=== PATIENT | male | born 1930 | race Caucasian/White ===

== ENCOUNTER 2016-07-23 23:37 | Inpatient (IN) | payer MEDICARE ==
[~2016-07-23] VITALS: Ht 185.4 cm; Wt 73.1 kg
[~2016-07-23 23:37] MED LIST: AMLO10TA2 PO; AMOX1TAB11 PO; AMOX1TAB61 PO; ASPI325T4 PO; FLUT16SP NS; INSU100C4 SQ; INSU100I18 SQ; LISI-334 PO; OMEP20TA PO; SOTA80TA PO; TEMA7.5C PO; TRAZ50TA15 PO; [UNRECOGNIZED DRUG - CODE] MC
[2016-07-24 00:01] LABS: BASO # 0.1 x10^3/uL (0.0-0.2); BASO % 1 % (0-3); EOS % 1 % (0-3); HEMATOCRIT 37.7 % (39.0-53.0); HEMOGLOBIN 12.2 g/dL (13.0-17.5); LYMPH # 0.7 x10^3/uL (1.0-4.8); LYMPH % 13 % (24-48); MEAN CORPUSCULAR HEMOGLOBIN 32 pg (25-35); MEAN CORPUSCULAR HGB CONC 32 g/dL (31-37); MEAN CORPUSCULAR VOLUME 100 fL (79-100); MONO % 8 % (0-9); NEUT % 77 % (31-73); PLATELET COUNT 191 x10^3/uL (140-400); RED BLOOD COUNT 3.76 x10^6/uL (4.30-5.70); RED CELL DISTRIBUTION WIDTH 13.8 % (11.5-14.5); WHITE BLOOD COUNT 5.8 x10^3/uL (4.0-11.0)
[2016-07-24 00:14] LABS: BLOOD UREA NITROGEN 20 mg/dL (8-26); CALCIUM 9.2 mg/dL (8.5-10.1); CARBON DIOXIDE > 45 mmol/L (21-32); CHLORIDE 98 mmol/L (98-107); CREATININE 0.7 mg/dL (0.7-1.3); GFR 107.2; GLUCOSE 145 mg/dL (70-99); POTASSIUM 3.1 mmol/L (3.5-5.1); SODIUM 148 mmol/L (136-145)
[2016-07-24 00:20] LABS: ALBUMIN 2.9 g/dL (3.4-5.0); ALK PHOS 111 U/L (46-116); ALT (SGPT) 16 U/L (16-63); AST (SGOT) 16 U/L (15-37); TOTAL BILIRUBIN 0.6 mg/dL (0.2-1.0); TOTAL PROTEIN 6.9 g/dL (6.4-8.2)
[2016-07-24 00:21] LABS: DIRECT BILIRUBIN 0.1 mg/dL (0.0-0.2)
[2016-07-24 00:58] LABS: BILIRUBIN,URINE NEGATIVE (NEG); GLUCOSE,URINE NEGATIVE (NEG); NITRITE,URINE POSITIVE (NEG); PROTEIN,URINE NEGATIVE (NEG-TRACE)
--- NOTE | 2016-07-24 01:01 | ACF ---
Admission Forms Criteria CHEST PAIN Clinical Indications for Admission to Inpatient Care (Place 'X' for any and all applicable criteria): Admission is indicated for chest pain and ANY ONE of the following(1)(2)(3)(4)(5 ): [ ]I. Angina with acute coronary syndrome (Also use Myocardial Infarction or Angina guideline) [ ]II. Hemodynamic instability [ ]III. Angina needing acute intervention as indicated by ALL of the following( 11)(12): [ ]a) Unstable angina is present as indicated by angina that is ANY ONE of the following: [ ]i) New onset [ ]ii) Nocturnal [ ]iii) Prolonged at rest [ ]iv) Progressive [ ]b) Angina warrants acute intervention as indicated by ANY ONE of the following: [ ]i) Recurrent angina (e.g, not responding as previously to treatment) [ ]ii) Angina at rest or with low-level activities despite initial medical therapy [ ]iii) New or presumably new ST-segment depression on ECG [ ]iv) Signs or symptoms of heart failure (eg, dyspnea, pulmonary edema) [ ]v) New or worsening mitral regurgitation [ ]vi) Hemodynamic instability [ ]vii) Dangerous arrhythmia (eg, sustained ventricular tachycardia) [ ]viii) History of percutaneous coronary intervention within 6 months [ ]ix) History of coronary artery bypass graft surgery [ ]x) BLAINE risk score of 2 or greater[A] [ ]xi) History of Diabetes(14) [ ]xii) High-risk cardiac ischemia findings on noninvasive testing (e.g, echocardiogram, treadmill testing, nuclear scan) [ ]xiii) Chronic renal insufficiency (ie, estimated GFR less than 60 mL/min/1.732m) [ ]xiv) Left ventricular ejection fraction less than 40% [ ]IV. Evidence of KS (eg, cardiac biomarkers positive, ST-segment elevation on ECG) also use Myocardial Infarction Criteria Form. [ ]V. Pulmonary edema [X]. Respiratory distress [ ]VII. Chest pain indicative of serious diagnosis other than coronary artery disease (eg, aortic dissection) [ ]VIII. Contraindications and/or Inappropriate clinical situations for Observational Care in patients with Chest Pain, when ANY ONE of the following is required: [ ]a) Patient with risk factor for pulmonary embolism, acute coronary syndrome and myocardial infarction (18) [ ]b) Patient with Pulmonary embolism require an average LOS of 4.3 days, therefore emergency department observation management is inappropriate 18,23 [ ]c) Painful condition/s in the elderly, have the highest rate of recidivism after emergency department observation management (10.8%) 20,21,22 [ ]d) Elevated cardiac biomarker requires intensive and exhaustive care (19) [ ]IX. General contraindications and/or Inappropriate clinical situations for Observational Care in patients with Chest Pain, when ANY ONE of the following is required: [ ]a) Prediction of prolongation of LOS based on ANY ONE of the following may be considered as a contraindication for observational care 2, 3, 4, 5, 6, 7, 8, 9, 10, 11 [ ]i) Age > 65 yrs. [ ]ii) Patient arriving by ambulance [ ]iii) Patient with high acuity [ ]iv) Patient requiring vital sign monitoring [ ]v) Patient on IV medication [ ]b) Systolic blood pressures 180mmHg 3,12 [ ]c) Patient with altered mental status including delirium and other alteration of consciousness, (3) [ ]d) Patient whose discharge disposition will be to a correction home or rehabilitation home should not be managed in Emergency Department Observation Unit. CMS rule requires 3 days hospital stay before such placement. 3,13 [ ]e) Patient with failure to thrive due to broad array of etiologies 3,16,17 [ ]f) Inability to ambulate 3,14 Extended stay beyond goal length of stay may be needed for (1)(28): [ ]a) Specific condition diagnosed after evaluation (eg, pulmonary embolism, aortic dissection) [ ]b) Unstable angina [ ]c) Continued suspicion of acute coronary syndrome with inability to complete needed cardiac evaluation (eg, patient clinically unable to undergo stress testing) [ ]d) Myocardial infarction (Contents from ANGINA and CHEST PAIN clinical indications for admission to inpatient care have been integrated in this form) The original [employer] content created by [employer] has been revised. The portions of the content which have been revised are identified through the use of italic text or in bold, and [employer] has neither reviewed nor approved the modified material. All other unmodified content is copyright [employer]. Please see references footnoted in the original [employer] edition 2016 MIRIAM HORN Jul 24, 2016 01:01
[2016-07-24 01:03] LABS: BACTERIA,URINE MANY /HPF (0-FEW); RBC,URINE 0 /HPF (0-2); SQUAMOUS EPITHELIAL CELL,UR FEW /LPF
[2016-07-24 01:04] LABS: YEAST,URINE PRESENT /HPF
--- NOTE | 2016-07-24 01:16 | RAD ---
INDICATION: Fell, hit back of head. COMPARISON: None TECHNIQUE: Axial, noncontrast CT images obtained through the head and cervical spine. Coronal and sagittal reformats are provided of the cervical spine. One or more of the following individualized dose reduction techniques were utilized for this examination: 1. Automated exposure control; 2. Adjustment of the mA and/or kV according to patient size; 3. Use of iterative reconstruction technique. FINDINGS: No acute intracranial process is identified, specifically no acute blood products, midline shift, mass effect or extra-axial fluid collections. Ventricles and sulci appear appropriate for patient's age. Basilar cisterns are maintained. Periventricular and subcortical white matter low attenuation is nonspecific although suggestive of chronic microvascular ischemic changes. Intracranial calcifications are present. The visualized paranasal sinuses are clear. Mastoid air cells are clear. No calvarial fracture is present. Overlying scalp is intact. No acute fracture or dislocation is seen within the cervical spine. The C1-C2 articulation is maintained. Normal cervical lordosis and alignment is maintained. The posterior elements are intact. Scattered degenerative changes are present. Visualized soft tissues of the neck demonstrate no acute finding. There is significant atherosclerotic calcification involving the bilateral carotid arteries. Visualized lung apices are clear. IMPRESSION: 1. No acute intracranial process. 2. No acute osseous injury involving the cervical spine. Electronically signed by: Regina Schmid (Jul 24, 2016 01:15:19)
--- NOTE | 2016-07-24 02:13 | ACF ---
Admission Forms Criteria CARDIOLOGY GRG Clinical Indications for Admission to Inpatient Care ( Place 'X' for any and all applicable criteria): Hospital admission is needed for appropriate care of the patient because of ANY ONE of the following (1): [ ] I. Hemodynamic instability as indicated by ALL of the following (1)(2)(3) (4)(5) [ ]a) Vital signs or other findings not as expected for chronic patient condition or baseline [ ]b) Instability indicated by ANY ONE of the following: [ ]i) Hypotension [ ]ii) Symptomatic Tachycardia unresponsive to treatment ( e.g., analgesia, fluids, sedation as indicated) [ ]iii) Inadequate perfusion indicated by ANY ONE of the following: [ ] 1) Lactic acidosis (> 2 mmol/L) [ ] 2) New abnormal capillary refill (> 3 seconds) [ ] 3) Reduced urine output [ ] 4) New altered mental status [ ]iv) Orthostatic vital sign changes unresponsive to treatment (e.g., fluids) [ ]v) IV inotropic or vasopressor medication required to maintain adequate blood pressure or perfusion [ ] II. Severe heart failure as indicated by ANY ONE of the following(17)(18) [ ]a) Respiratory distress [ ]b) Hypotension [ ]c) Anasarca (refractory to outpatient therapy) [ ]d) Cardiac arrhythmias of immediate concern [ ]e) Myocardial ischemia [ ] III. Cardiac arrhythmias or findings of immediate concern indicated by ANY ONE of the following (19)(20): [ ] a) Heart rhythms that are inherently dangerous or unstable indicated by ANY ONE of the following (21)(22)(23): [ ] i) Resuscitated ventricular fibrillation or cardiac arrest [ ] ii) Ventricular escape rhythm [ ] iii) Sustained ventricular tachycardia (30 seconds or more of ventricular rhythm at greater than 100 beats per minute) [ ] iv) Nonsustained ventricular tachycardia and ANY ONE of the following: [ ] 1) Suspected cardiac ischemia as cause or consequence of ventricular tachycardia [ ] 2) In setting of acute myocarditis [ ] b) Unstable cardiac conduction defects indicated by ANY ONE of the following(23)(24)(25) [ ] i) Type II second-degree atrioventricular block [ ]ii) Third-degree atrioventricular block [ ]iii) New-onset left bundle branch block with suspected myocardial ischemia [ ]c) Any heart rhythm and ANY ONE of the following (21)(22)(26)(27) (28) [ ] i) Continuous long-term ECG monitoring needed (e.g., initiation of drug requiring monitoring for more than 24 hours) [ ] ii) Patient has automatic implanted cardioverter defibrillator that is repeatedly firing, malfunctioning, or in need of immediate adjustment of settings beyond the scope of ambulatory or observation care [ ]d) Heart rhythms of concern due to ANY ONE of the following: [ ] i) Hypotension [ ] ii) Respiratory distress [ ] iii) Association with other significant symptoms (e.g., bradycardia with syncope or ongoing dizziness, supraventricular tachycardia with chest pain (14)(15)(17) [ ] IV. Monitoring for cardiac contusion beyond the scope of observation care needed [A](30)(31)(32) [ ] V. Surgical or device complication (e.g., valve replacement complication , pacemaker dysfunction) (35)(41)(44)(45)(46) [ ] . Inpatient palliative care needed. [B](49) Also use Inpatient Palliative Care Criteria [ ] VII. Nonbacterial thrombotic (marantic) endocarditis (36)(43)(47)(48) [X] VIII. Cardiology condition, symptom, or finding for which emergency and observation care has failed or are not considered appropriate. [ ] IX. Acute valvular disease requiring inpatient as indicated by ANY ONE of the following (41) [ ]a) Acute valvular regurgitation (42) [ ]b) Noninfectious valvulitis (43) [ ]c) Obstructive valve thrombosis [ ]d) Paravalvular leak [ ]e) Other significant valvular disorder remaining after emergency or observation level of care (as appropriate) [ ]X. Pericardial disease requiring inpatient treatment as indicated by ANY ONE of the following (33)(34)(35)(36)(37) [ ]a) Suspected tamponade (38)(39)(40) [ ]b) Hemopericardium [ ]c) Other significant pericardial disorder remaining after emergency or observation level of care (as appropriate) [ ] XI. Cardiac ischemia beyond scope of emergency and observation care. [ ] XII. Hypertension requiring inpatient treatment as indicated by ANY ONE of the following (6)(7)(8) [ ]a) SBP greater than 220 mm Hg or DBP greater than 120 mmHg despite treatment [ ]b) SBP greater than 140 mm Hg or DBP greater than 100 mm Hg with evidence of acute end organ damage as indicated by ANY ONE of the following [ ] i) Encephalopathy [ ] ii) Acute renal failure as indicated by new onset of ANY ONE of the following (9)(10)(11)(12)(13) [ ]1) 3-fold rise in serum creatinine from baseline [ ]2) Serum creatinine greater than 4 mg/dL ( 354 micromoles/L) with acute rise greater than 0.5 mg/dL (44.2 micromoles/L) [ ]3) Reduction of more than 75% in estimated glomerular filtration rate from baseline [ ]4) Estimated glomerular filtration rate less than 35 mL/min/1.73m2 (0.59 mL/sec/1.73m2) in child up to 18 years of age [ ]5) Cessation of urine output indicated by ALL of the following [ ]A. Adequate volume status [ ]B. Inadequate urine output as indicated by ANY ONE of the following [ ]a. Urine output less than 0.3 mL/kg/hr for 24 hours [ ]b. Anuria (urine output less than 0.1 mL/kg/hr) for 12 hours [ ] iii) Aortic dissection [ ] iv) Myocardial Ischemia [ ] v) Left ventricular heart failure [ ]vi) Retinal Hemorrhage [ ]vii) Other significant finding [ ]c) Hypertension in child requiring inpatient treatment as indicated by ALL of the following(14)(15)(16) [ ] i) Outpatient treatment not effective, not available, or not appropriate [ ]ii) SBP or DBP greater than 95th percentile for age [ ]iii) Evidence of acute end organ damage as indicated by ANY ONE of the following [ ]1) Altered mental status [ ]2) Acute renal failure as indicated by new onset of ANY ONE of the following(9)(10)(11)(12)(13) [ ]A. 3-fold rise in serum creatinine from baseline [ ]B. Serum creatinine greater than 4 mg/dL (354 micromoles/L) with acute rise greater than 0.5 mg/dL (44.2 micromoles/L) [ ]C. Reduction of more than 75% in estimated glomerular filtration rate from baseline [ ]D. Estimated glomerular filtration rate less than 35 mL/min/1.73m2 (0.59 mL/sec/1.73m2) in child up to 18 years of age [ ]E. Cessation of urine output indicated by ALL of the following [ ]a. Adequate volume status [ ]b. Inadequate urine output as indicated by ANY ONE of the following [ ]i) Urine output less than 0.3 mL/kg/hr for 24 hours [ ]ii) Anuria ( urine output less than 0.1 mL/kg/hr) for 12 hours [ ]3) Severe headache [ ]4) Visual disturbance [ ]5) Retinal hemorrhage [ ]6) Other significant finding [ ]XIII. Complications of transplanted heart indicated by ANY ONE of the following(61): [ ]a) Acute graft rejection requiring inpatient management (eg, intravenous immunosuppression)(62)(63) [ ]b) Acute graft heart failure indicated by ANY ONE of the following(64): [ ]i) Hemodynamic instability [ ]ii) Cardiac arrhythmias of immediate concern [ ]iii) Pulmonary edema that is very severe (eg, mechanical ventilation needed, imminent or likely, need for 100% oxygen to keep oxygen saturation above 90%) [ ]iv) Pulmonary edema that is persistent as indicated by ALL of the following: [ ]1) New need for oxygen therapy to keep oxygen saturation above 90% (or increased FiO2 need from baseline) [ ]2) Has not improved sufficiently with emergency department or observation care IV diuretics or other heart failure treatments[E] [ ]v) Altered mental status that is severe or persistent [ ]vi) Increased creatinine (new on laboratory test) with reduction of more than 50% in estimated glomerular filtration rate from baseline [ ]vii) Progressively (ongoing) rising creatinine (known from past laboratory test) with reduction of more than 25% in estimated glomerular filtration rate from baseline [ ]viii) Acute renal failure [ ]ix) Acute peripheral ischemia (eg, examination shows pulseless, cool, mottled, or cyanotic extremity) [ ]x) Pulmonary artery catheter monitoring needed [ ]xi) Other sign or symptom of heart failure requiring inpatient treatment (ie, too severe or not responsive to outpatient and observation care treatment) [ ]c) Infection requiring inpatient management (eg, Hemodynamic instability, need for intravenous antimicrobial treatment)(66)(67)(68)(69)(70) [ ]d) Cardiac allograft vasculopathy requiring inpatient management ( eg evidence of cardiac ischemia)(71) [ ]e) Other complication of transplanted heart (eg, stroke, severe pulmonary hypertension, severe valvular dysfunction) requiring inpatient management(72) The original [facility] content created by [facility] has been revised. The portions of the content which have been revised are identified through the use of italic text or in bold, and [facility] has neither reviewed nor approved the modified material. All other unmodified content is copyright [facility]. Please see references footnoted in the original [facility] edition 2016 Admission Criteria Met?: Yes MIRIAM HORN Jul 24, 2016 02:13
[2016-07-24] MEDS ORDERED: MORPHINE SULFATE 2 MG/ML DISP.SYRIN. IV PRN (02:15)
[2016-07-24] MEDS ORDERED: ONDANSETRON PF 4 MG/2 ML VIAL. IV PRN ×2 (02:15→11:30)
--- NOTE | 2016-07-24 02:32 | PHYS DOC ---
Past Medical History Past Medical History: A-Fib, Cancer, Diabetes-Type II, High Cholesterol, Hip Fracture, Hypertension Additional Past Medical Histor: BLADDER, PROSTATE CA Past Surgical History: Cancer Surgery, Coronary Bypass Surgery, Pacemaker Additional Past Surgical Histo: BLADDER, PROSTATE Alcohol Use: None Drug Use: None Adult General Chief Complaint Chief Complaint: DYSPNEA/RESPIRATOY DISTRESS HPI HPI 85-year-old male presenting the emergency department today with head trauma. Patient was reportedly found between a table and a couch after having syncopal episode and saturating approximate 74% on room air. He received a DuoNeb on transport which improved his saturation. He has a mild nonradiating intermittent headache without alleviating factors. He denies chest pain. He denies abdominal pain nausea vomiting or diaphoresis. He denies loss of consciousness. His is here with him today. Review of Systems Review of Systems Negative for fevers chills abdominal pain chest pain. Positive for shortness of breath. Positive for head trauma. All other review of systems is negative unless otherwise noted in history of present illness. Allergies Allergies Allergies Coded Allergies Type Severity Reaction Last Updated Verified Sulfa (Sulfonamide Antibiotics) Allergy Intermediate 07/24/16 Yes Physical Exam Physical Exam Constitutional: Well developed, well nourished, no acute distress, non-toxic appearance. [] HENT: Normocephalic, small abrasion without laceration to the posterior of the patient's occiput. bilateral external ears normal, oropharynx moist, no oral exudates, nose normal. Eyes: PERRLA, EOMI, conjunctiva normal, no discharge. [] Neck: Normal range of motion, no tenderness, supple, no stridor. Nontender cervical thoracic or lumbar spine. No ecchymosis lacerations or abrasions present. Cardiovascular:Heart rate regular rhythm, no murmur [] Lungs & Thorax: Bilateral breath sounds clear to auscultation Abdomen: Bowel sounds normal, soft, no tenderness, no masses, no pulsatile masses. [] Skin: Warm, dry, no erythema, no rash. Back: No tenderness, no CVA tenderness. [] Extremities: No tenderness, no cyanosis, no clubbing, ROM intact, no edema. Neurologic: Alert and oriented X 3, normal motor function, normal sensory function, no focal deficits noted. [] Psychologic: Affect normal, judgement normal, mood normal. Current Patient Data Vital Signs Vital Signs Date Time Temp Pulse Resp B/P Pulse Ox O2 Delivery O2 Flow Rate FiO2 07/23/16 23:37 98.4 88 30 136/65 96 Nasal Cannula 4 98.4 Lab Values Laboratory Tests Test 07/23/16 23:40 White Blood Count 5.8x10^3/uL (4.0-11.0) Red Blood Count 3.76x10^6/uL (4.30-5.70) L Hemoglobin 12.2g/dL (13.0-17.5) L Hematocrit 37.7% (39.0-53.0) L Mean Corpuscular Volume 100fL (79-100) Mean Corpuscular Hemoglobin 32pg (25-35) Mean Corpuscular Hemoglobin Concent 32g/dL (31-37) Red Cell Distribution Width 13.8% (11.5-14.5) Platelet Count 191x10^3/uL (140-400) Neutrophils (%) (Auto) 77% (31-73) H Lymphocytes (%) (Auto) 13% (24-48) L Monocytes (%) (Auto) 8% (0-9) Eosinophils (%) (Auto) 1% (0-3) Basophils (%) (Auto) 1% (0-3) Neutrophils # (Auto) 4.5x10^3uL (1.8-7.7) Lymphocytes # (Auto) 0.7x10^3/uL (1.0-4.8) L Monocytes # (Auto) 0.5x10^3/uL (0.0-1.1) Eosinophils # (Auto) 0.1x10^3/uL (0.0-0.7) Basophils # (Auto) 0.1x10^3/uL (0.0-0.2) Sodium Level 148mmol/L (136-145) H Potassium Level 3.1mmol/L (3.5-5.1) L Chloride Level 98mmol/L (98-107) Carbon Dioxide Level > 45mmol/L (21-32) H Anion Gap (6-14) Blood Urea Nitrogen 20mg/dL (8-26) Creatinine 0.7mg/dL (0.7-1.3) Estimated GFR (Cockcroft-Gault) 107.2 Glucose Level 145mg/dL (70-99) H Calcium Level 9.2mg/dL (8.5-10.1) Total Bilirubin 0.6mg/dL (0.2-1.0) Direct Bilirubin 0.1mg/dL (0.0-0.2) Aspartate Amino Transferase (AST) 16U/L (15-37) Alanine Aminotransferase (ALT) 16U/L (16-63) Alkaline Phosphatase 111U/L (46-116) Troponin I Quantitative 0.030ng/mL (0.000-0.055) DK-Tat-Z-Type Natriuretic Peptide 1122pg/mL (0-449) H Total Protein 6.9g/dL (6.4-8.2) Albumin 2.9g/dL (3.4-5.0) L Lipase 154U/L (73-393) Laboratory Tests 07/23/16 23:40 Laboratory Tests 07/23/16 23:40 EKG EKG EKG shows A. fib versus flutter with a regular rate. [place] is leftward. Intervals are within normal limits. ST segments are congruent. Radiology/Procedures Radiology/Procedures [] Chest x-ray shows left-sided pleural effusion with radio opacification suggestive of infiltrate. No pneumothorax present. Course & Med Decision Making Course & Med Decision Making Pertinent Labs and Imaging studies reviewed. (See chart for details) 85-year-old male presenting to the emergency department today with hypoxia fall and head trauma. His oxygen saturations improved significantly upon initial DuoNeb therapy which return the patient to baseline at 4 L nasal cannula. Otherwise the patient's vital signs showed mild hypertension with a normal pulse and afebrile. Physical exam showed mild crackles on the left more than the right. Small swelling without laceration on the posterior occiput. Otherwise unremarkable. Labs were sent which showed normal white blood cell count with a mild anemia. Urinalysis suggestive of infection. Chemistry panel shows mild hypokalemia with CO2 retention. ProBNP elevation. The patient was given IV antibiotics for urinary tract infection it will also cover for probable pneumonia given the patient's left pleural effusion. The patient was then admitted to our hospital for further evaluation workup and care. Dragon Disclaimer Dragon Disclaimer This electronic medical record was generated, in whole or in part, using a voice recognition dictation system. Departure Departure Impression: Primary Impression: Hypoxia Additional Impressions: Fall Difficulty breathing Urinary tract infection Elevated brain natriuretic peptide (BNP) level Pneumonia Disposition: 09 ADMITTED INPATIENT Admitting Physician: Abiel Hines Condition: STABLE Referrals: JACK ANDREWS (PCP) Problem Qualifiers SHRADDHA MCLEOD MD Jul 24, 2016 02:32
[2016-07-24] MEDS ORDERED: CEFTRIAXONE 1GM IVPB FOR OMNI 50 ML IV ONE (03:00)
[2016-07-24 03:04] VITALS: BP 134/72
[2016-07-24] MEDS ORDERED: ATOR40TA59 PO (03:48)
[2016-07-24] MEDS ORDERED: IPRA3AMP NEB (03:48)
[2016-07-24] MEDS ORDERED: CLOP75TA PO (03:48)
[2016-07-24] MEDS ORDERED: METO25TA4 PO (03:48)
[2016-07-24] MEDS ORDERED: FURO40TA4 PO (03:48)
[2016-07-24] MEDS ORDERED: INSU100C SQ (03:48)
[2016-07-24] MEDS ORDERED: HYDR-2666 PO (03:48)
[2016-07-24] MEDS ORDERED: CHOL20002 PO (03:48)
[2016-07-24] MEDS ORDERED: PANT40TA5 PO (03:48)
[2016-07-24] MEDS ORDERED: MELA5TAB PO (03:48)
--- NOTE | 2016-07-24 06:13 | EKG ---
[facility] [address] [place] [address] Test Date: 2016-07-23 Test Time: 23:51:57 Pat Name: OLIVIER RAMIREZ Department: Room: 204 1 Gender: M [employer]: : 1930 Requested By: SHRADDHA MCLEOD Order Number: [id number] Reading MD: Curt Dang Measurements Intervals [place] Rate: 90 P: [place]: QRS: 8 QRSD: 84 T: 71 QT: 342 QTc: 422 Interpretive Statements ATRIAL FIBRILLATION NON-SPECIFIC ST/T CHANGES Electronically Signed On 07-30-2016 11:22:06 GUM PULLER by Curt Dang
[2016-07-24] MEDS ORDERED: MAGN2400 PO (07:05)
[2016-07-24] MEDS ORDERED: DOCU-27 PO (07:05)
[2016-07-24 07:55] VITALS: BP 143/71
--- NOTE | 2016-07-24 08:01 | RAD ---
EXAM: Chest, single view. HISTORY: Fatigue. COMPARISON: 07/21/2006. FINDINGS: A frontal view of the chest is obtained. There are small right and moderate left pleural effusions. There is diffuse left lower lobe predominant interstitial infiltrate. There are multiple calcified granulomas. The heart is normal in size. 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 There is a left cardiac pacemaker with leads in expected position. There is stable right apical pleural thickening likely due to scarring. IMPRESSION: 1. Small right and moderate left pleural effusions. 2. Diffuse left lower lobe predominant interstitial infiltrate. 3. Stable right apical pleural thickening.
[2016-07-24] MEDS ORDERED: DEXTROSE 50% 25 GM / 50ML DISP.SYRIN. IV PRN (08:45)
[2016-07-24] MEDS ORDERED: INSULIN ASPART 300 UNITS/3 ML INSULN.PEN SQ ONE ×2 (09:00→18:30)
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
[2016-07-24 10:54] LABS: OBC FLU VALID
[2016-07-24 10:59] VITALS: BP 134/68
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
[2016-07-24] MEDS ORDERED: ALBUTEROL SULFATE 2.5 MG/3 ML NEBU. NEB PRN ×2 (11:30→11:45)
[2016-07-24] MEDS ORDERED: HYDROCODONE/APAP 5/325MG TABLET. PO PRN (11:30)
[2016-07-24] MEDS ORDERED: hydrALAZINE 20 MG/ML VIAL. IVP PRN (11:30)
[2016-07-24] MEDS ORDERED: ACETAMINOPHEN 325 MG TABLET. PO PRN (11:30)
[2016-07-24] MEDS ORDERED: MAGNESIUM HYDROXIDE 2,400 MG/30 ML ORAL.SUSP. PO PRN (11:45)
[2016-07-24] MEDS: POTASSIUM CHLORIDE 20 MEQ TABLET.ER. PO SCH ×2 (12:04→20:16)
[2016-07-24] MEDS: ASPIRIN 325 MG TABLET PO SCH (12:05)
[2016-07-24] MEDS: DOCUSATE SODIUM 100 MG CAPSULE PO PRN ×2 (12:05→20:16)
[2016-07-24] MEDS: CLOPIDOGREL BISULFATE 75 MG TABLET PO SCH (12:06)
[2016-07-24] MEDS: CHOLECALCIFEROL (VITAMIN D3) 1,000 UNIT TABLET PO SCH (12:07)
[2016-07-24] MEDS: FUROSEMIDE 40 MG TABLET PO SCH ×2 (12:07→13:40)
[2016-07-24] MEDS: METOPROLOL TART IMMED RELEASE 25 MG TABLET PO SCH (12:08)
[2016-07-24] MEDS: PANTOPRAZOLE 40 MG TABLET. PO SCH (12:08)
--- NOTE | 2016-07-24 12:25 | PDOC ---
Provider Note Provider Note DICTATED KEMI CHISHOLM MD Jul 24, 2016 12:25
[2016-07-24] MEDS ORDERED: FUROSEMIDE 40 MG/4 ML VIAL IVP ONE (12:30)
[2016-07-24] MEDS ORDERED: POTASSIUM CHLORIDE 10 MEQ TABLET.ER. PO ONE (12:45)
[2016-07-24] MEDS: INSULIN ASPART 300 UNITS/3 ML INSULN.PEN SQ SCH ×3 (12:55→18:10)
--- NOTE | 2016-07-24 13:29 | RAD ---
EXAM: Carotid Doppler sonogram. HISTORY: Carotid bruit. TECHNIQUE: Doppler sonographic evaluation of the neck was performed and static images are submitted for review. FINDINGS: There is moderate atherosclerotic plaque within the carotid bulbs and internal and external carotid arteries. The peak systolic velocity within the right common carotid artery is 83 cm/sec. The peak systolic velocities within the right proximal, mid and distal internal carotid artery are 120 cm/sec, 95 cm/sec, and 79 cm/sec, respectively. The peak systolic velocity within the left common carotid artery is 93 cm/sec. The peak systolic velocities within the left proximal, mid and distal internal carotid artery are 106 cm/sec, 99 cm/sec, and 59 cm/sec, respectively. There is normal antegrade flow within both vertebral arteries. IMPRESSION: 1. Upper limits of normal peak systolic velocity within the proximal right ICA and minimally elevated right ICA to CCA ratio, suggesting near 50-69% stenosis. 2. Moderate atherosclerotic plaque within the carotid bifurcations. PQRS Statement: NASCET criteria were utilized for this exam.
[2016-07-24 15:03] VITALS: BP 112/46
[2016-07-24] MEDS ORDERED: INSULIN DETEMIR 300 UNITS/3 ML INSULN.PEN. SQ ONE (18:15)
[2016-07-24 19:20] VITALS: BP 141/58
[2016-07-24] MEDS: ATORVASTATIN CALCIUM 40 MG TABLET. PO SCH (20:16)
[2016-07-24] MEDS: traZODone 50 MG TABLET. PO SCH (20:16)
[2016-07-24] MEDS: INSULIN DETEMIR 300 UNITS/3 ML INSULN.PEN. SQ SCH (20:27)
[2016-07-24] MEDS ORDERED: NON FORMULARY ITEM (Melatonin 5 MG) PO SCH (21:00)
[2016-07-24] MEDS: HEPARIN PF for SUB-Q USE 5,000 UNIT/0.5 ML VIAL. SQ SCH (22:59)
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
[2016-07-24 23:30] VITALS: BP 125/68
[2016-07-25] VITALS (9 sets, daily range): BP systolic 79–148; BP diastolic 48–72
[2016-07-25 05:03] LABS: BASO % 1 % (0-3); EOS % 1 % (0-3); HEMATOCRIT 33.9 % (39.0-53.0); HEMOGLOBIN 10.9 g/dL (13.0-17.5); LYMPH # 0.8 x10^3/uL (1.0-4.8); LYMPH % 15 % (24-48); MEAN CORPUSCULAR HEMOGLOBIN 33 pg (25-35); MEAN CORPUSCULAR HGB CONC 32 g/dL (31-37); MEAN CORPUSCULAR VOLUME 101 fL (79-100); MONO % 8 % (0-9); NEUT % 76 % (31-73); PLATELET COUNT 175 x10^3/uL (140-400); RED BLOOD COUNT 3.36 x10^6/uL (4.30-5.70); RED CELL DISTRIBUTION WIDTH 13.6 % (11.5-14.5)
[2016-07-25 05:30] LABS: BLOOD UREA NITROGEN 27 mg/dL (8-26); CALCIUM 9.6 mg/dL (8.5-10.1); CARBON DIOXIDE > 45 mmol/L (21-32); CHLORIDE 100 mmol/L (98-107); CREATININE 0.8 mg/dL (0.7-1.3); GFR 91.9; GLUCOSE 282 mg/dL (70-99); POTASSIUM 4.3 mmol/L (3.5-5.1); SODIUM 146 mmol/L (136-145)
[2016-07-25 05:33] LABS: CHOLESTEROL/HDL RATIO 2.8
[2016-07-25] MEDS: HEPARIN PF for SUB-Q USE 5,000 UNIT/0.5 ML VIAL. SQ SCH ×3 (06:11→22:00)
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
[2016-07-25] MEDS: INSULIN ASPART 300 UNITS/3 ML INSULN.PEN SQ SCH ×6 (07:30→17:50)
--- NOTE | 2016-07-25 07:30 | RAD ---
EXAM: Chest, single view. HISTORY: Congestive heart failure. COMPARISON: 07/24/2016. FINDINGS: A frontal view of the chest is obtained. There has been no change in moderate left and small right pleural effusions and diffuse lower lobe predominant left lung atelectasis or infiltrate. The heart is normal in size. 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 There is right apical pleural thickening likely due to scarring. There is a left cardiac pacemaker with leads in expected position. There are calcified granulomas. IMPRESSION: 1. Stable small right and moderate left pleural effusions. 2. Stable diffuse lower lobe predominant left lung infiltrate or atelectasis. 3. Stable right apical pleural thickening.
[2016-07-25] MEDS: ASPIRIN 325 MG TABLET PO SCH (08:41)
[2016-07-25] MEDS: PANTOPRAZOLE 40 MG TABLET. PO SCH (08:41)
[2016-07-25] MEDS: CHOLECALCIFEROL (VITAMIN D3) 1,000 UNIT TABLET PO SCH (08:41)
[2016-07-25] MEDS: CLOPIDOGREL BISULFATE 75 MG TABLET PO SCH (08:41)
[2016-07-25] MEDS: DOCUSATE SODIUM 100 MG CAPSULE PO PRN (08:58)
[2016-07-25] MEDS: METOPROLOL TART IMMED RELEASE 25 MG TABLET PO SCH ×2 (09:00→21:00)
[2016-07-25] MEDS: FUROSEMIDE 40 MG TABLET PO SCH ×2 (09:00→14:00)
[2016-07-25] MEDS: HYDROCODONE/APAP 5/325MG TABLET. PO PRN ×2 (09:59→22:40)
--- NOTE | 2016-07-25 11:41 | PDOC ---
PROGRESS NOTES Chief Complaint Chief Complaint 1. cc: fall 1. Mechanical fall.no syncope 2. Atrial fibrillation, currently rate controlled. 3. Coronary artery disease and CABG history. 4. Chronic obstructive pulmonary disease. 5. Hypertension. 6. Hypoxic respiratory failure. 7. Hyperlipidemia. 8. Gastroesophageal reflux disease. 9. UTI 10. Physical debility Plan Echo pending oral ciprofloxacin diuresis per cardiology PT/OT Labs reviwed, Monitor electrolytes. SSI supplemental oxygen. History of Present Illness History of Present Illness physically weak no fever no chills. no acute events. Vitals Vitals Vital Signs Date Time Temp Pulse Resp B/P Pulse Ox O2 Delivery O2 Flow Rate FiO2 07/25/16 10:59 18 95 Nasal Cannula 4.0 07/25/16 09:00 112 136/72 07/25/16 07:38 97.9 97.9 Physical Exam General: Alert, Oriented X3, Cooperative, No acute distress Heart: Normal S1, Normal S2, Other (IRRR; tele: atrial fib; bilateral carotid bruits) Lungs: Clear Abdomen: Normal bowel sounds, Soft Extremities: No edema, Normal pulses Skin: No rashes Labs LABS Laboratory Tests Test 07/24/16 12:09 07/24/16 14:10 07/24/16 17:07 07/24/16 20:21 Glucose (Fingerstick) 239mg/dL (70-99) 152mg/dL (70-99) 191mg/dL (70-99) Troponin I Quantitative 0.040ng/mL (0.000-0.055) Test 07/25/16 04:15 White Blood Count 5.0x10^3/uL (4.0-11.0) Red Blood Count 3.36x10^6/uL (4.30-5.70) Hemoglobin 10.9g/dL (13.0-17.5) Hematocrit 33.9% (39.0-53.0) Mean Corpuscular Volume 101fL (79-100) Mean Corpuscular Hemoglobin 33pg (25-35) Mean Corpuscular Hemoglobin Concent 32g/dL (31-37) Red Cell Distribution Width 13.6% (11.5-14.5) Platelet Count 175x10^3/uL (140-400) Neutrophils (%) (Auto) 76% (31-73) Lymphocytes (%) (Auto) 15% (24-48) Monocytes (%) (Auto) 8% (0-9) Eosinophils (%) (Auto) 1% (0-3) Basophils (%) (Auto) 1% (0-3) Neutrophils # (Auto) 3.8x10^3uL (1.8-7.7) Lymphocytes # (Auto) 0.8x10^3/uL (1.0-4.8) Monocytes # (Auto) 0.4x10^3/uL (0.0-1.1) Eosinophils # (Auto) 0.0x10^3/uL (0.0-0.7) Basophils # (Auto) 0.0x10^3/uL (0.0-0.2) Sodium Level 146mmol/L (136-145) Potassium Level 4.3mmol/L (3.5-5.1) Chloride Level 100mmol/L (98-107) Carbon Dioxide Level > 45mmol/L (21-32) Anion Gap (6-14) Blood Urea Nitrogen 27mg/dL (8-26) Creatinine 0.8mg/dL (0.7-1.3) Estimated GFR (Cockcroft-Gault) 91.9 Glucose Level 282mg/dL (70-99) Calcium Level 9.6mg/dL (8.5-10.1) Triglycerides Level 82mg/dL (0-150) Cholesterol Level 127mg/dL (0-200) LDL Cholesterol, Calculated 65mg/dL (0-100) VLDL Cholesterol, Calculated 16mg/dL (0-40) HDL Cholesterol 46mg/dL (40-60) Cholesterol/HDL Ratio 2.8 Assessment and Plan Assessmemt and Plan Problems Medical Problems: (1) Difficulty breathing Status: Acute (2) Elevated brain natriuretic peptide (BNP) level Status: Acute (3) Fall Status: Acute (4) Hypoxia Status: Acute (5) Pneumonia Status: Acute (6) Urinary tract infection Status: Acute Problems: Comment Review of Relevant I have reviewed the following items ede (where applicable) has been applied. Labs Laboratory Tests Test 07/23/16 23:40 07/24/16 00:45 07/24/16 07:58 07/24/16 08:20 White Blood Count 5.8x10^3/uL (4.0-11.0) Red Blood Count 3.76x10^6/uL (4.30-5.70) Hemoglobin 12.2g/dL (13.0-17.5) Hematocrit 37.7% (39.0-53.0) Mean Corpuscular Volume 100fL (79-100) Mean Corpuscular Hemoglobin 32pg (25-35) Mean Corpuscular Hemoglobin Concent 32g/dL (31-37) Red Cell Distribution Width 13.8% (11.5-14.5) Platelet Count 191x10^3/uL (140-400) Neutrophils (%) (Auto) 77% (31-73) Lymphocytes (%) (Auto) 13% (24-48) Monocytes (%) (Auto) 8% (0-9) Eosinophils (%) (Auto) 1% (0-3) Basophils (%) (Auto) 1% (0-3) Neutrophils # (Auto) 4.5x10^3uL (1.8-7.7) Lymphocytes # (Auto) 0.7x10^3/uL (1.0-4.8) Monocytes # (Auto) 0.5x10^3/uL (0.0-1.1) Eosinophils # (Auto) 0.1x10^3/uL (0.0-0.7) Basophils # (Auto) 0.1x10^3/uL (0.0-0.2) Sodium Level 148mmol/L (136-145) Potassium Level 3.1mmol/L (3.5-5.1) Chloride Level 98mmol/L (98-107) Carbon Dioxide Level > 45mmol/L (21-32) Anion Gap (6-14) Blood Urea Nitrogen 20mg/dL (8-26) Creatinine 0.7mg/dL (0.7-1.3) Estimated GFR (Cockcroft-Gault) 107.2 Glucose Level 145mg/dL (70-99) Calcium Level 9.2mg/dL (8.5-10.1) Total Bilirubin 0.6mg/dL (0.2-1.0) Direct Bilirubin 0.1mg/dL (0.0-0.2) Aspartate Amino Transf (AST/SGOT) 16U/L (15-37) Alanine Aminotransferase (ALT/SGPT) 16U/L (16-63) Alkaline Phosphatase 111U/L (46-116) Troponin I Quantitative 0.030ng/mL (0.000-0.055) 0.039ng/mL (0.000-0.055) QJ-Swb-N-Type Natriuretic Peptide 1122pg/mL (0-449) Total Protein 6.9g/dL (6.4-8.2) Albumin 2.9g/dL (3.4-5.0) Lipase 154U/L (73-393) Urine Collection Type Unknown Urine Color Yellow Urine Clarity Cloudy Urine pH 7.0 Urine Specific [place] 1.010 Urine Protein Negativemg/dL (NEG-TRACE) Urine Glucose (UA) Negativemg/dL (NEG) Urine Ketones (Stick) Negativemg/dL (NEG) Urine Blood Negative (NEG) Urine Nitrite Positive (NEG) Urine Bilirubin Negative (NEG) Urine Urobilinogen Dipstick 1.0mg/dL (0.2 mg/dL) Urine Leukocyte Esterase Small (NEG) Urine RBC 0/HPF (0-2) Urine WBC 5-10/HPF (0-4) Urine Squamous Epithelial Cells Few/LPF Urine Amorphous Sediment Present/HPF Urine Bacteria Many/HPF (0-FEW) Urine Hyaline Casts Few/HPF Urine Mucus Mod/LPF Urine Yeast Present/HPF Glucose (Fingerstick) 340mg/dL (70-99) Lactic Acid Level 0.9mmol/L (0.4-2.0) Magnesium Level 2.0mg/dL (1.8-2.4) Thyroid Stimulating Hormone (TSH) 0.876uIU/mL (0.358-3.74) Test 07/24/16 10:00 07/24/16 12:09 07/24/16 14:10 07/24/16 17:07 Influenza Type A Antigen Negative (NEGATIVE) Influenza Type B Antigen Negative (NEGATIVE) Glucose (Fingerstick) 239mg/dL (70-99) 152mg/dL (70-99) Troponin I Quantitative 0.040ng/mL (0.000-0.055) Test 07/24/16 20:21 07/25/16 04:15 Glucose (Fingerstick) 191mg/dL (70-99) White Blood Count 5.0x10^3/uL (4.0-11.0) Red Blood Count 3.36x10^6/uL (4.30-5.70) Hemoglobin 10.9g/dL (13.0-17.5) Hematocrit 33.9% (39.0-53.0) Mean Corpuscular Volume 101fL (79-100) Mean Corpuscular Hemoglobin 33pg (25-35) Mean Corpuscular Hemoglobin Concent 32g/dL (31-37) Red Cell Distribution Width 13.6% (11.5-14.5) Platelet Count 175x10^3/uL (140-400) Neutrophils (%) (Auto) 76% (31-73) Lymphocytes (%) (Auto) 15% (24-48) Monocytes (%) (Auto) 8% (0-9) Eosinophils (%) (Auto) 1% (0-3) Basophils (%) (Auto) 1% (0-3) Neutrophils # (Auto) 3.8x10^3uL (1.8-7.7) Lymphocytes # (Auto) 0.8x10^3/uL (1.0-4.8) Monocytes # (Auto) 0.4x10^3/uL (0.0-1.1) Eosinophils # (Auto) 0.0x10^3/uL (0.0-0.7) Basophils # (Auto) 0.0x10^3/uL (0.0-0.2) Sodium Level 146mmol/L (136-145) Potassium Level 4.3mmol/L (3.5-5.1) Chloride Level 100mmol/L (98-107) Carbon Dioxide Level > 45mmol/L (21-32) Anion Gap (6-14) Blood Urea Nitrogen 27mg/dL (8-26) Creatinine 0.8mg/dL (0.7-1.3) Estimated GFR (Cockcroft-Gault) 91.9 Glucose Level 282mg/dL (70-99) Calcium Level 9.6mg/dL (8.5-10.1) Triglycerides Level 82mg/dL (0-150) Cholesterol Level 127mg/dL (0-200) LDL Cholesterol, Calculated 65mg/dL (0-100) VLDL Cholesterol, Calculated 16mg/dL (0-40) HDL Cholesterol 46mg/dL (40-60) Cholesterol/HDL Ratio 2.8 Laboratory Tests Test 07/24/16 12:09 07/24/16 14:10 07/24/16 17:07 07/24/16 20:21 Glucose (Fingerstick) 239mg/dL (70-99) 152mg/dL (70-99) 191mg/dL (70-99) Troponin I Quantitative 0.040ng/mL (0.000-0.055) Test 07/25/16 04:15 White Blood Count 5.0x10^3/uL (4.0-11.0) Red Blood Count 3.36x10^6/uL (4.30-5.70) Hemoglobin 10.9g/dL (13.0-17.5) Hematocrit 33.9% (39.0-53.0) Mean Corpuscular Volume 101fL (79-100) Mean Corpuscular Hemoglobin 33pg (25-35) Mean Corpuscular Hemoglobin Concent 32g/dL (31-37) Red Cell Distribution Width 13.6% (11.5-14.5) Platelet Count 175x10^3/uL (140-400) Neutrophils (%) (Auto) 76% (31-73) Lymphocytes (%) (Auto) 15% (24-48) Monocytes (%) (Auto) 8% (0-9) Eosinophils (%) (Auto) 1% (0-3) Basophils (%) (Auto) 1% (0-3) Neutrophils # (Auto) 3.8x10^3uL (1.8-7.7) Lymphocytes # (Auto) 0.8x10^3/uL (1.0-4.8) Monocytes # (Auto) 0.4x10^3/uL (0.0-1.1) Eosinophils # (Auto) 0.0x10^3/uL (0.0-0.7) Basophils # (Auto) 0.0x10^3/uL (0.0-0.2) Sodium Level 146mmol/L (136-145) Potassium Level 4.3mmol/L (3.5-5.1) Chloride Level 100mmol/L (98-107) Carbon Dioxide Level > 45mmol/L (21-32) Anion Gap (6-14) Blood Urea Nitrogen 27mg/dL (8-26) Creatinine 0.8mg/dL (0.7-1.3) Estimated GFR (Cockcroft-Gault) 91.9 Glucose Level 282mg/dL (70-99) Calcium Level 9.6mg/dL (8.5-10.1) Triglycerides Level 82mg/dL (0-150) Cholesterol Level 127mg/dL (0-200) LDL Cholesterol, Calculated 65mg/dL (0-100) VLDL Cholesterol, Calculated 16mg/dL (0-40) HDL Cholesterol 46mg/dL (40-60) Cholesterol/HDL Ratio 2.8 Medications Current Medications Ondansetron HCl (Zofran) 4 mg PRN Q8HRS PRN IV NAUSEA/VOMITING; Start 07/24/16 at 02:15; Stop 07/24/16 at 16:35; Status DC Morphine Sulfate 2 mg 2 mg PRN Q2HR PRN IV SEVERE PAIN; Start 07/24/16 at 02:15 ; Stop 07/25/16 at 02:14; Status DC Ceftriaxone Sodium (Rocephin 1gm Ivpb For Omni) 50 ml @ 100 mls/hr 1X ONCE IV Last administered on 07/24/16 04:08; Start 07/24/16 at 03:00; Stop 07/24/16 at 03:29; Status DC Insulin Aspart (Novolog) 0-5 UNITS TIDWMEALS SQ Last administered on 07/25/16 08:00; Start 07/24/16 at 12:00 Dextrose 12.5 gm PRN Q15MIN PRN IV SEE COMMENTS; Start 07/24/16 at 08:45 Insulin Aspart (Novolog) 17 units 1X ONCE SQ Last administered on 07/24/16 09 :20; Start 07/24/16 at 09:00; Stop 07/24/16 at 09:06; Status DC Potassium Chloride (Klor-Con) 40 meq BID PO Last administered on 07/24/16 20: 16; Start 07/24/16 at 10:15; Stop 07/24/16 at 23:00; Status DC Acetaminophen (Tylenol) 325 mg PRN Q6HRS PRN PO MILD PAIN / TEMP; Start at 11:30 Acetaminophen/ Hydrocodone Bitart (Lortab 5/325) 1 tab PRN Q6HRS PRN PO MODERATE TO SEVERE PAIN Last administered on 07/24/16 12:06; Start 07/24/16 at 11:30; Stop 07/24/16 at 16:36; Status DC Hydralazine HCl (Apresoline) 10 mg PRN Q4HRS PRN IVP ELEVATED BP, SEE COMMENTS ; Start 07/24/16 at 11:30 Ondansetron HCl (Zofran) 4 mg PRN Q8HRS PRN IV NAUSEA/VOMITING; Start 07/24/16 at 11:30 Albuterol Sulfate (Ventolin Neb Soln) 2.5 mg PRN Q4HRS PRN NEB SHORTNESS OF BREATH; Start 07/24/16 at 11:30; Stop 07/24/16 at 16:35; Status DC Aspirin (Ana M Aspirin) 325 mg DAILY PO Last administered on 07/25/16 08:41; Start 07/24/16 at 12:00 Atorvastatin Calcium (Lipitor) 40 mg QHS PO Last administered on 07/24/16 20: 16; Start 07/24/16 at 21:00 Clopidogrel Bisulfate (Plavix) 75 mg DAILY PO Last administered on 07/25/16 08 :41; Start 07/24/16 at 12:00 Docusate Sodium (Colace) 100 mg PRN BID PRN PO CONSTIPATION Last administered on 07/25/16 08:58; Start 07/24/16 at 11:30 Furosemide (Lasix) 40 mg BID92 PO Last administered on 07/25/16 09:00; Start 07/24/16 at 11:30 Acetaminophen/ Hydrocodone Bitart (Lortab 5/325) 1 tab PRN Q4HRS PRN PO PAIN Last administered on 07/25/16 09:59; Start 07/24/16 at 11:30 Insulin Detemir (Levemir) 10 units HS SQ Last administered on 07/24/16 20:27; Start 07/24/16 at 21:00 Albuterol Sulfate (Ventolin Neb Soln) 2.5 mg PRN Q4HRS PRN NEB SHORTNESS OF BREATH; Start 07/24/16 at 11:45 Metoprolol Tartrate (Lopressor) 25 mg DAILY PO Last administered on 07/25/16 09:00; Start 07/24/16 at 12:00 Pantoprazole Sodium (Protonix) 40 mg DAILYAC PO Last administered on 07/25/16 08:41; Start 07/24/16 at 11:30 Trazodone HCl (Desyrel) 100 mg QHS PO Last administered on 07/24/16 20:16; Start 07/24/16 at 21:00 Vitamin D (Vitamin D3) 2,000 unit DAILY PO Last administered on 07/25/16 08:41 ; Start 07/24/16 at 12:00 Insulin Aspart (Novolog) 12 units TIDAC SQ Last administered on 07/25/16 07:30 ; Start 07/24/16 at 16:30 Magnesium Hydroxide (Milk Of Magnesia) 2,400 mg PRN DAILY PRN PO CONSTIPATION; Start 07/24/16 at 11:45 Non-Formulary Medication 5 mg HS PO ; Start 07/24/16 at 21:00; Stop 07/24/16 at 21:00; Status DC Furosemide (Lasix) 40 mg 1X ONCE IVP Last administered on 07/24/16 12:45; Start 07/24/16 at 12:30; Stop 07/24/16 at 12:31; Status DC Potassium Chloride (Klor-Con) 20 meq 1X ONCE PO Last administered on 12:44; Start 07/24/16 at 12:45; Stop 07/24/16 at 12:46; Status DC Insulin Detemir (Levemir) 12 units 1X ONCE SQ ; Start 07/24/16 at 18:15; Stop 07/24/16 at 18:20; Status DC Insulin Aspart (Novolog) 12 units 1X ONCE SQ Last administered on 07/24/16 18 :10; Start 07/24/16 at 18:30; Stop 07/24/16 at 18:32; Status DC Heparin Sodium (Porcine) 5,000 unit Q8HRS SQ Last administered on 07/25/16 06: 11; Start 07/24/16 at 22:00 Active Scripts Active Reported Colace (Docusate Sodium) 100 Mg Capsule 1 Cap PO BID PRN Milk Of Magnesia (Magnesium Hydroxide) 2,400 Mg/10 Ml Oral.susp 2,400 Mg PO PRN Q24HRS PRN Melatonin 5 Mg Tablet 5 Mg PO HS Duoneb 0.5-3(2.5) Mg/3 Ml (Albuterol/Ipratropium) 3 Ml Ampul.neb 3 Ml NEB PRN Q4HRS PRN Atorvastatin Calcium 40 Mg Tablet 1 Tab PO DAILY Hydrocodone-Apap 5-325 (Hydrocodone Bit/Acetaminophen) 1 Each Tablet 1 Tab PO PRN Q4HRS PRN Clopidogrel (Clopidogrel Bisulfate) 75 Mg Tablet 1 Tab PO DAILY Furosemide 40 Mg Tablet 40 Mg PO BID Metoprolol Tartrate 25 Mg Tablet 1 Tab PO DAILY Vitamin D-3 (Cholecalciferol (Vitamin D3)) 2,000 Unit Tablet 2,000 Unit PO DAILY Humalog (Insulin Lispro) 100 Unit/1 Ml Cartridge 12 Unit SQ TIDAC Pantoprazole Sodium 40 Mg Tablet.dr 1 Tab PO DAILY Trazodone Hcl 50 Mg Tablet 100 Mg PO QHS Levemir Flexpen (Insulin Detemir) 100 Unit/1 Ml Insuln.pen 10 Unit SQ HS Aspirin 325 Mg Tablet 1 Tab PO DAILY Vitals/I & O Vital Sign - Last 24 Hours 07/24/16 07/24/16 07/24/16 07/24/16 12:06 12:08 13:06 15:03 Temp 97.9 97.9 Pulse 82 79 Resp B/P 134/68 112/46 Pulse Ox 98 97 95 O2 Delivery Nasal Cannula Nasal Cannula O2 Flow Rate 4.0 4.0 4.0 07/24/16 07/24/16 07/24/16 07/24/16 16:02 19:20 19:45 23:30 Temp 97.5 98.3 97.5 98.3 Pulse 98 98 Resp 18 B/P 141/58 125/68 Pulse Ox 97 91 96 O2 Delivery Nasal Cannula Nasal Cannula Nasal Cannula O2 Flow Rate 4.0 4.0 4.0 07/25/16 07/25/16 07/25/16 07/25/16 03:35 07:38 08:10 09:00 Temp 97.8 97.9 97.8 97.9 Pulse 97 101 112 Resp 20 B/P 148/61 136/72 136/72 Pulse Ox 95 94 O2 Delivery Room Air Nasal Cannula Nasal Cannula O2 Flow Rate 4.0 4.0 07/25/16 07/25/16 09:59 10:59 Resp 18 18 Pulse Ox 95 95 O2 Delivery Nasal Cannula Nasal Cannula O2 Flow Rate 4.0 4.0 Intake and Output 07/24/16 07/24/16 07/25/16 15:00 23:00 07:00 Intake Total 520 ml Output Total 900 ml 600 ml 525 ml Balance -900 ml -600 ml -5 ml ZACH PETERSON MD Jul 25, 2016 11:41
--- NOTE | 2016-07-25 11:55 | PDOC ---
JENARO HASSAN THREAD INSPECTOR 07/25/16 1155: CARDIO Progress Notes Date and Time Date of Service 07/25/16 Time of Evaluation 1155 Subjective Subjective: No Chest Pain, No shortness of breath, No Palpitations, No Dizziness Comments: walked with PT Vitals Vitals Vital Signs Date Time Temp Pulse Resp B/P Pulse Ox O2 Delivery O2 Flow Rate FiO2 07/25/16 11:41 97.1 72 20 122/59 95 Nasal Cannula 4.0 97.1 Weight Weight [ ] Input and Output Intake and Output Intake and Output 07/25/16 07:00 Intake Total 520 ml Output Total 2025 ml Balance -1505 ml Intake Oral 520 ml Output Urine Total 2025 ml # Voids 1 # Bowel Movements 1 Laboratory Labs Laboratory Tests Test 07/24/16 12:09 07/24/16 14:10 07/24/16 17:07 07/24/16 20:21 Glucose (Fingerstick) 239mg/dL (70-99) 152mg/dL (70-99) 191mg/dL (70-99) Troponin I Quantitative 0.040ng/mL (0.000-0.055) Test 07/25/16 04:15 07/25/16 11:43 White Blood Count 5.0x10^3/uL (4.0-11.0) Red Blood Count 3.36x10^6/uL (4.30-5.70) Hemoglobin 10.9g/dL (13.0-17.5) Hematocrit 33.9% (39.0-53.0) Mean Corpuscular Volume 101fL (79-100) Mean Corpuscular Hemoglobin 33pg (25-35) Mean Corpuscular Hemoglobin Concent 32g/dL (31-37) Red Cell Distribution Width 13.6% (11.5-14.5) Platelet Count 175x10^3/uL (140-400) Neutrophils (%) (Auto) 76% (31-73) Lymphocytes (%) (Auto) 15% (24-48) Monocytes (%) (Auto) 8% (0-9) Eosinophils (%) (Auto) 1% (0-3) Basophils (%) (Auto) 1% (0-3) Neutrophils # (Auto) 3.8x10^3uL (1.8-7.7) Lymphocytes # (Auto) 0.8x10^3/uL (1.0-4.8) Monocytes # (Auto) 0.4x10^3/uL (0.0-1.1) Eosinophils # (Auto) 0.0x10^3/uL (0.0-0.7) Basophils # (Auto) 0.0x10^3/uL (0.0-0.2) Sodium Level 146mmol/L (136-145) Potassium Level 4.3mmol/L (3.5-5.1) Chloride Level 100mmol/L (98-107) Carbon Dioxide Level > 45mmol/L (21-32) Anion Gap (6-14) Blood Urea Nitrogen 27mg/dL (8-26) Creatinine 0.8mg/dL (0.7-1.3) Estimated GFR (Cockcroft-Gault) 91.9 Glucose Level 282mg/dL (70-99) Calcium Level 9.6mg/dL (8.5-10.1) Triglycerides Level 82mg/dL (0-150) Cholesterol Level 127mg/dL (0-200) LDL Cholesterol, Calculated 65mg/dL (0-100) VLDL Cholesterol, Calculated 16mg/dL (0-40) HDL Cholesterol 46mg/dL (40-60) Cholesterol/HDL Ratio 2.8 Glucose (Fingerstick) 177mg/dL (70-99) Physical Exam HEENT: Neck Supple W Full Motion Chest: Symmetric LUNGS: Clear to Auscultation Heart: irregularly irregular, other (tele: atrial fib; PPM left pectoral region ) Abdomen: Soft N/T Extremities: No Edema Neurology: alert, follow commands Assessment Assessment 1. ? syncope vs mechanical fall presumed mechanical no evidence of dysrhythmias on PPM interrogation other than known atrial fib orthostatic BP readings have not been completed echo completed with results pending 2. atrial fibrillation, permanent rate controlled with BB - ? metoprolol tartrate once daily - suspect wrong version and will try to confirm if on succinate which would be once daily dosing not on OAC - ? due to fall risk continue DAPT for now continue to await records [facility] 3. CHF, ? acute vs chronic NT-proBNP not consistent with acute when age adjusted however, bilateral pleural effusions and ? of crackles on physical exam echo with results pending breath sounds improved overnight after diuretics 4. CAD with previous CABG and subsequent PCI/stents details unknown records requested but still pending continue medical management 5. ? COPD chronic home O2 use hypoxic after fall cough productive yellow sputm - influenza negative defer to PULM 6. HTN control with meds 7. HLD LDLs = 67 on statin therapy 8. GERD continue home PPI 9. history of bladder and prostate cancer ileal conduit Likely home tomorrow; increase ambulation today; check orthostatic BP measurements DELIO CRAWFORD MD 07/25/16 1606: CARDIO Progress Notes Assessment Assessment Patient seen and examined. Agree with TAX ATTORNEY's assessment and plan. Patient most probably had a mechanical fall. Acute on chronic diastolic heart failure better compensated. CAD status stable. 2-D echo showed normal LV systolic function. Permanent atrial fibrillation rate controlled. Continue current medical regimen. JENARO HASSAN APRN Jul 25, 2016 11:55 DELIO CRAFWORD MD Jul 25, 2016 16:06
[2016-07-25] MEDS: CIPROFLOXACIN HCL 250 MG TABLET PO SCH ×2 (13:09→21:00)
--- NOTE | 2016-07-25 13:09 | CARD ---
APPROVED REPORT EXAM: Two-dimensional and M-mode echocardiogram with Doppler and color Doppler. Other Information HR: 82bpm Rhythm : Atrial Fibrillation INDICATION Syncope Surgery/Intervention CABD DIMENSIONS RVDd3.0 (2.9-3.5cm)Left Atrium(2D)4.1 (1.6-4.0cm) IVSd0.9 (0.7-1.1cm)Aortic Root(2D)3.7 (2.0-3.7cm) LVDd4.1 (3.9-5.9cm)LVOT Diameter2.4 (1.8-2.4cm) PWd0.9 (0.7-1.1cm)LVDs2.8 (2.5-4.0cm) FS (%) 30.7 %SV43.3 ml LVEF(%)58.8 (>50%) Aortic Valve AoV Peak Aric.121.0cm/sAoV VTI23.0cm AO Peak GR.5.9mmHgLVOT VTI 15.68cm AO Mean GR.4mmHg Mitral Valve MV E Imtutdxn43.0cm/sMV E Peak Gr.4mmHg MV DECEL [id number] E Mean Gr.2mmHg TDI Medial E' P. V9.99cm/sE/Medial E'8.5 Tricuspid Valve RAP [id number] LEFT VENTRICLE The left ventricle is normal size. There is normal left ventricular wall thickness. The left ventricu lar systolic function is normal and the ejection fraction is within normal range. The Ejection Fracti on is 60-65%. The septal motion consistent with pacing. Otherwise grossly normal wall motion. Left ve ntricular diastolic function was not assessed due to atrial fibrillation. There is no ventricular sep ashok defect visualized. RIGHT VENTRICLE The right ventricle is mildly dilated. There is normal right ventricular wall thickness. The right ve ntricular systolic function is normal. There is a pacemaker lead in the right ventricle. ATRIA The left atrium size is normal. The right atrium size is normal. The interatrial septum is intact wit h no evidence for an atrial septal defect or patent foramen ovale as noted on 2-D or Doppler imaging. AORTIC VALVE The aortic valve is mildly sclerotic. Doppler and Color Flow revealed no significant aortic regurgita tion. There is no significant aortic valvular stenosis. MITRAL VALVE Mitral annular calcification is mild. There is no evidence of mitral valve prolapse. There is no mitr al valve stenosis. Doppler and Color Flow revealed mild mitral regurgitation. TRICUSPID VALVE The tricuspid valve is normal in structure and function. Doppler and Color Flow revealed no tricuspid valve regurgitation noted. There is no tricuspid valve stenosis. PULMONIC VALVE The pulmonary valve is normal in structure and function. Doppler and Color Flow revealed mild pulmoni c valvular regurgitation. There is no pulmonic valvular stenosis. GREAT VESSELS The aortic root is normal in size. The ascending aorta is normal in size. The pulmonary artery is nor mal. The IVC was not visualized. PERICARDIAL EFFUSION There is large fibrinous left pleural effusion. There is no evidence of significant pericardial effus ion. Critical Notification Critical Value: No <Conclusion> The left ventricular systolic function is normal and the ejection fraction is within normal range. Th e Ejection Fraction is 60-65%. The septal motion consistent with pacing. Otherwise grossly normal wall motion. There is a pacemaker lead in the right ventricle. There is large fibrinous left pleural effusion.
[2016-07-25] MEDS ORDERED: IV NORMAL SALINE 500ML BAG 500 ML IV ONE (14:00)
--- NOTE | 2016-07-25 14:43 | PDOC ---
PULMONARY PROGRESS NOTES Subjective feels better Vitals Vital Signs Date Time Temp Pulse Resp B/P Pulse Ox O2 Delivery O2 Flow Rate FiO2 07/25/16 13:50 76 117/62 07/25/16 11:41 97.1 20 95 Nasal Cannula 4.0 97.1 General: Alert, No acute distress Lungs: Other (decrease bs) Cardiovascular: S1 Abdomen: Soft Neuro Exam: Alert Extremities: Other (1+edema) Labs Laboratory Tests Test 07/23/16 23:40 07/24/16 00:45 07/24/16 07:58 07/24/16 08:20 White Blood Count 5.8x10^3/uL (4.0-11.0) Red Blood Count 3.76x10^6/uL (4.30-5.70) Hemoglobin 12.2g/dL (13.0-17.5) Hematocrit 37.7% (39.0-53.0) Mean Corpuscular Volume 100fL (79-100) Mean Corpuscular Hemoglobin 32pg (25-35) Mean Corpuscular Hemoglobin Concent 32g/dL (31-37) Red Cell Distribution Width 13.8% (11.5-14.5) Platelet Count 191x10^3/uL (140-400) Neutrophils (%) (Auto) 77% (31-73) Lymphocytes (%) (Auto) 13% (24-48) Monocytes (%) (Auto) 8% (0-9) Eosinophils (%) (Auto) 1% (0-3) Basophils (%) (Auto) 1% (0-3) Neutrophils # (Auto) 4.5x10^3uL (1.8-7.7) Lymphocytes # (Auto) 0.7x10^3/uL (1.0-4.8) Monocytes # (Auto) 0.5x10^3/uL (0.0-1.1) Eosinophils # (Auto) 0.1x10^3/uL (0.0-0.7) Basophils # (Auto) 0.1x10^3/uL (0.0-0.2) Sodium Level 148mmol/L (136-145) Potassium Level 3.1mmol/L (3.5-5.1) Chloride Level 98mmol/L (98-107) Carbon Dioxide Level > 45mmol/L (21-32) Anion Gap (6-14) Blood Urea Nitrogen 20mg/dL (8-26) Creatinine 0.7mg/dL (0.7-1.3) Estimated GFR (Cockcroft-Gault) 107.2 Glucose Level 145mg/dL (70-99) Calcium Level 9.2mg/dL (8.5-10.1) Total Bilirubin 0.6mg/dL (0.2-1.0) Direct Bilirubin 0.1mg/dL (0.0-0.2) Aspartate Amino Transf (AST/SGOT) 16U/L (15-37) Alanine Aminotransferase (ALT/SGPT) 16U/L (16-63) Alkaline Phosphatase 111U/L (46-116) Troponin I Quantitative 0.030ng/mL (0.000-0.055) 0.039ng/mL (0.000-0.055) WB-Sxm-P-Type Natriuretic Peptide 1122pg/mL (0-449) Total Protein 6.9g/dL (6.4-8.2) Albumin 2.9g/dL (3.4-5.0) Lipase 154U/L (73-393) Urine Collection Type Unknown Urine Color Yellow Urine Clarity Cloudy Urine pH 7.0 Urine Specific [place] 1.010 Urine Protein Negativemg/dL (NEG-TRACE) Urine Glucose (UA) Negativemg/dL (NEG) Urine Ketones (Stick) Negativemg/dL (NEG) Urine Blood Negative (NEG) Urine Nitrite Positive (NEG) Urine Bilirubin Negative (NEG) Urine Urobilinogen Dipstick 1.0mg/dL (0.2 mg/dL) Urine Leukocyte Esterase Small (NEG) Urine RBC 0/HPF (0-2) Urine WBC 5-10/HPF (0-4) Urine Squamous Epithelial Cells Few/LPF Urine Amorphous Sediment Present/HPF Urine Bacteria Many/HPF (0-FEW) Urine Hyaline Casts Few/HPF Urine Mucus Mod/LPF Urine Yeast Present/HPF Glucose (Fingerstick) 340mg/dL (70-99) Lactic Acid Level 0.9mmol/L (0.4-2.0) Magnesium Level 2.0mg/dL (1.8-2.4) Thyroid Stimulating Hormone (TSH) 0.876uIU/mL (0.358-3.74) Test 07/24/16 10:00 07/24/16 12:09 07/24/16 14:10 07/24/16 17:07 Influenza Type A Antigen Negative (NEGATIVE) Influenza Type B Antigen Negative (NEGATIVE) Glucose (Fingerstick) 239mg/dL (70-99) 152mg/dL (70-99) Troponin I Quantitative 0.040ng/mL (0.000-0.055) Test 07/24/16 20:21 07/25/16 04:15 07/25/16 11:43 Glucose (Fingerstick) 191mg/dL (70-99) 177mg/dL (70-99) White Blood Count 5.0x10^3/uL (4.0-11.0) Red Blood Count 3.36x10^6/uL (4.30-5.70) Hemoglobin 10.9g/dL (13.0-17.5) Hematocrit 33.9% (39.0-53.0) Mean Corpuscular Volume 101fL (79-100) Mean Corpuscular Hemoglobin 33pg (25-35) Mean Corpuscular Hemoglobin Concent 32g/dL (31-37) Red Cell Distribution Width 13.6% (11.5-14.5) Platelet Count 175x10^3/uL (140-400) Neutrophils (%) (Auto) 76% (31-73) Lymphocytes (%) (Auto) 15% (24-48) Monocytes (%) (Auto) 8% (0-9) Eosinophils (%) (Auto) 1% (0-3) Basophils (%) (Auto) 1% (0-3) Neutrophils # (Auto) 3.8x10^3uL (1.8-7.7) Lymphocytes # (Auto) 0.8x10^3/uL (1.0-4.8) Monocytes # (Auto) 0.4x10^3/uL (0.0-1.1) Eosinophils # (Auto) 0.0x10^3/uL (0.0-0.7) Basophils # (Auto) 0.0x10^3/uL (0.0-0.2) Sodium Level 146mmol/L (136-145) Potassium Level 4.3mmol/L (3.5-5.1) Chloride Level 100mmol/L (98-107) Carbon Dioxide Level > 45mmol/L (21-32) Anion Gap (6-14) Blood Urea Nitrogen 27mg/dL (8-26) Creatinine 0.8mg/dL (0.7-1.3) Estimated GFR (Cockcroft-Gault) 91.9 Glucose Level 282mg/dL (70-99) Calcium Level 9.6mg/dL (8.5-10.1) Triglycerides Level 82mg/dL (0-150) Cholesterol Level 127mg/dL (0-200) LDL Cholesterol, Calculated 65mg/dL (0-100) VLDL Cholesterol, Calculated 16mg/dL (0-40) HDL Cholesterol 46mg/dL (40-60) Cholesterol/HDL Ratio 2.8 Laboratory Tests Test 07/24/16 17:07 07/24/16 20:21 07/25/16 04:15 07/25/16 11:43 Glucose (Fingerstick) 152mg/dL (70-99) 191mg/dL (70-99) 177mg/dL (70-99) White Blood Count 5.0x10^3/uL (4.0-11.0) Red Blood Count 3.36x10^6/uL (4.30-5.70) Hemoglobin 10.9g/dL (13.0-17.5) Hematocrit 33.9% (39.0-53.0) Mean Corpuscular Volume 101fL (79-100) Mean Corpuscular Hemoglobin 33pg (25-35) Mean Corpuscular Hemoglobin Concent 32g/dL (31-37) Red Cell Distribution Width 13.6% (11.5-14.5) Platelet Count 175x10^3/uL (140-400) Neutrophils (%) (Auto) 76% (31-73) Lymphocytes (%) (Auto) 15% (24-48) Monocytes (%) (Auto) 8% (0-9) Eosinophils (%) (Auto) 1% (0-3) Basophils (%) (Auto) 1% (0-3) Neutrophils # (Auto) 3.8x10^3uL (1.8-7.7) Lymphocytes # (Auto) 0.8x10^3/uL (1.0-4.8) Monocytes # (Auto) 0.4x10^3/uL (0.0-1.1) Eosinophils # (Auto) 0.0x10^3/uL (0.0-0.7) Basophils # (Auto) 0.0x10^3/uL (0.0-0.2) Sodium Level 146mmol/L (136-145) Potassium Level 4.3mmol/L (3.5-5.1) Chloride Level 100mmol/L (98-107) Carbon Dioxide Level > 45mmol/L (21-32) Anion Gap (6-14) Blood Urea Nitrogen 27mg/dL (8-26) Creatinine 0.8mg/dL (0.7-1.3) Estimated GFR (Cockcroft-Gault) 91.9 Glucose Level 282mg/dL (70-99) Calcium Level 9.6mg/dL (8.5-10.1) Triglycerides Level 82mg/dL (0-150) Cholesterol Level 127mg/dL (0-200) LDL Cholesterol, Calculated 65mg/dL (0-100) VLDL Cholesterol, Calculated 16mg/dL (0-40) HDL Cholesterol 46mg/dL (40-60) Cholesterol/HDL Ratio 2.8 Medications Active Scripts Medications Dose Route/Sig Days Date Category Colace (Docusate Sodium) 100 Mg Capsule 1 Cap PO BID PRN 07/24/16 Reported Milk Of Magnesia (Magnesium Hydroxide) 2,400 Mg/10 Ml Oral.susp 2,400 Mg PO PRN Q24HRS PRN 07/24/16 Reported Melatonin 5 Mg Tablet 5 Mg PO HS 07/24/16 Reported Duoneb 0.5-3(2.5) Mg/3 Ml (Albuterol/Ipratropium) 3 Ml Ampul.neb 3 Ml NEB PRN Q4HRS PRN 07/24/16 Reported Atorvastatin Calcium 40 Mg Tablet 1 Tab PO DAILY 07/24/16 Reported Hydrocodone-Apap 5-325 (Hydrocodone Bit/Acetaminophen) 1 Each Tablet 1 Tab PO PRN Q4HRS PRN 07/24/16 Reported Clopidogrel (Clopidogrel Bisulfate) 75 Mg Tablet 1 Tab PO DAILY 07/24/16 Reported Furosemide 40 Mg Tablet 40 Mg PO BID 07/24/16 Reported Metoprolol Tartrate 25 Mg Tablet 1 Tab PO DAILY 07/24/16 Reported Vitamin D-3 (Cholecalciferol (Vitamin D3)) 2,000 Unit Tablet 2,000 Unit PO DAILY 07/24/16 Reported Humalog (Insulin Lispro) 100 Unit/1 Ml Cartridge 12 Unit SQ TIDAC 07/24/16 Reported Pantoprazole Sodium 40 Mg Tablet.dr 1 Tab PO DAILY 07/24/16 Reported Trazodone Hcl 50 Mg Tablet 100 Mg PO QHS 05/11/14 Reported Levemir Flexpen (Insulin Detemir) 100 Unit/1 Ml Insuln.pen 10 Unit SQ HS 05/11/14 Reported Aspirin 325 Mg Tablet 1 Tab PO DAILY 05/11/14 Reported Impression . 1. Acute hypoxic respiratory failure secondary to congestive heart failure. 2. Abnormal chest x-ray with bilateral interstitial infiltrates, more on the left than on the right and bilateral pleural effusion and more on the left than on the right. We will see how he responds to diuresis and if not, then we will consider thoracentesis on the left side. 3. No significant history of tobacco use. 4. History of prior left-sided thoracentesis in February, it was not a hemothorax. 5. Syncopal episode, present on admission. Cardiology is following. Plan . 1. Would recommend diuresis. 2. Replace potassium.as needed 3. Follow chest x-ray post diuresis in am 4. If no improvement, then we will consider IR consult for L thoracentesis. 5. Follow cardiology recommendation. KEMI CHISHOLM MD Jul 25, 2016 14:43
[2016-07-25] MEDS ORDERED: FUROSEMIDE 40 MG/4 ML VIAL IVP ONE (14:45)
[2016-07-25] MEDS: INSULIN DETEMIR 300 UNITS/3 ML INSULN.PEN. SQ SCH (21:00)
[2016-07-25] MEDS: ATORVASTATIN CALCIUM 40 MG TABLET. PO SCH (22:40)
[2016-07-25] MEDS: traZODone 50 MG TABLET. PO SCH (22:40)
[2016-07-26] VITALS (19 sets, daily range): BP systolic 93–146; BP diastolic 47–73
[2016-07-26] MEDS: HEPARIN PF for SUB-Q USE 5,000 UNIT/0.5 ML VIAL. SQ SCH ×3 (04:48→23:07)
[2016-07-26] MEDS: INSULIN ASPART 300 UNITS/3 ML INSULN.PEN SQ SCH ×6 (07:30→18:20)
[2016-07-26] MEDS: ASPIRIN 325 MG TABLET PO SCH (09:00)
[2016-07-26] MEDS: CLOPIDOGREL BISULFATE 75 MG TABLET PO SCH (09:00)
[2016-07-26] MEDS: FUROSEMIDE 40 MG TABLET PO SCH ×2 (09:00→14:00)
--- NOTE | 2016-07-26 09:24 | PDOC ---
PULMONARY PROGRESS NOTES Subjective weak, has sob, no cough, pain Vitals Vital Signs Date Time Temp Pulse Resp B/P Pulse Ox O2 Delivery O2 Flow Rate FiO2 07/26/16 07:30 97.5 96 20 121/55 93 Nasal Cannula 4.0 97.5 Comments ros as above other sys otherwise neg General: Alert, No acute distress HEENT: Other (nose throat clear, nc at perrl) Lungs: Crackles, Other (decrease bs) Cardiovascular: S1 Abdomen: Soft, Non-tender, Other (no mass) Neuro Exam: Alert Extremities: Other (1+edema) Skin: Warm Labs Laboratory Tests Test 07/24/16 10:00 07/24/16 12:09 07/24/16 14:10 07/24/16 17:07 Influenza Type A Antigen Negative (NEGATIVE) Influenza Type B Antigen Negative (NEGATIVE) Glucose (Fingerstick) 239mg/dL (70-99) 152mg/dL (70-99) Troponin I Quantitative 0.040ng/mL (0.000-0.055) Test 07/24/16 20:21 07/25/16 04:15 07/25/16 11:43 07/25/16 17:01 Glucose (Fingerstick) 191mg/dL (70-99) 177mg/dL (70-99) 230mg/dL (70-99) White Blood Count 5.0x10^3/uL (4.0-11.0) Red Blood Count 3.36x10^6/uL (4.30-5.70) Hemoglobin 10.9g/dL (13.0-17.5) Hematocrit 33.9% (39.0-53.0) Mean Corpuscular Volume 101fL (79-100) Mean Corpuscular Hemoglobin 33pg (25-35) Mean Corpuscular Hemoglobin Concent 32g/dL (31-37) Red Cell Distribution Width 13.6% (11.5-14.5) Platelet Count 175x10^3/uL (140-400) Neutrophils (%) (Auto) 76% (31-73) Lymphocytes (%) (Auto) 15% (24-48) Monocytes (%) (Auto) 8% (0-9) Eosinophils (%) (Auto) 1% (0-3) Basophils (%) (Auto) 1% (0-3) Neutrophils # (Auto) 3.8x10^3uL (1.8-7.7) Lymphocytes # (Auto) 0.8x10^3/uL (1.0-4.8) Monocytes # (Auto) 0.4x10^3/uL (0.0-1.1) Eosinophils # (Auto) 0.0x10^3/uL (0.0-0.7) Basophils # (Auto) 0.0x10^3/uL (0.0-0.2) Sodium Level 146mmol/L (136-145) Potassium Level 4.3mmol/L (3.5-5.1) Chloride Level 100mmol/L (98-107) Carbon Dioxide Level > 45mmol/L (21-32) Anion Gap (6-14) Blood Urea Nitrogen 27mg/dL (8-26) Creatinine 0.8mg/dL (0.7-1.3) Estimated GFR (Cockcroft-Gault) 91.9 Glucose Level 282mg/dL (70-99) Calcium Level 9.6mg/dL (8.5-10.1) Triglycerides Level 82mg/dL (0-150) Cholesterol Level 127mg/dL (0-200) LDL Cholesterol, Calculated 65mg/dL (0-100) VLDL Cholesterol, Calculated 16mg/dL (0-40) HDL Cholesterol 46mg/dL (40-60) Cholesterol/HDL Ratio 2.8 Test 07/25/16 20:28 07/26/16 08:06 Glucose (Fingerstick) 249mg/dL (70-99) 199mg/dL (70-99) Laboratory Tests Test 07/25/16 11:43 07/25/16 17:01 07/25/16 20:28 07/26/16 08:06 Glucose (Fingerstick) 177mg/dL (70-99) 230mg/dL (70-99) 249mg/dL (70-99) 199mg/dL (70-99) Medications Active Scripts Medications Dose Route/Sig Days Date Category Colace (Docusate Sodium) 100 Mg Capsule 1 Cap PO BID PRN 07/24/16 Reported Milk Of Magnesia (Magnesium Hydroxide) 2,400 Mg/10 Ml Oral.susp 2,400 Mg PO PRN Q24HRS PRN 07/24/16 Reported Melatonin 5 Mg Tablet 5 Mg PO HS 07/24/16 Reported Duoneb 0.5-3(2.5) Mg/3 Ml (Albuterol/Ipratropium) 3 Ml Ampul.neb 3 Ml NEB PRN Q4HRS PRN 07/24/16 Reported Atorvastatin Calcium 40 Mg Tablet 1 Tab PO DAILY 07/24/16 Reported Hydrocodone-Apap 5-325 (Hydrocodone Bit/Acetaminophen) 1 Each Tablet 1 Tab PO PRN Q4HRS PRN 07/24/16 Reported Clopidogrel (Clopidogrel Bisulfate) 75 Mg Tablet 1 Tab PO DAILY 07/24/16 Reported Furosemide 40 Mg Tablet 40 Mg PO BID 07/24/16 Reported Metoprolol Tartrate 25 Mg Tablet 1 Tab PO DAILY 07/24/16 Reported Vitamin D-3 (Cholecalciferol (Vitamin D3)) 2,000 Unit Tablet 2,000 Unit PO DAILY 07/24/16 Reported Humalog (Insulin Lispro) 100 Unit/1 Ml Cartridge 12 Unit SQ TIDAC 07/24/16 Reported Pantoprazole Sodium 40 Mg Tablet.dr 1 Tab PO DAILY 07/24/16 Reported Trazodone Hcl 50 Mg Tablet 100 Mg PO QHS 05/11/14 Reported Levemir Flexpen (Insulin Detemir) 100 Unit/1 Ml Insuln.pen 10 Unit SQ HS 05/11/14 Reported Aspirin 325 Mg Tablet 1 Tab PO DAILY 05/11/14 Reported Comments cxr reviewed, increased vm, l mod effusion, Impression . 1. Acute hypoxic respiratory failure secondary to congestive heart failure. 2. Abnormal chest x-ray with bilateral interstitial infiltrates, more on the left than on the right and bilateral pleural effusion and more on the left than on the right. not responding well to diuresis thoracentesis on the left side, discussed w pt and his , agreed to proceed. 3. No significant history of tobacco use. 4. History of prior left-sided thoracentesis in February, it was not a hemothorax. 5. Syncopal episode, present on admission. Cardiology is following. Plan . 1. cont diuresis. 2. Replace potassium.as needed 3. thoracentesis today 4. o2 titration. 5. Follow cardiology recommendation. 6. pt ot discussed w rn, pt and his AINSLEY HESS MD Jul 26, 2016 09:24
--- NOTE | 2016-07-26 10:00 | RAD ---
EXAM: Chest, single view. HISTORY: Shortness of breath. COMPARISON: 07/25/2016. FINDINGS: There are stable small right and moderate left pleural effusions with diffuse lower lobe predominant left lung infiltrate or atelectasis. The heart is normal in size for portable technique. 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 There is a left cardiac pacemaker with leads in expected position. There is no pneumothorax. IMPRESSION: 1. Stable small right and moderate left pleural effusions with diffuse lower lobe predominant left lung infiltrate or atelectasis. 2. Stable postoperative changes.
--- NOTE | 2016-07-26 10:12 | PDOC ---
CARDIO Progress Notes Date and Time Date of Service 07/26/2016 Time of Evaluation 1011 Subjective Subjective: No Chest Pain, No shortness of breath, No Palpitations, No Dizziness Vitals Vitals Vital Signs Date Time Temp Pulse Resp B/P Pulse Ox O2 Delivery O2 Flow Rate FiO2 07/26/16 07:30 97.5 96 20 121/55 93 Nasal Cannula 4.0 97.5 Weight Weight [ ] Input and Output Intake and Output Intake and Output 07/26/16 07:00 Intake Total 650 ml Output Total 1500 ml Balance -850 ml Intake Oral 400 ml IV Total 250 ml Output Urine Total 1500 ml # Bowel Movements 1 Laboratory Labs Laboratory Tests Test 07/25/16 11:43 07/25/16 17:01 07/25/16 20:28 07/26/16 08:06 Glucose (Fingerstick) 177mg/dL (70-99) 230mg/dL (70-99) 249mg/dL (70-99) 199mg/dL (70-99) Microbiology Micro Microbiology 07/24/16 Urine Culture - Preliminary, Resulted 07/24/16 Urine Culture Result 1 (TAJ) - Preliminary, Resulted Physical Exam HEENT: Neck Supple W Full Motion Chest: Symmetric LUNGS: Clear to Auscultation Heart: S1S2, no murmurs, irregularly irregular, other (tele: atrial fib; PPM left pectoral region) Abdomen: Soft N/T Extremities: No Edema Neurology: alert, follow commands Assessment Assessment 1. ? syncope vs mechanical fall suspect orthostasis as 61 mm drop from lying to standing - ? related to trazodone - known to cause orthostasis - compounded with beta-pari usage no evidence of dysrhythmias on PPM interrogation other than known atrial fib echo completed with preserved LV function and large fibrinous left pleural effusion 2. atrial fibrillation, permanent rate controlled with BB - confirmed BID dosing of metoprolol tartrate not on OAC - ? due to fall risk continue DAPT for now no documentation of 4 stents in records from [facility] 3. CHF, acute on chronic diastolic bilateral pleural effusions and large left pleural effusion seen on formerly [facility], [facility] unable to aggressively diurese due to orthostasis 4. CAD with previous CABG and subsequent PCI/stents no evidence of 4 stents in [facility] records; PTCA 2003 OK to be off ASA and Plavix with thoracentesis pending continue medical management 5. ? COPD chronic home O2 use hypoxic after fall cough productive yellow sputm - influenza negative defer to PULM 6. HTN control with meds 7. HLD LDLs = 67 on statin therapy 8. GERD continue home PPI 9. history of bladder and prostate cancer ileal conduit 10. orthostatic hypotension likely etiology of fall will decrease BB dose to 12.5 mg BID add compression hose; may need midodrine JENARO HASSAN LAUNDRY HELPER Jul 26, 2016 10:12
[2016-07-26] MEDS: METOPROLOL TART IMMED RELEASE 25 MG TABLET PO SCH ×2 (11:18→21:07)
[2016-07-26 11:41] LABS: INR 1.1 (0.8-1.1); PROTHROMBIN TIME PATIENT 13.6 SEC (11.7-14.0)
--- NOTE | 2016-07-26 11:41 | PDOC ---
PROGRESS NOTES Chief Complaint Chief Complaint 1. cc: fall 1. Mechanical fall.no syncope 2. Atrial fibrillation, currently rate controlled. 3. Coronary artery disease and CABG history. 4. Chronic obstructive pulmonary disease. 5. Hypertension. 6. Hypoxic respiratory failure, Pl effusions 7. Hyperlipidemia. 8. Gastroesophageal reflux disease. 9. UTI- Ecoli 10. Physical debility Plan Echo LVEF 60% IV Rocephin diuresis per cardiology. Thoracentesis today. PT/OT Labs reviwed, Monitor electrolytes. SSI supplemental oxygen. History of Present Illness History of Present Illness physically weak no fever no chills. no acute events. Vitals Vitals Vital Signs Date Time Temp Pulse Resp B/P Pulse Ox O2 Delivery O2 Flow Rate FiO2 07/26/16 11:31 97.1 81 20 146/67 93 Nasal Cannula 4.0 97.1 Physical Exam General: Alert, Oriented X3, Cooperative, No acute distress Heart: Normal S1, Normal S2, Other (IRRR; tele: atrial fib; bilateral carotid bruits) Lungs: Crackles, Other (decrease bs) Abdomen: Normal bowel sounds, Soft Extremities: No edema, Normal pulses Skin: No rashes Labs LABS Laboratory Tests Test 07/25/16 11:43 07/25/16 17:01 07/25/16 20:28 07/26/16 08:06 Glucose (Fingerstick) 177mg/dL (70-99) 230mg/dL (70-99) 249mg/dL (70-99) 199mg/dL (70-99) Assessment and Plan Assessmemt and Plan Problems Medical Problems: (1) Difficulty breathing Status: Acute (2) Elevated brain natriuretic peptide (BNP) level Status: Acute (3) Fall Status: Acute (4) Hypoxia Status: Acute (5) Pneumonia Status: Acute (6) Urinary tract infection Status: Acute Problems: Comment Review of Relevant I have reviewed the following items ede (where applicable) has been applied. Labs Laboratory Tests Test 07/24/16 12:09 07/24/16 14:10 07/24/16 17:07 07/24/16 20:21 Glucose (Fingerstick) 239mg/dL (70-99) 152mg/dL (70-99) 191mg/dL (70-99) Troponin I Quantitative 0.040ng/mL (0.000-0.055) Test 07/25/16 04:15 1/12/17 11:43 07/25/16 17:01 07/25/16 20:28 White Blood Count 5.0x10^3/uL (4.0-11.0) Red Blood Count 3.36x10^6/uL (4.30-5.70) Hemoglobin 10.9g/dL (13.0-17.5) Hematocrit 33.9% (39.0-53.0) Mean Corpuscular Volume 101fL (79-100) Mean Corpuscular Hemoglobin 33pg (25-35) Mean Corpuscular Hemoglobin Concent 32g/dL (31-37) Red Cell Distribution Width 13.6% (11.5-14.5) Platelet Count 175x10^3/uL (140-400) Neutrophils (%) (Auto) 76% (31-73) Lymphocytes (%) (Auto) 15% (24-48) Monocytes (%) (Auto) 8% (0-9) Eosinophils (%) (Auto) 1% (0-3) Basophils (%) (Auto) 1% (0-3) Neutrophils # (Auto) 3.8x10^3uL (1.8-7.7) Lymphocytes # (Auto) 0.8x10^3/uL (1.0-4.8) Monocytes # (Auto) 0.4x10^3/uL (0.0-1.1) Eosinophils # (Auto) 0.0x10^3/uL (0.0-0.7) Basophils # (Auto) 0.0x10^3/uL (0.0-0.2) Sodium Level 146mmol/L (136-145) Potassium Level 4.3mmol/L (3.5-5.1) Chloride Level 100mmol/L (98-107) Carbon Dioxide Level > 45mmol/L (21-32) Anion Gap (6-14) Blood Urea Nitrogen 27mg/dL (8-26) Creatinine 0.8mg/dL (0.7-1.3) Estimated GFR (Cockcroft-Gault) 91.9 Glucose Level 282mg/dL (70-99) Calcium Level 9.6mg/dL (8.5-10.1) Triglycerides Level 82mg/dL (0-150) Cholesterol Level 127mg/dL (0-200) LDL Cholesterol, Calculated 65mg/dL (0-100) VLDL Cholesterol, Calculated 16mg/dL (0-40) HDL Cholesterol 46mg/dL (40-60) Cholesterol/HDL Ratio 2.8 Glucose (Fingerstick) 177mg/dL (70-99) 230mg/dL (70-99) 249mg/dL (70-99) Test 07/26/16 08:06 Glucose (Fingerstick) 199mg/dL (70-99) Laboratory Tests Test 07/25/16 11:43 07/25/16 17:01 07/25/16 20:28 07/26/16 08:06 Glucose (Fingerstick) 177mg/dL (70-99) 230mg/dL (70-99) 249mg/dL (70-99) 199mg/dL (70-99) Microbiology 07/24/16 Urine Culture - Preliminary, Resulted 07/24/16 Urine Culture Result 1 (TAJ) - Preliminary, Resulted Medications Current Medications Ondansetron HCl (Zofran) 4 mg PRN Q8HRS PRN IV NAUSEA/VOMITING; Start 07/24/16 at 02:15; Stop 07/24/16 at 16:35; Status DC Morphine Sulfate 2 mg 2 mg PRN Q2HR PRN IV SEVERE PAIN; Start 07/24/16 at 02:15 ; Stop 07/25/16 at 02:14; Status DC Ceftriaxone Sodium (Rocephin 1gm Ivpb For Omni) 50 ml @ 100 mls/hr 1X ONCE IV Last administered on 07/24/16 04:08; Start 07/24/16 at 03:00; Stop 07/24/16 at 03:29; Status DC Insulin Aspart (Novolog) 0-5 UNITS TIDWMEALS SQ Last administered on 07/25/16 17:50; Start 07/24/16 at 12:00 Dextrose 12.5 gm PRN Q15MIN PRN IV SEE COMMENTS; Start 07/24/16 at 08:45 Insulin Aspart (Novolog) 17 units 1X ONCE SQ Last administered on 07/24/16 09 :20; Start 07/24/16 at 09:00; Stop 07/24/16 at 09:06; Status DC Potassium Chloride (Klor-Con) 40 meq BID PO Last administered on 07/24/16 20: 16; Start 07/24/16 at 10:15; Stop 07/24/16 at 23:00; Status DC Acetaminophen (Tylenol) 325 mg PRN Q6HRS PRN PO MILD PAIN / TEMP; Start at 11:30 Acetaminophen/ Hydrocodone Bitart (Lortab 5/325) 1 tab PRN Q6HRS PRN PO MODERATE TO SEVERE PAIN Last administered on 07/24/16 12:06; Start 07/24/16 at 11:30; Stop 07/24/16 at 16:36; Status DC Hydralazine HCl (Apresoline) 10 mg PRN Q4HRS PRN IVP ELEVATED BP, SEE COMMENTS ; Start 07/24/16 at 11:30 Ondansetron HCl (Zofran) 4 mg PRN Q8HRS PRN IV NAUSEA/VOMITING; Start 07/24/16 at 11:30 Albuterol Sulfate (Ventolin Neb Soln) 2.5 mg PRN Q4HRS PRN NEB SHORTNESS OF BREATH; Start 07/24/16 at 11:30; Stop 07/24/16 at 16:35; Status DC Aspirin (Ana M Aspirin) 325 mg DAILY PO Last administered on 07/25/16 08:41; Start 07/24/16 at 12:00 Atorvastatin Calcium (Lipitor) 40 mg QHS PO Last administered on 07/25/16 22: 40; Start 07/24/16 at 21:00 Clopidogrel Bisulfate (Plavix) 75 mg DAILY PO Last administered on 07/25/16 08 :41; Start 07/24/16 at 12:00 Docusate Sodium (Colace) 100 mg PRN BID PRN PO CONSTIPATION Last administered on 07/25/16 08:58; Start 07/24/16 at 11:30 Furosemide (Lasix) 40 mg BID92 PO Last administered on 07/25/16 09:00; Start 07/24/16 at 11:30 Acetaminophen/ Hydrocodone Bitart (Lortab 5/325) 1 tab PRN Q4HRS PRN PO PAIN Last administered on 07/25/16 22:40; Start 07/24/16 at 11:30 Insulin Detemir (Levemir) 10 units HS SQ Last administered on 07/25/16 21:00; Start 07/24/16 at 21:00 Albuterol Sulfate (Ventolin Neb Soln) 2.5 mg PRN Q4HRS PRN NEB SHORTNESS OF BREATH; Start 07/24/16 at 11:45 Metoprolol Tartrate (Lopressor) 25 mg DAILY PO Last administered on 07/25/16 09:00; Start 07/24/16 at 12:00; Stop 07/25/16 at 13:10; Status DC Pantoprazole Sodium (Protonix) 40 mg DAILYAC PO Last administered on 07/25/16 08:41; Start 07/24/16 at 11:30 Trazodone HCl (Desyrel) 100 mg QHS PO Last administered on 07/25/16 22:40; Start 07/24/16 at 21:00 Vitamin D (Vitamin D3) 2,000 unit DAILY PO Last administered on 07/25/16 08:41 ; Start 07/24/16 at 12:00 Insulin Aspart (Novolog) 12 units TIDAC SQ Last administered on 07/25/16 17:50 ; Start 07/24/16 at 16:30 Magnesium Hydroxide (Milk Of Magnesia) 2,400 mg PRN DAILY PRN PO CONSTIPATION; Start 07/24/16 at 11:45 Non-Formulary Medication 5 mg HS PO ; Start 07/24/16 at 21:00; Stop 07/24/16 at 21:00; Status DC Furosemide (Lasix) 40 mg 1X ONCE IVP Last administered on 07/24/16 12:45; Start 07/24/16 at 12:30; Stop 07/24/16 at 12:31; Status DC Potassium Chloride (Klor-Con) 20 meq 1X ONCE PO Last administered on 12:44; Start 07/24/16 at 12:45; Stop 07/24/16 at 12:46; Status DC Insulin Detemir (Levemir) 12 units 1X ONCE SQ ; Start 07/24/16 at 18:15; Stop 07/24/16 at 18:20; Status DC Insulin Aspart (Novolog) 12 units 1X ONCE SQ Last administered on 07/24/16 18 :10; Start 07/24/16 at 18:30; Stop 07/24/16 at 18:32; Status DC Heparin Sodium (Porcine) 5,000 unit Q8HRS SQ Last administered on 07/25/16 06: 11; Start 07/24/16 at 22:00 Ciprofloxacin (Cipro) 250 mg BID PO Last administered on 07/25/16 21:00; Start 07/25/16 at 12:00 Metoprolol Tartrate 25 mg 25 mg BID PO Last administered on 07/26/16 11:18; Start 07/25/16 at 21:00 Sodium Chloride (Iv Sodium Chloride 0.9% 500ml Bag) 500 ml @ 500 mls/hr 1X ONCE IV Last administered on 07/25/16 14:00; Start 07/25/16 at 14:00; Stop 06/29 at 14:59; Status DC Furosemide (Lasix) 40 mg 1X ONCE IVP ; Start 07/25/16 at 14:45; Stop 07/25/16 at 14:48; Status DC Active Scripts Active Reported Colace (Docusate Sodium) 100 Mg Capsule 1 Cap PO BID PRN Milk Of Magnesia (Magnesium Hydroxide) 2,400 Mg/10 Ml Oral.susp 2,400 Mg PO PRN Q24HRS PRN Melatonin 5 Mg Tablet 5 Mg PO HS Duoneb 0.5-3(2.5) Mg/3 Ml (Albuterol/Ipratropium) 3 Ml Ampul.neb 3 Ml NEB PRN Q4HRS PRN Atorvastatin Calcium 40 Mg Tablet 1 Tab PO DAILY Hydrocodone-Apap 5-325 (Hydrocodone Bit/Acetaminophen) 1 Each Tablet 1 Tab PO PRN Q4HRS PRN Clopidogrel (Clopidogrel Bisulfate) 75 Mg Tablet 1 Tab PO DAILY Furosemide 40 Mg Tablet 40 Mg PO BID Metoprolol Tartrate 25 Mg Tablet 1 Tab PO DAILY Vitamin D-3 (Cholecalciferol (Vitamin D3)) 2,000 Unit Tablet 2,000 Unit PO DAILY Humalog (Insulin Lispro) 100 Unit/1 Ml Cartridge 12 Unit SQ TIDAC Pantoprazole Sodium 40 Mg Tablet.dr 1 Tab PO DAILY Trazodone Hcl 50 Mg Tablet 100 Mg PO QHS Levemir Flexpen (Insulin Detemir) 100 Unit/1 Ml Insuln.pen 10 Unit SQ HS Aspirin 325 Mg Tablet 1 Tab PO DAILY Vitals/I & O Vital Sign - Last 24 Hours 1/12/17 07/25/16 07/25/16 07/25/16 11:41 13:40 13:44 13:50 Temp 97.1 97.1 Pulse 72 77 72 76 Resp 20 B/P 122/59 140/68 79/48 117/62 Pulse Ox 95 O2 Delivery Nasal Cannula O2 Flow Rate 4.0 07/25/16 07/25/16 07/25/16 07/25/16 15:22 19:35 19:59 21:00 Temp 98.0 97.5 98.0 97.5 Pulse 83 83 83 Resp 18 22 B/P 115/63 140/72 140/72 Pulse Ox 94 91 O2 Delivery Nasal Cannula Nasal Cannula Nasal Cannula O2 Flow Rate 4.0 4.0 07/25/16 07/25/16 07/25/16 07/26/16 22:38 22:40 23:40 02:58 Temp 97.6 97.2 97.6 97.2 Pulse 98 94 Resp 18 20 20 18 B/P 140/60 132/73 Pulse Ox 94 95 O2 Delivery Nasal Cannula Nasal Cannula Nasal Cannula Nasal Cannula O2 Flow Rate 4.0 4.0 4.0 4.0 07/26/16 07/26/16 07/26/16 07/26/16 07:30 11:18 11:20 11:31 Temp 97.5 97.1 97.5 97.1 Pulse 96 101 81 Resp 20 20 B/P 121/55 146/67 146/67 146/67 Pulse Ox 93 93 O2 Delivery Nasal Cannula Nasal Cannula Nasal Cannula O2 Flow Rate 4.0 4.0 4.0 Intake and Output 07/25/16 07/25/16 07/26/16 15:00 23:00 07:00 Intake Total 250 ml 400 ml Output Total 850 ml 650 ml Balance -600 ml -250 ml ZACH PETERSON MD Jul 26, 2016 11:40
[2016-07-26 12:01] LABS: TOTAL PROTEIN 6.2 g/dL (6.4-8.2); TOTAL PROTEIN 6.3 g/dL (6.4-8.2)
[2016-07-26] MEDS ORDERED: MIDAZOLAM HCL 2 MG/2 ML VIAL. ONE (12:15)
[2016-07-26] MEDS ORDERED: LIDOCAINE 1% / SOD BICARB 8.4% 20 ML VIAL. IJ ONE ×2 (12:15→13:00)
[2016-07-26] MEDS ORDERED: FENTANYL PF 100 MCG/2 ML VIAL. ONE (12:15)
--- NOTE | 2016-07-26 13:04 | PDOC ---
Exam Service Correspondent Service Correspondent Aide Inclusion Specialist Inclusion Specialist F Ndumbu Pre-Procedure Diagnosis Pre-Procedure Diagnosis 85 YO male with respiratory failure, CHF, and large left pleural effusion, poorly responsive to diuresis. Post-Procedure Diagnosis Post-Procedure Diagnosis Same Procedure Performed Procedure Performed CT guided Dx/Tx left thoracentesis Type of Anesthesia Type of Anesthesia Local only Estimated Blood Loss EBL: Trace Specimens Specimans 2400 cc yellow-clear left pleural fluid removed---samples to lab per protocol Condition of Patient Condition of Patient Stable. No apparent complication. No immediate post thora ptx. Disposition Disposition From IR/CT return to 204. 2 hr post thora insp/exp CXR requested. F/u with HIMS, Pulmonary, and Cardiology. Full report to follow. KAYLIE BANERJEE MD Jul 26, 2016 13:04
--- NOTE | 2016-07-26 14:12 | RAD ---
CT-guided diagnostic and therapeutic left thoracentesis Indication: 85-year-old male with respiratory failure, congestive heart failure, and large, symptomatic left pleural effusion, poorly responsive to diuresis. Anesthesia: Local only Procedure: Informed consent was obtained from the patient. He was placed supine on the CT scanner. Preliminary noncontrast CT images confirmed the presence of a large left pleural effusion, with associated left lung compression atelectasis. A skin site suitable for CT-guided thoracentesis was selected and marked along the lateral aspect of lower left hemithorax. That area was prepped and draped in the usual sterile fashion. Using aseptic technique, local anesthesia, and CT guidance, a micropuncture sheath was successfully introduced into the low left lateral pleural space. This sheath was then exchanged over a guidewire for a 6 [place] drainage catheter. Approximately 2400 cc of yellow-clear pleural fluid was then easily removed, samples which were submitted to the clinical laboratory per referring property utilization manager request. Completion CT images documented essentially complete resolution of the left pleural effusion, without pneumothorax. The drainage catheter was removed and a sterile dressing was applied. Patient tolerated the procedure well without apparent complication. Impression: Successful, uneventful CT-guided diagnostic and therapeutic left thoracentesis, as described. PQRS compliance statement: One or more of the following individualized dose reduction techniques was utilized for this CT procedure: 1. Automated exposure control. 2. Adjustment of MA and/or KV according to patient size. 3. Iterative reconstruction technique.
[2016-07-26] MEDS: CHOLECALCIFEROL (VITAMIN D3) 1,000 UNIT TABLET PO SCH (14:34)
[2016-07-26] MEDS: CIPROFLOXACIN HCL 250 MG TABLET PO SCH (14:34)
[2016-07-26] MEDS: PANTOPRAZOLE 40 MG TABLET. PO SCH (14:34)
[2016-07-26 14:55] LABS: BF CLARITY CLEAR; BF COLOR YELLOW
--- NOTE | 2016-07-26 15:37 | RAD ---
Exam: AP portable chest inspiratory and expiratory. History: 2 hours status post left thoracentesis. Comparison: Earlier 07/26/2016 and 07/25/2016. 07/21/2006. Findings: Cardiac silhouette appears within normal limits for size. Median sternotomy wires are present. Aortic atherosclerosis is noted. Dual-lead pacemaker by left subclavian approach is seen. There is interval marked reduction versus resolution of left pleural effusion, compatible with the provided history of thoracentesis. Patchy density seen at left lung base, could be atelectasis versus airspace disease. No significant right pleural effusion is seen. No pneumothorax is identified. Impression: 1. Interval left thoracentesis. No post procedure pneumothorax identified.
[2016-07-26] MEDS: CEFTRIAXONE SODIUM 1 GM in IV NORMAL SALINE 50ML 50 ML IV SCH (18:23)
[2016-07-26] MEDS: ATORVASTATIN CALCIUM 40 MG TABLET. PO SCH (21:07)
[2016-07-26] MEDS: traZODone 50 MG TABLET. PO SCH (21:07)
[2016-07-26] MEDS: INSULIN DETEMIR 300 UNITS/3 ML INSULN.PEN. SQ SCH (21:14)
[2016-07-26] MEDS: HYDROCODONE/APAP 5/325MG TABLET. PO PRN (23:02)
[2016-07-27] VITALS (7 sets, daily range): BP systolic 111–122; BP diastolic 47–65
--- NOTE | 2016-07-27 06:08 | PDOC ---
PULMONARY PROGRESS NOTES Subjective weak, has sob better s/p l thoracentesis, no cough, pain Vitals Vital Signs Date Time Temp Pulse Resp B/P Pulse Ox O2 Delivery O2 Flow Rate FiO2 07/27/16 03:00 98.1 83 24 111/60 96 Nasal Cannula 4.0 98.1 Comments ros as above other sys otherwise neg General: Alert, No acute distress HEENT: Other (nose throat clear, nc at perrl) Lungs: Crackles, Other (decrease bs) Cardiovascular: S1, S2 Abdomen: Soft, Non-tender, Other (no mass) Neuro Exam: Alert Extremities: Other (1+edema) Skin: Warm Labs Laboratory Tests Test 07/25/16 11:43 07/25/16 17:01 07/25/16 20:28 07/26/16 08:06 Glucose (Fingerstick) 177mg/dL (70-99) 230mg/dL (70-99) 249mg/dL (70-99) 199mg/dL (70-99) Test 07/26/16 09:53 07/26/16 11:00 07/26/16 12:21 07/26/16 17:34 Body Fluid Source Pleural Body Fluid Color Yellow Body Fluid Clarity Clear Body Fluid pH 7.4 Body Fluid Nucleated Cells 80/cmm Body Fluid Mononuclear WBCs (%) 99% Body Fluid Polymorphonuclear Cells 1% Body Fluid Total RBCs Counted 1470/cmm Prothrombin Time 13.6SEC (11.7-14.0) Prothromb Time International Ratio 1.1 (0.8-1.1) Activated Partial Thromboplast Time 33SEC (24-38) Glucose Level 231mg/dL (70-99) Lactate Dehydrogenase 165U/L (85-227) Total Protein 6.3g/dL (6.4-8.2) Glucose (Fingerstick) 197mg/dL (70-99) 284mg/dL (70-99) Test 07/26/16 20:48 Glucose (Fingerstick) 320mg/dL (70-99) Laboratory Tests Test 07/26/16 08:06 07/26/16 09:53 07/26/16 11:00 07/26/16 12:21 Glucose (Fingerstick) 199mg/dL (70-99) 197mg/dL (70-99) Body Fluid Source Pleural Body Fluid Color Yellow Body Fluid Clarity Clear Body Fluid pH 7.4 Body Fluid Nucleated Cells 80/cmm Body Fluid Mononuclear WBCs (%) 99% Body Fluid Polymorphonuclear Cells 1% Body Fluid Total RBCs Counted 1470/cmm Prothrombin Time 13.6SEC (11.7-14.0) Prothromb Time International Ratio 1.1 (0.8-1.1) Activated Partial Thromboplast Time 33SEC (24-38) Glucose Level 231mg/dL (70-99) Lactate Dehydrogenase 165U/L (85-227) Total Protein 6.3g/dL (6.4-8.2) Test 07/26/16 17:34 07/26/16 20:48 Glucose (Fingerstick) 284mg/dL (70-99) 320mg/dL (70-99) Medications Active Scripts Medications Dose Route/Sig Days Date Category Colace (Docusate Sodium) 100 Mg Capsule 1 Cap PO BID PRN 07/24/16 Reported Milk Of Magnesia (Magnesium Hydroxide) 2,400 Mg/10 Ml Oral.susp 2,400 Mg PO PRN Q24HRS PRN 07/24/16 Reported Melatonin 5 Mg Tablet 5 Mg PO HS 07/24/16 Reported Duoneb 0.5-3(2.5) Mg/3 Ml (Albuterol/Ipratropium) 3 Ml Ampul.neb 3 Ml NEB PRN Q4HRS PRN 07/24/16 Reported Atorvastatin Calcium 40 Mg Tablet 1 Tab PO DAILY 07/24/16 Reported Hydrocodone-Apap 5-325 (Hydrocodone Bit/Acetaminophen) 1 Each Tablet 1 Tab PO PRN Q4HRS PRN 07/24/16 Reported Clopidogrel (Clopidogrel Bisulfate) 75 Mg Tablet 1 Tab PO DAILY 07/24/16 Reported Furosemide 40 Mg Tablet 40 Mg PO BID 07/24/16 Reported Metoprolol Tartrate 25 Mg Tablet 1 Tab PO DAILY 07/24/16 Reported Vitamin D-3 (Cholecalciferol (Vitamin D3)) 2,000 Unit Tablet 2,000 Unit PO DAILY 07/24/16 Reported Humalog (Insulin Lispro) 100 Unit/1 Ml Cartridge 12 Unit SQ TIDAC 07/24/16 Reported Pantoprazole Sodium 40 Mg Tablet.dr 1 Tab PO DAILY 07/24/16 Reported Trazodone Hcl 50 Mg Tablet 100 Mg PO QHS 05/11/14 Reported Levemir Flexpen (Insulin Detemir) 100 Unit/1 Ml Insuln.pen 10 Unit SQ HS 05/11/14 Reported Aspirin 325 Mg Tablet 1 Tab PO DAILY 05/11/14 Reported Comments cxr reviewed, interval left thoracentesis. No post procedure pneumothorax identified. Impression . 1. Acute hypoxic respiratory failure secondary to congestive heart failure. 2. Abnormal chest x-ray with bilateral interstitial infiltrates, more on the left than on the right and bilateral pleural effusion and more on the left than on the right. not responding well to diuresis, s/p thoracentesis on the left side, suspect 2/2 to chf, fu pf studies 3. No significant history of tobacco use. 4. History of prior left-sided thoracentesis in February, it was not a hemothorax. 5. Syncopal episode, present on admission. Cardiology is following. Plan . 1. cont diuresis. 2. Replace potassium.as needed 3. thoracentesis 07/26 4. o2 titration. 5. Follow cardiology recommendation. 6. pt ot discussed w rn, pt and his and daughter JIMENAAINSLEY MD Jul 27, 2016 06:08
[2016-07-27] MEDS: HEPARIN PF for SUB-Q USE 5,000 UNIT/0.5 ML VIAL. SQ SCH ×3 (06:30→22:21)
--- NOTE | 2016-07-27 07:08 | PDOC ---
PROGRESS NOTES Chief Complaint Chief Complaint 1. cc: fall 1. Mechanical fall.no syncope 2. Atrial fibrillation, currently rate controlled. 3. Coronary artery disease and CABG history. 4. Chronic obstructive pulmonary disease. 5. Hypertension. 6. Hypoxic respiratory failure, Pl effusions 7. Hyperlipidemia. 8. Gastroesophageal reflux disease. 9. UTI- Ecoli 10. Physical debility 11. Acute on Chronic CHF Plan Echo LVEF 60% IV Rocephin diuresis per cardiology. S/P Thoracentesis 700 ml out Physically weak, d/w cardiology, recommend palliative consult, family agrees to talk to team. PT/OT Labs reviwed, Monitor electrolytes. SSI supplemental oxygen. History of Present Illness History of Present Illness physically weak no fever no chills. no acute events. Vitals Vitals Vital Signs Date Time Temp Pulse Resp B/P Pulse Ox O2 Delivery O2 Flow Rate FiO2 07/27/16 03:00 98.1 83 24 111/60 96 Nasal Cannula 4.0 98.1 Physical Exam General: Alert, Oriented X3, Cooperative, No acute distress Heart: Normal S1, Normal S2, Other (IRRR; tele: atrial fib; bilateral carotid bruits) Lungs: Crackles, Other (decrease bs) Abdomen: Normal bowel sounds, Soft Extremities: No edema, Normal pulses Skin: No rashes Labs LABS Laboratory Tests Test 07/26/16 08:06 07/26/16 09:53 07/26/16 11:00 07/26/16 12:21 Glucose (Fingerstick) 199mg/dL (70-99) 197mg/dL (70-99) Body Fluid Source Pleural Body Fluid Color Yellow Body Fluid Clarity Clear Body Fluid pH 7.4 Body Fluid Nucleated Cells 80/cmm Body Fluid Mononuclear WBCs (%) 99% Body Fluid Polymorphonuclear Cells 1% Body Fluid Total RBCs Counted 1470/cmm Prothrombin Time 13.6SEC (11.7-14.0) Prothromb Time International Ratio 1.1 (0.8-1.1) Activated Partial Thromboplast Time 33SEC (24-38) Glucose Level 231mg/dL (70-99) Lactate Dehydrogenase 165U/L (85-227) Total Protein 6.3g/dL (6.4-8.2) Test 07/26/16 17:34 07/26/16 20:48 Glucose (Fingerstick) 284mg/dL (70-99) 320mg/dL (70-99) Assessment and Plan Assessmemt and Plan Problems Medical Problems: (1) Difficulty breathing Status: Acute (2) Elevated brain natriuretic peptide (BNP) level Status: Acute (3) Fall Status: Acute (4) Hypoxia Status: Acute (5) Pneumonia Status: Acute (6) Urinary tract infection Status: Acute Problems: Comment Review of Relevant I have reviewed the following items ede (where applicable) has been applied. Labs Laboratory Tests Test 07/25/16 11:43 07/25/16 17:01 07/25/16 20:28 07/26/16 08:06 Glucose (Fingerstick) 177mg/dL (70-99) 230mg/dL (70-99) 249mg/dL (70-99) 199mg/dL (70-99) Test 07/26/16 09:53 07/26/16 11:00 07/26/16 12:21 07/26/16 17:34 Body Fluid Source Pleural Body Fluid Color Yellow Body Fluid Clarity Clear Body Fluid pH 7.4 Body Fluid Nucleated Cells 80/cmm Body Fluid Mononuclear WBCs (%) 99% Body Fluid Polymorphonuclear Cells 1% Body Fluid Total RBCs Counted 1470/cmm Prothrombin Time 13.6SEC (11.7-14.0) Prothromb Time International Ratio 1.1 (0.8-1.1) Activated Partial Thromboplast Time 33SEC (24-38) Glucose Level 231mg/dL (70-99) Lactate Dehydrogenase 165U/L (85-227) Total Protein 6.3g/dL (6.4-8.2) Glucose (Fingerstick) 197mg/dL (70-99) 284mg/dL (70-99) Test 07/26/16 20:48 Glucose (Fingerstick) 320mg/dL (70-99) Laboratory Tests Test 07/26/16 08:06 07/26/16 09:53 07/26/16 11:00 07/26/16 12:21 Glucose (Fingerstick) 199mg/dL (70-99) 197mg/dL (70-99) Body Fluid Source Pleural Body Fluid Color Yellow Body Fluid Clarity Clear Body Fluid pH 7.4 Body Fluid Nucleated Cells 80/cmm Body Fluid Mononuclear WBCs (%) 99% Body Fluid Polymorphonuclear Cells 1% Body Fluid Total RBCs Counted 1470/cmm Prothrombin Time 13.6SEC (11.7-14.0) Prothromb Time International Ratio 1.1 (0.8-1.1) Activated Partial Thromboplast Time 33SEC (24-38) Glucose Level 231mg/dL (70-99) Lactate Dehydrogenase 165U/L (85-227) Total Protein 6.3g/dL (6.4-8.2) Test 07/26/16 17:34 07/26/16 20:48 Glucose (Fingerstick) 284mg/dL (70-99) 320mg/dL (70-99) Microbiology 07/26/16 Gram Stain - Final, Complete 07/24/16 Urine Culture - Final, Complete 07/24/16 Urine Culture Result 1 (TAJ) - Final, Complete 07/24/16 Antimicrobic Susceptibility - Final, Complete Medications Current Medications Ondansetron HCl (Zofran) 4 mg PRN Q8HRS PRN IV NAUSEA/VOMITING; Start 07/24/16 at 02:15; Stop 07/24/16 at 16:35; Status DC Morphine Sulfate 2 mg 2 mg PRN Q2HR PRN IV SEVERE PAIN; Start 07/24/16 at 02:15 ; Stop 07/25/16 at 02:14; Status DC Ceftriaxone Sodium (Rocephin 1gm Ivpb For Omni) 50 ml @ 100 mls/hr 1X ONCE IV Last administered on 07/24/16 04:08; Start 07/24/16 at 03:00; Stop 07/24/16 at 03:29; Status DC Insulin Aspart (Novolog) 0-5 UNITS TIDWMEALS SQ Last administered on 07/26/16 18:20; Start 07/24/16 at 12:00 Dextrose 12.5 gm PRN Q15MIN PRN IV SEE COMMENTS; Start 07/24/16 at 08:45 Insulin Aspart (Novolog) 17 units 1X ONCE SQ Last administered on 07/24/16 09 :20; Start 07/24/16 at 09:00; Stop 07/24/16 at 09:06; Status DC Potassium Chloride (Klor-Con) 40 meq BID PO Last administered on 07/24/16 20: 16; Start 07/24/16 at 10:15; Stop 07/24/16 at 23:00; Status DC Acetaminophen (Tylenol) 325 mg PRN Q6HRS PRN PO MILD PAIN / TEMP; Start at 11:30 Acetaminophen/ Hydrocodone Bitart (Lortab 5/325) 1 tab PRN Q6HRS PRN PO MODERATE TO SEVERE PAIN Last administered on 07/24/16 12:06; Start 07/24/16 at 11:30; Stop 07/24/16 at 16:36; Status DC Hydralazine HCl (Apresoline) 10 mg PRN Q4HRS PRN IVP ELEVATED BP, SEE COMMENTS ; Start 07/24/16 at 11:30 Ondansetron HCl (Zofran) 4 mg PRN Q8HRS PRN IV NAUSEA/VOMITING; Start 07/24/16 at 11:30 Albuterol Sulfate (Ventolin Neb Soln) 2.5 mg PRN Q4HRS PRN NEB SHORTNESS OF BREATH; Start 07/24/16 at 11:30; Stop 07/24/16 at 16:35; Status DC Aspirin (Ana M Aspirin) 325 mg DAILY PO Last administered on 07/25/16 08:41; Start 07/24/16 at 12:00 Atorvastatin Calcium (Lipitor) 40 mg QHS PO Last administered on 07/26/16 21: 07; Start 07/24/16 at 21:00 Clopidogrel Bisulfate (Plavix) 75 mg DAILY PO Last administered on 07/25/16 08 :41; Start 07/24/16 at 12:00 Docusate Sodium (Colace) 100 mg PRN BID PRN PO CONSTIPATION Last administered on 07/25/16 08:58; Start 07/24/16 at 11:30 Furosemide (Lasix) 40 mg BID92 PO Last administered on 07/25/16 09:00; Start 07/24/16 at 11:30 Acetaminophen/ Hydrocodone Bitart (Lortab 5/325) 1 tab PRN Q4HRS PRN PO PAIN Last administered on 07/26/16 23:02; Start 07/24/16 at 11:30 Insulin Detemir (Levemir) 10 units HS SQ Last administered on 07/26/16 21:14; Start 07/24/16 at 21:00 Albuterol Sulfate (Ventolin Neb Soln) 2.5 mg PRN Q4HRS PRN NEB SHORTNESS OF BREATH; Start 07/24/16 at 11:45 Metoprolol Tartrate (Lopressor) 25 mg DAILY PO Last administered on 07/25/16 09:00; Start 07/24/16 at 12:00; Stop 07/25/16 at 13:10; Status DC Pantoprazole Sodium (Protonix) 40 mg DAILYAC PO Last administered on 07/26/16 14:34; Start 07/24/16 at 11:30 Trazodone HCl (Desyrel) 100 mg QHS PO Last administered on 07/26/16 21:07; Start 07/24/16 at 21:00 Vitamin D (Vitamin D3) 2,000 unit DAILY PO Last administered on 07/26/16 14:34 ; Start 07/24/16 at 12:00 Insulin Aspart (Novolog) 12 units TIDAC SQ Last administered on 07/26/16 18:19 ; Start 07/24/16 at 16:30 Magnesium Hydroxide (Milk Of Magnesia) 2,400 mg PRN DAILY PRN PO CONSTIPATION; Start 07/24/16 at 11:45 Non-Formulary Medication 5 mg HS PO ; Start 07/24/16 at 21:00; Stop 07/24/16 at 21:00; Status DC Furosemide (Lasix) 40 mg 1X ONCE IVP Last administered on 07/24/16 12:45; Start 07/24/16 at 12:30; Stop 07/24/16 at 12:31; Status DC Potassium Chloride (Klor-Con) 20 meq 1X ONCE PO Last administered on 12:44; Start 07/24/16 at 12:45; Stop 07/24/16 at 12:46; Status DC Insulin Detemir (Levemir) 12 units 1X ONCE SQ ; Start 07/24/16 at 18:15; Stop 07/24/16 at 18:20; Status DC Insulin Aspart (Novolog) 12 units 1X ONCE SQ Last administered on 07/24/16 18 :10; Start 07/24/16 at 18:30; Stop 07/24/16 at 18:32; Status DC Heparin Sodium (Porcine) 5,000 unit Q8HRS SQ Last administered on 07/27/16 06: 30; Start 07/24/16 at 22:00 Ciprofloxacin (Cipro) 250 mg BID PO Last administered on 07/26/16 14:34; Start 07/25/16 at 12:00; Stop 07/26/16 at 17:19; Status DC Metoprolol Tartrate 25 mg 25 mg BID PO Last administered on 07/26/16 21:07; Start 07/25/16 at 21:00 Sodium Chloride (Iv Sodium Chloride 0.9% 500ml Bag) 500 ml @ 500 mls/hr 1X ONCE IV Last administered on 07/25/16 14:00; Start 07/25/16 at 14:00; Stop 06/29 at 14:59; Status DC Furosemide (Lasix) 40 mg 1X ONCE IVP ; Start 07/25/16 at 14:45; Stop 07/25/16 at 14:48; Status DC Lidocaine/Sodium Bicarbonate (Buffered Lidocaine 1%) 20 ml STK-MED ONCE IJ ; Start 07/26/16 at 12:15; Stop 07/26/16 at 12:16; Status DC Fentanyl Citrate (Fentanyl 2ml Vial) 100 mcg STK-MED ONCE .ROUTE ; Start at 12:15; Stop 07/26/16 at 12:16; Status DC Midazolam HCl (Versed) 2 mg STK-MED ONCE .ROUTE ; Start 07/26/16 at 12:15; Stop 07/26/16 at 12:16; Status DC Lidocaine/Sodium Bicarbonate 20 ml 20 ml 1X ONCE IJ Last administered on 12:44; Start 07/26/16 at 13:00; Stop 07/26/16 at 13:01; Status DC Ceftriaxone Sodium/Sodium Chloride (Rocephin/Iv Sodium Chloride 0.9% 50ml) 50 ml @ 100 mls/hr Q24H IV Last administered on 07/26/16 18:23; Start 07/26/16 at 17:30 Active Scripts Active Reported Colace (Docusate Sodium) 100 Mg Capsule 1 Cap PO BID PRN Milk Of Magnesia (Magnesium Hydroxide) 2,400 Mg/10 Ml Oral.susp 2,400 Mg PO PRN Q24HRS PRN Melatonin 5 Mg Tablet 5 Mg PO HS Duoneb 0.5-3(2.5) Mg/3 Ml (Albuterol/Ipratropium) 3 Ml Ampul.neb 3 Ml NEB PRN Q4HRS PRN Atorvastatin Calcium 40 Mg Tablet 1 Tab PO DAILY Hydrocodone-Apap 5-325 (Hydrocodone Bit/Acetaminophen) 1 Each Tablet 1 Tab PO PRN Q4HRS PRN Clopidogrel (Clopidogrel Bisulfate) 75 Mg Tablet 1 Tab PO DAILY Furosemide 40 Mg Tablet 40 Mg PO BID Metoprolol Tartrate 25 Mg Tablet 1 Tab PO DAILY Vitamin D-3 (Cholecalciferol (Vitamin D3)) 2,000 Unit Tablet 2,000 Unit PO DAILY Humalog (Insulin Lispro) 100 Unit/1 Ml Cartridge 12 Unit SQ TIDAC Pantoprazole Sodium 40 Mg Tablet.dr 1 Tab PO DAILY Trazodone Hcl 50 Mg Tablet 100 Mg PO QHS Levemir Flexpen (Insulin Detemir) 100 Unit/1 Ml Insuln.pen 10 Unit SQ HS Aspirin 325 Mg Tablet 1 Tab PO DAILY Vitals/I & O Vital Sign - Last 24 Hours 07/26/16 07/26/16 07/26/16 07/26/16 07:30 08:00 11:18 11:20 Temp 97.5 97.5 Pulse 96 101 Resp 20 B/P 121/55 146/67 146/67 Pulse Ox 93 O2 Delivery Nasal Cannula Nasal Cannula Nasal Cannula O2 Flow Rate 4.0 4.0 4.0 07/26/16 07/26/16 07/26/16 07/26/16 11:31 12:44 12:49 12:53 Temp 97.1 97.1 Pulse 81 80 86 81 Resp 20 20 20 22 B/P 146/67 123/68 124/60 119/66 Pulse Ox 93 95 92 93 O2 Delivery Nasal Cannula Nasal Cannula Nasal Cannula Nasal Cannula O2 Flow Rate 4.0 4.0 4.0 4.0 07/26/16 07/26/16 07/26/16 07/26/16 12:57 13:02 13:07 13:12 Pulse 73 81 80 74 Resp 21 30 32 30 B/P 110/64 117/62 108/61 93/47 Pulse Ox 94 94 96 97 O2 Delivery Nasal Cannula Nasal Cannula Nasal Cannula Nasal Cannula O2 Flow Rate 4.0 4.0 4.0 4.0 07/26/16 07/26/16 07/26/16 07/26/16 13:30 13:45 14:00 14:30 Pulse 93 75 87 91 Resp 24 20 22 22 B/P 112/59 110/56 114/70 110/62 Pulse Ox 96 97 97 98 O2 Delivery Nasal Cannula Nasal Cannula Nasal Cannula Nasal Cannula O2 Flow Rate 4.0 4.0 4.0 4.0 07/26/16 07/26/16 07/26/16 07/26/16 14:41 15:00 19:25 20:00 Temp 97.1 97.1 97.1 97.1 Pulse 100 84 95 Resp B/P 110/62 111/57 128/62 Pulse Ox 94 97 94 O2 Delivery Nasal Cannula Nasal Cannula Nasal Cannula Nasal Cannula O2 Flow Rate 4.0 4.0 4.0 4.0 07/26/16 07/26/16 07/26/16 07/27/16 21:07 23:02 23:36 00:03 Temp 98.0 98.0 Pulse 92 99 Resp B/P 128/62 138/63 Pulse Ox 94 96 O2 Delivery Nasal Cannula Nasal Cannula Nasal Cannula O2 Flow Rate 4.0 4.0 4.0 07/27/16 03:00 Temp 98.1 98.1 Pulse 83 Resp 24 B/P 111/60 Pulse Ox 96 O2 Delivery Nasal Cannula O2 Flow Rate 4.0 Intake and Output 07/26/16 07/26/16 07/27/16 15:00 23:00 07:00 Intake Total 290 ml 400 ml Output Total 600 ml 850 ml Balance -310 ml -450 ml ZACH PETERSON MD Jul 27, 2016 07:08
[2016-07-27] MEDS: CHOLECALCIFEROL (VITAMIN D3) 1,000 UNIT TABLET PO SCH (09:28)
[2016-07-27] MEDS: FUROSEMIDE 40 MG TABLET PO SCH (09:28)
[2016-07-27] MEDS: METOPROLOL TART IMMED RELEASE 25 MG TABLET PO SCH ×2 (09:28→21:00)
[2016-07-27] MEDS: ASPIRIN 325 MG TABLET PO SCH (09:28)
[2016-07-27] MEDS: CLOPIDOGREL BISULFATE 75 MG TABLET PO SCH (09:29)
[2016-07-27] MEDS: PANTOPRAZOLE 40 MG TABLET. PO SCH (09:29)
[2016-07-27] MEDS: INSULIN ASPART 300 UNITS/3 ML INSULN.PEN SQ SCH ×6 (09:32→17:00)
--- NOTE | 2016-07-27 10:46 | PDOC ---
CARDIOLOGY PROGRESS NOTE SUBJECTIVE: s/p thoracentesis yesterday. No acute events. OBJECTIVE: Vital SIgns: Vital Signs Date Time Temp Pulse Resp B/P Pulse Ox O2 Delivery O2 Flow Rate FiO2 07/27/16 09:28 74 115/60 07/27/16 07:55 97.9 22 97 Nasal Cannula 4.0 97.9 I & O -760 ml Objective: Gen: somnolent, but easily arousable. CVS: irr irr. no m/r/g lungs with decreased breath sounds at the bases. abd soft Ext no edema. neuro non focal exam CURRENT MEDICATIONS: Current Medications Medications (Trade) Dose Ordered Sig/Elayne Start Time Stop Time Status Last Admin Dose Admin Acetaminophen (Tylenol) 325 mg PRN Q6HRS PRN 07/24/16 11:30 Acetaminophen/ Hydrocodone Bitart (Lortab 5/325) 1 tab PRN Q4HRS PRN 07/24/16 11:30 07/26/16 23:02 1 TAB Albuterol Sulfate (Ventolin Neb Soln) 2.5 mg PRN Q4HRS PRN 07/24/16 11:45 Aspirin (Ana M Aspirin) 325 mg DAILY 07/24/16 12:00 07/27/16 09:28 325 MG Atorvastatin Calcium (Lipitor) 40 mg QHS 07/24/16 21:00 07/26/16 21:07 40 MG Ceftriaxone Sodium/Sodium Chloride (Rocephin/Iv Sodium Chloride 0.9% 50ml) 50 ml @ 100 mls/hr Q24H 07/26/16 17:30 07/26/16 18:23 100 MLS/HR Ceftriaxone Sodium (Rocephin 1gm Ivpb For Omni) 50 ml @ 100 mls/hr 1X ONCE 07/24/16 03:00 07/24/16 03:29 DC 07/24/16 04:08 100 MLS/HR Ciprofloxacin (Cipro) 250 mg BID 07/25/16 12:00 07/26/16 17:19 DC 07/26/16 14:34 250 MG Clopidogrel Bisulfate (Plavix) 75 mg DAILY 07/24/16 12:00 07/27/16 09:29 75 MG Dextrose 12.5 gm PRN Q15MIN PRN 07/24/16 08:45 Docusate Sodium (Colace) 100 mg PRN BID PRN 07/24/16 11:30 07/25/16 08:58 100 MG Fentanyl Citrate (Fentanyl 2ml Vial) 100 mcg STK-MED ONCE 07/26/16 12:15 07/26/16 12:16 DC Furosemide (Lasix) 40 mg 1X ONCE 07/25/16 14:45 07/25/16 14:48 DC Heparin Sodium (Porcine) 5,000 unit Q8HRS 07/24/16 22:00 07/27/16 06:30 5,000 UNIT Hydralazine HCl (Apresoline) 10 mg PRN Q4HRS PRN 07/24/16 11:30 Insulin Aspart (Novolog) 12 units 1X ONCE 07/24/16 18:30 07/24/16 18:32 DC 07/24/16 18:10 12 UNITS Insulin Detemir (Levemir) 15 units HS 07/27/16 21:00 Lidocaine/Sodium Bicarbonate (Buffered Lidocaine 1%) 20 ml STK-MED ONCE 07/26/16 12:15 07/26/16 12:16 DC Lidocaine/Sodium Bicarbonate 20 ml 20 ml 1X ONCE 07/26/16 13:00 07/26/16 13:01 DC 07/26/16 12:44 10 ML Magnesium Hydroxide (Milk Of Magnesia) 2,400 mg PRN DAILY PRN 07/24/16 11:45 Metoprolol Tartrate (Lopressor) 25 mg DAILY 07/24/16 12:00 07/25/16 13:10 DC 07/25/16 09:00 25 MG Metoprolol Tartrate 25 mg 25 mg BID 07/25/16 21:00 07/27/16 09:28 25 MG Midazolam HCl (Versed) 2 mg STK-MED ONCE 07/26/16 12:15 07/26/16 12:16 DC Morphine Sulfate 2 mg 2 mg PRN Q2HR PRN 07/24/16 02:15 07/25/16 02:14 DC Non-Formulary Medication 5 mg HS 07/24/16 21:00 07/24/16 21:00 DC Ondansetron HCl (Zofran) 4 mg PRN Q8HRS PRN 07/24/16 11:30 Pantoprazole Sodium (Protonix) 40 mg DAILYAC 07/24/16 11:30 07/27/16 09:29 40 MG Potassium Chloride (Klor-Con) 20 meq 1X ONCE 07/24/16 12:45 07/24/16 12:46 DC 07/24/16 12:44 20 MEQ Sodium Chloride (Iv Sodium Chloride 0.9% 500ml Bag) 500 ml @ 500 mls/hr 1X ONCE 07/25/16 14:00 07/25/16 14:59 DC 07/25/16 14:00 500 MLS/HR Trazodone HCl (Desyrel) 100 mg QHS 07/24/16 21:00 07/26/16 21:07 100 MG Vitamin D (Vitamin D3) 2,000 unit DAILY 07/24/16 12:00 07/27/16 09:28 2,000 UNIT ASSESSMENT: 1. Acute on chronic diastolic HF 2. s/p L sided thoracentesis 3. Repeat orthostatics 4. Palliative care consult after long family discussion today about goals of care. 5. Decrease lasix to 40mg daily Problems: MICAELA CHAUDHARI MD Jul 27, 2016 10:46
[2016-07-27] MEDS: CEFTRIAXONE SODIUM 1 GM in IV NORMAL SALINE 50ML 50 ML IV SCH (19:38)
[2016-07-27] MEDS: HYDROCODONE/APAP 5/325MG TABLET. PO PRN ×2 (19:42→23:32)
[2016-07-27] MEDS: ATORVASTATIN CALCIUM 40 MG TABLET. PO SCH (22:13)
[2016-07-27] MEDS: traZODone 50 MG TABLET. PO SCH (22:13)
[2016-07-27] MEDS: INSULIN DETEMIR 300 UNITS/3 ML INSULN.PEN. SQ SCH (22:20)
[2016-07-28 03:00] VITALS: BP 110/55
--- NOTE | 2016-07-28 06:59 | PDOC ---
PULMONARY PROGRESS NOTES Subjective weak, has sob better s/p l thoracentesis, has cough, thick sputum, pain Vitals Vital Signs Date Time Temp Pulse Resp B/P Pulse Ox O2 Delivery O2 Flow Rate FiO2 07/28/16 03:00 97.9 84 22 110/55 95 Nasal Cannula 4.0 97.9 Comments ros as above other sys otherwise neg General: Alert, No acute distress HEENT: Other (nose throat clear, nc at perrl) Lungs: Crackles, Other (decrease bs) Cardiovascular: S1, S2 Abdomen: Soft, Non-tender, Other (no mass) Neuro Exam: Alert Extremities: Other (1+edema) Skin: Warm Labs Laboratory Tests Test 07/26/16 08:06 07/26/16 09:53 07/26/16 11:00 07/26/16 12:13 Glucose (Fingerstick) 199mg/dL (70-99) Body Fluid Source Pleural Body Fluid Color Yellow Body Fluid Clarity Clear Body Fluid pH 7.4 Body Fluid Nucleated Cells 80/cmm Body Fluid Mononuclear WBCs (%) 99% Body Fluid Polymorphonuclear Cells 1% Body Fluid Total RBCs Counted 1470/cmm Prothrombin Time 13.6SEC (11.7-14.0) Prothromb Time International Ratio 1.1 (0.8-1.1) Activated Partial Thromboplast Time 33SEC (24-38) Glucose Level 231mg/dL (70-99) Lactate Dehydrogenase 165U/L (85-227) Total Protein 6.3g/dL (6.4-8.2) Body Fluid Glucose 232mg/dL (.) Body Fluid Total Protein 2.9g/dL (.) Body Fluid Lactate Dehydrogenase 85IU/L (.) Test 07/26/16 12:21 07/26/16 17:34 07/26/16 20:48 07/27/16 08:09 Glucose (Fingerstick) 197mg/dL (70-99) 284mg/dL (70-99) 320mg/dL (70-99) 176mg/dL (70-99) Test 07/27/16 11:58 07/27/16 17:37 07/27/16 22:04 Glucose (Fingerstick) 223mg/dL (70-99) 185mg/dL (70-99) 211mg/dL (70-99) Laboratory Tests Test 07/27/16 08:09 07/27/16 11:58 07/27/16 17:37 07/27/16 22:04 Glucose (Fingerstick) 176mg/dL (70-99) 223mg/dL (70-99) 185mg/dL (70-99) 211mg/dL (70-99) Medications Active Scripts Medications Dose Route/Sig Days Date Category Colace (Docusate Sodium) 100 Mg Capsule 1 Cap PO BID PRN 07/24/16 Reported Milk Of Magnesia (Magnesium Hydroxide) 2,400 Mg/10 Ml Oral.susp 2,400 Mg PO PRN Q24HRS PRN 07/24/16 Reported Melatonin 5 Mg Tablet 5 Mg PO HS 07/24/16 Reported Duoneb 0.5-3(2.5) Mg/3 Ml (Albuterol/Ipratropium) 3 Ml Ampul.neb 3 Ml NEB PRN Q4HRS PRN 07/24/16 Reported Atorvastatin Calcium 40 Mg Tablet 1 Tab PO DAILY 07/24/16 Reported Hydrocodone-Apap 5-325 (Hydrocodone Bit/Acetaminophen) 1 Each Tablet 1 Tab PO PRN Q4HRS PRN 07/24/16 Reported Clopidogrel (Clopidogrel Bisulfate) 75 Mg Tablet 1 Tab PO DAILY 07/24/16 Reported Furosemide 40 Mg Tablet 40 Mg PO BID 07/24/16 Reported Metoprolol Tartrate 25 Mg Tablet 1 Tab PO DAILY 07/24/16 Reported Vitamin D-3 (Cholecalciferol (Vitamin D3)) 2,000 Unit Tablet 2,000 Unit PO DAILY 07/24/16 Reported Humalog (Insulin Lispro) 100 Unit/1 Ml Cartridge 12 Unit SQ TIDAC 07/24/16 Reported Pantoprazole Sodium 40 Mg Tablet.dr 1 Tab PO DAILY 07/24/16 Reported Trazodone Hcl 50 Mg Tablet 100 Mg PO QHS 05/11/14 Reported Levemir Flexpen (Insulin Detemir) 100 Unit/1 Ml Insuln.pen 10 Unit SQ HS 05/11/14 Reported Aspirin 325 Mg Tablet 1 Tab PO DAILY 05/11/14 Reported Comments cxr reviewed, interval left thoracentesis. No post procedure pneumothorax identified. Impression . 1. Acute hypoxic respiratory failure secondary to congestive heart failure. 2. Abnormal chest x-ray with bilateral interstitial infiltrates, more on the left than on the right and bilateral pleural effusion and more on the left than on the right. not responding well to diuresis, s/p thoracentesis on the left side, transudate, 2/2 to chf, fu pf studies 3. No significant history of tobacco use. 4. History of prior left-sided thoracentesis in February, it was not a hemothorax. 5. Syncopal episode, present on admission. Cardiology is following. Plan . 1. cont diuresis. 2. Replace potassium.as needed 3. thoracentesis 07/26 4. o2 titration. 5. Follow cardiology recommendation. 6. pt ot 7. sputum cx discussed w rn, pt and his and daughter JIMENAAINSLEY MARINELLI Jul 28, 2016 06:59
[2016-07-28] MEDS: HEPARIN PF for SUB-Q USE 5,000 UNIT/0.5 ML VIAL. SQ SCH ×3 (07:16→21:01)
[2016-07-28 07:58] VITALS: BP 135/54
[2016-07-28 10:58] VITALS: BP 119/51
--- NOTE | 2016-07-28 11:06 | PDOC ---
PROGRESS NOTES Chief Complaint Chief Complaint 1. cc: fall 1. Mechanical fall.no syncope 2. Atrial fibrillation, currently rate controlled. 3. Coronary artery disease and CABG history. 4. Chronic obstructive pulmonary disease. 5. Hypertension. 6. Hypoxic respiratory failure, Pl effusions 7. Hyperlipidemia. 8. Gastroesophageal reflux disease. 9. UTI- Ecoli 10. Physical debility 11. Acute on Chronic CHF Plan drowsy, decrease narcotics and trazodone IV Rocephin diuresis per cardiology. S/P Thoracentesis 700 ml out, follow results, gram statin, pulmonology following. Physically weak, d/w cardiology, recommend palliative consult pending. PT/OT Labs reviwed, Monitor electrolytes. SSI supplemental oxygen. Prognosis guarded, high risk for readmissions. History of Present Illness History of Present Illness physically weak no fever no chills. no acute events. Vitals Vitals Vital Signs Date Time Temp Pulse Resp B/P Pulse Ox O2 Delivery O2 Flow Rate FiO2 07/28/16 10:58 97.6 81 20 119/51 98 Nasal Cannula 4.0 97.6 Physical Exam General: Alert, No acute distress, Other (drwosy) Heart: Normal S1, Normal S2, Other (IRRR; tele: atrial fib; bilateral carotid bruits) Lungs: Crackles, Other (decrease bs) Abdomen: Normal bowel sounds, Soft Extremities: No edema, Normal pulses Skin: No rashes Labs LABS Laboratory Tests Test 07/27/16 11:58 07/27/16 17:37 07/27/16 22:04 07/28/16 08:22 Glucose (Fingerstick) 223mg/dL (70-99) 185mg/dL (70-99) 211mg/dL (70-99) 107mg/dL (70-99) Test 07/28/16 10:58 Glucose (Fingerstick) 221mg/dL (70-99) Assessment and Plan Assessmemt and Plan Problems Medical Problems: (1) Difficulty breathing Status: Acute (2) Elevated brain natriuretic peptide (BNP) level Status: Acute (3) Fall Status: Acute (4) Hypoxia Status: Acute (5) Pneumonia Status: Acute (6) Urinary tract infection Status: Acute Problems: Comment Review of Relevant I have reviewed the following items ede (where applicable) has been applied. Labs Laboratory Tests Test 07/26/16 12:13 07/26/16 12:21 07/26/16 17:34 07/26/16 20:48 Body Fluid Glucose 232mg/dL (.) Body Fluid Total Protein 2.9g/dL (.) Body Fluid Lactate Dehydrogenase 85IU/L (.) Glucose (Fingerstick) 197mg/dL (70-99) 284mg/dL (70-99) 320mg/dL (70-99) Test 07/27/16 08:09 07/27/16 11:58 07/27/16 17:37 07/27/16 22:04 Glucose (Fingerstick) 176mg/dL (70-99) 223mg/dL (70-99) 185mg/dL (70-99) 211mg/dL (70-99) Test 07/28/16 08:22 07/28/16 10:58 Glucose (Fingerstick) 107mg/dL (70-99) 221mg/dL (70-99) Laboratory Tests Test 07/27/16 11:58 07/27/16 17:37 07/27/16 22:04 07/28/16 08:22 Glucose (Fingerstick) 223mg/dL (70-99) 185mg/dL (70-99) 211mg/dL (70-99) 107mg/dL (70-99) Test 07/28/16 10:58 Glucose (Fingerstick) 221mg/dL (70-99) Microbiology 07/26/16 Gram Stain - Final, Complete 07/24/16 Urine Culture - Final, Complete 07/24/16 Urine Culture Result 1 (TAJ) - Final, Complete 07/24/16 Antimicrobic Susceptibility - Final, Complete Medications Current Medications Ondansetron HCl (Zofran) 4 mg PRN Q8HRS PRN IV NAUSEA/VOMITING; Start 07/24/16 at 02:15; Stop 07/24/16 at 16:35; Status DC Morphine Sulfate 2 mg 2 mg PRN Q2HR PRN IV SEVERE PAIN; Start 07/24/16 at 02:15 ; Stop 07/25/16 at 02:14; Status DC Ceftriaxone Sodium (Rocephin 1gm Ivpb For Omni) 50 ml @ 100 mls/hr 1X ONCE IV Last administered on 07/24/16t 04:08; Start 07/24/16 at 03:00; Stop 07/24/16 at 03:29; Status DC Insulin Aspart (Novolog) 0-5 UNITS TIDWMEALS SQ Last administered on 07/27/16 13:47; Start 07/24/16 at 12:00 Dextrose 12.5 gm PRN Q15MIN PRN IV SEE COMMENTS; Start 07/24/16 at 08:45 Insulin Aspart (Novolog) 17 units 1X ONCE SQ Last administered on 07/24/16 09 :20; Start 07/24/16 at 09:00; Stop 07/24/16 at 09:06; Status DC Potassium Chloride (Klor-Con) 40 meq BID PO Last administered on 07/24/16 20: 16; Start 07/24/16 at 10:15; Stop 07/24/16 at 23:00; Status DC Acetaminophen (Tylenol) 325 mg PRN Q6HRS PRN PO MILD PAIN / TEMP; Start at 11:30 Acetaminophen/ Hydrocodone Bitart (Lortab 5/325) 1 tab PRN Q6HRS PRN PO MODERATE TO SEVERE PAIN Last administered on 07/24/16 12:06; Start 07/24/16 at 11:30; Stop 07/24/16 at 16:36; Status DC Hydralazine HCl (Apresoline) 10 mg PRN Q4HRS PRN IVP ELEVATED BP, SEE COMMENTS ; Start 07/24/16 at 11:30 Ondansetron HCl (Zofran) 4 mg PRN Q8HRS PRN IV NAUSEA/VOMITING; Start 07/24/16 at 11:30 Albuterol Sulfate (Ventolin Neb Soln) 2.5 mg PRN Q4HRS PRN NEB SHORTNESS OF BREATH; Start 07/24/16 at 11:30; Stop 07/24/16 at 16:35; Status DC Aspirin (Ana M Aspirin) 325 mg DAILY PO Last administered on 07/27/16 09:28; Start 07/24/16 at 12:00 Atorvastatin Calcium (Lipitor) 40 mg QHS PO Last administered on 07/27/16 22: 13; Start 07/24/16 at 21:00 Clopidogrel Bisulfate (Plavix) 75 mg DAILY PO Last administered on 07/27/16 09 :29; Start 07/24/16 at 12:00 Docusate Sodium (Colace) 100 mg PRN BID PRN PO CONSTIPATION Last administered on 07/25/16 08:58; Start 07/24/16 at 11:30 Furosemide (Lasix) 40 mg BID92 PO Last administered on 07/27/16 09:28; Start 07/24/16 at 11:30; Stop 07/27/16 at 10:45; Status DC Acetaminophen/ Hydrocodone Bitart (Lortab 5/325) 1 tab PRN Q4HRS PRN PO PAIN Last administered on 07/27/16 23:32; Start 07/24/16 at 11:30 Insulin Detemir (Levemir) 10 units HS SQ Last administered on 07/26/16 21:14; Start 07/24/16 at 21:00; Stop 07/27/16 at 07:08; Status DC Albuterol Sulfate (Ventolin Neb Soln) 2.5 mg PRN Q4HRS PRN NEB SHORTNESS OF BREATH; Start 07/24/16 at 11:45 Metoprolol Tartrate (Lopressor) 25 mg DAILY PO Last administered on 07/25/16 09:00; Start 07/24/16 at 12:00; Stop 07/25/16 at 13:10; Status DC Pantoprazole Sodium (Protonix) 40 mg DAILYAC PO Last administered on 07/27/16 09:29; Start 07/24/16 at 11:30 Trazodone HCl (Desyrel) 100 mg QHS PO Last administered on 07/27/16 22:13; Start 07/24/16 at 21:00 Vitamin D (Vitamin D3) 2,000 unit DAILY PO Last administered on 07/27/16 09:28 ; Start 07/24/16 at 12:00 Insulin Aspart (Novolog) 12 units TIDAC SQ Last administered on 07/27/16 16:30 ; Start 07/24/16 at 16:30 Magnesium Hydroxide (Milk Of Magnesia) 2,400 mg PRN DAILY PRN PO CONSTIPATION; Start 07/24/16 at 11:45 Non-Formulary Medication 5 mg HS PO ; Start 07/24/16 at 21:00; Stop 07/24/16 at 21:00; Status DC Furosemide (Lasix) 40 mg 1X ONCE IVP Last administered on 07/24/16 12:45; Start 07/24/16 at 12:30; Stop 07/24/16 at 12:31; Status DC Potassium Chloride (Klor-Con) 20 meq 1X ONCE PO Last administered on 12:44; Start 07/24/16 at 12:45; Stop 07/24/16 at 12:46; Status DC Insulin Detemir (Levemir) 12 units 1X ONCE SQ ; Start 07/24/16 at 18:15; Stop 07/24/16 at 18:20; Status DC Insulin Aspart (Novolog) 12 units 1X ONCE SQ Last administered on 07/24/16 18 :10; Start 07/24/16 at 18:30; Stop 07/24/16 at 18:32; Status DC Heparin Sodium (Porcine) 5,000 unit Q8HRS SQ Last administered on 07/28/16 07: 16; Start 07/24/16 at 22:00 Ciprofloxacin (Cipro) 250 mg BID PO Last administered on 07/26/16 14:34; Start 07/25/16 at 12:00; Stop 07/26/16 at 17:19; Status DC Metoprolol Tartrate 25 mg 25 mg BID PO Last administered on 07/27/16 09:28; Start 07/25/16 at 21:00 Sodium Chloride (Iv Sodium Chloride 0.9% 500ml Bag) 500 ml @ 500 mls/hr 1X ONCE IV Last administered on 07/25/16 14:00; Start 07/25/16 at 14:00; Stop 06/29 at 14:59; Status DC Furosemide (Lasix) 40 mg 1X ONCE IVP ; Start 07/25/16 at 14:45; Stop 07/25/16 at 14:48; Status DC Lidocaine/Sodium Bicarbonate (Buffered Lidocaine 1%) 20 ml STK-MED ONCE IJ ; Start 07/26/16 at 12:15; Stop 07/26/16 at 12:16; Status DC Fentanyl Citrate (Fentanyl 2ml Vial) 100 mcg STK-MED ONCE .ROUTE ; Start at 12:15; Stop 07/26/16 at 12:16; Status DC Midazolam HCl (Versed) 2 mg STK-MED ONCE .ROUTE ; Start 07/26/16 at 12:15; Stop 07/26/16 at 12:16; Status DC Lidocaine/Sodium Bicarbonate 20 ml 20 ml 1X ONCE IJ Last administered on 12:44; Start 07/26/16 at 13:00; Stop 07/26/16 at 13:01; Status DC Ceftriaxone Sodium/Sodium Chloride (Rocephin/Iv Sodium Chloride 0.9% 50ml) 50 ml @ 100 mls/hr Q24H IV Last administered on 07/27/16 19:38; Start 07/26/16 at 17:30 Insulin Detemir (Levemir) 15 units HS SQ Last administered on 07/27/16 22:20; Start 07/27/16 at 21:00 Furosemide (Lasix) 40 mg DAILY PO ; Start 07/28/16 at 09:00 Active Scripts Active Reported Colace (Docusate Sodium) 100 Mg Capsule 1 Cap PO BID PRN Milk Of Magnesia (Magnesium Hydroxide) 2,400 Mg/10 Ml Oral.susp 2,400 Mg PO PRN Q24HRS PRN Melatonin 5 Mg Tablet 5 Mg PO HS Duoneb 0.5-3(2.5) Mg/3 Ml (Albuterol/Ipratropium) 3 Ml Ampul.neb 3 Ml NEB PRN Q4HRS PRN Atorvastatin Calcium 40 Mg Tablet 1 Tab PO DAILY Hydrocodone-Apap 5-325 (Hydrocodone Bit/Acetaminophen) 1 Each Tablet 1 Tab PO PRN Q4HRS PRN Clopidogrel (Clopidogrel Bisulfate) 75 Mg Tablet 1 Tab PO DAILY Furosemide 40 Mg Tablet 40 Mg PO BID Metoprolol Tartrate 25 Mg Tablet 1 Tab PO DAILY Vitamin D-3 (Cholecalciferol (Vitamin D3)) 2,000 Unit Tablet 2,000 Unit PO DAILY Humalog (Insulin Lispro) 100 Unit/1 Ml Cartridge 12 Unit SQ TIDAC Pantoprazole Sodium 40 Mg Tablet.dr 1 Tab PO DAILY Trazodone Hcl 50 Mg Tablet 100 Mg PO QHS Levemir Flexpen (Insulin Detemir) 100 Unit/1 Ml Insuln.pen 10 Unit SQ HS Aspirin 325 Mg Tablet 1 Tab PO DAILY Vitals/I & O Vital Sign - Last 24 Hours 07/27/16 07/27/16 07/27/16 07/27/16 11:22 15:11 15:18 19:25 Temp 98.0 97.7 97.7 98.0 97.7 97.7 Pulse 79 87 78 86 Resp 20 18 20 18 B/P 112/65 112/56 122/47 115/56 Pulse Ox 97 96 94 95 O2 Delivery Nasal Cannula Nasal Cannula Nasal Cannula Nasal Cannula O2 Flow Rate 4.0 4.0 4.0 4.0 07/27/16 07/27/16 07/27/16 07/27/16 19:42 20:00 21:00 23:07 Temp 97.7 97.7 Pulse 86 81 Resp 18 24 B/P 115/56 115/57 Pulse Ox 95 O2 Delivery Nasal Cannula Nasal Cannula Nasal Cannula O2 Flow Rate 4.0 4.0 4.0 07/27/16 07/28/16 07/28/16 07/28/16 23:32 00:32 03:00 07:58 Temp 97.9 97.9 Pulse 84 95 Resp 22 18 B/P 110/55 135/54 Pulse Ox 95 96 O2 Delivery Nasal Cannula Nasal Cannula Nasal Cannula Nasal Cannula O2 Flow Rate 4.0 4.0 4.0 4.0 07/28/16 07/28/16 08:00 10:58 Temp 97.6 97.6 Pulse 81 Resp 20 B/P 119/51 Pulse Ox 98 O2 Delivery Nasal Cannula Nasal Cannula O2 Flow Rate 4.0 4.0 Intake and Output 07/27/16 07/27/16 07/28/16 15:00 23:00 07:00 Intake Total 110 ml Output Total 950 ml 800 ml Balance -950 ml -690 ml ZACH PETERSON MD Jul 28, 2016 11:06
[2016-07-28] MEDS: INSULIN ASPART 300 UNITS/3 ML INSULN.PEN SQ SCH ×6 (11:30→17:52)
[2016-07-28] MEDS: CLOPIDOGREL BISULFATE 75 MG TABLET PO SCH (12:09)
[2016-07-28] MEDS: ASPIRIN 325 MG TABLET PO SCH (12:09)
[2016-07-28] MEDS: PANTOPRAZOLE 40 MG TABLET. PO SCH (12:09)
[2016-07-28] MEDS: CHOLECALCIFEROL (VITAMIN D3) 1,000 UNIT TABLET PO SCH (12:09)
[2016-07-28] MEDS: FUROSEMIDE 40 MG TABLET PO SCH (12:10)
[2016-07-28] MEDS: METOPROLOL TART IMMED RELEASE 25 MG TABLET PO SCH (12:10)
[2016-07-28 15:55] VITALS: BP 131/58
[2016-07-28] MEDS ORDERED: traZODone 50 MG TABLET. PO PRN (16:30)
[2016-07-28] MEDS ORDERED: HYDROCODONE/APAP 5/325MG TABLET. PO PRN (16:30)
[2016-07-28] MEDS ORDERED: POLYETHYLENE GLYCOL 3350 17 GM PACKET. PO PRN (17:00)
[2016-07-28] MEDS: CEFTRIAXONE SODIUM 1 GM in IV NORMAL SALINE 50ML 50 ML IV SCH (17:50)
[2016-07-28 19:35] VITALS: BP 124/63
[2016-07-28] MEDS: INSULIN DETEMIR 300 UNITS/3 ML INSULN.PEN. SQ SCH (21:01)
[2016-07-28] MEDS: ATORVASTATIN CALCIUM 40 MG TABLET. PO SCH (21:02)
[2016-07-28 23:20] VITALS: BP 136/67
[2016-07-29 02:55] VITALS: BP 135/64
[2016-07-29 07:23] VITALS: BP 137/60
[2016-07-29] MEDS: HEPARIN PF for SUB-Q USE 5,000 UNIT/0.5 ML VIAL. SQ SCH ×3 (07:47→22:34)
[2016-07-29] MEDS: CHOLECALCIFEROL (VITAMIN D3) 1,000 UNIT TABLET PO SCH (08:46)
[2016-07-29] MEDS: PANTOPRAZOLE 40 MG TABLET. PO SCH (08:46)
[2016-07-29] MEDS: CLOPIDOGREL BISULFATE 75 MG TABLET PO SCH (08:46)
[2016-07-29] MEDS: FUROSEMIDE 40 MG TABLET PO SCH (08:46)
[2016-07-29] MEDS: ASPIRIN 325 MG TABLET PO SCH (08:46)
[2016-07-29] MEDS: INSULIN ASPART 300 UNITS/3 ML INSULN.PEN SQ SCH ×6 (08:54→17:45)
[2016-07-29] MEDS ORDERED: METOPROLOL TART IMMED RELEASE 25 MG TABLET PO SCH (09:00)
--- NOTE | 2016-07-29 10:23 | PDOC ---
CARDIO Progress Notes Date and Time Date of Service 07/29/2016 Time of Evaluation 1022 Subjective Subjective: No Chest Pain, No shortness of breath, No Palpitations, No Dizziness, Other (slept through visit) Vitals Vitals Vital Signs Date Time Temp Pulse Resp B/P Pulse Ox O2 Delivery O2 Flow Rate FiO2 07/29/16 08:47 83 137/60 07/29/16 08:00 Nasal Cannula 4.0 07/29/16 07:23 97.7 19 97 97.7 Weight Weight [ ] Input and Output Intake and Output Intake and Output 07/29/16 07:00 Intake Total 770 ml Output Total 1600 ml Balance -830 ml Intake Oral 770 ml Output Urine Total 1600 ml Laboratory Labs Laboratory Tests Test 07/28/16 10:58 07/28/16 16:55 07/28/16 20:36 07/29/16 07:25 Glucose (Fingerstick) 221mg/dL (70-99) 256mg/dL (70-99) 235mg/dL (70-99) 293mg/dL (70-99) Microbiology Micro Microbiology 07/26/16 Gram Stain - Final, Complete 07/24/16 Urine Culture - Final, Complete 07/24/16 Urine Culture Result 1 (TAJ) - Final, Complete 07/24/16 Antimicrobic Susceptibility - Final, Complete Case Discussion Case Discussed with: Family Physical Exam HEENT: Neck Supple W Full Motion Chest: Symmetric LUNGS: Other (diminished anteriorly) Heart: S1S2, no murmurs, irregularly irregular, other (tele: atrial fib; PPM left pectoral region) Abdomen: Soft N/T Extremities: No Edema Neurology: alert, follow commands Assessment Assessment 1. ? syncope vs mechanical fall suspect orthostasis as 61 mm drop from lying to standing - ? related to trazodone - known to cause orthostasis & dosage has been reduced no evidence of dysrhythmias on PPM interrogation other than known atrial fib echo completed with preserved LV function and large fibrinous left pleural effusion & underwent thoracentesis on 05/26/2017 2. atrial fibrillation, permanent rate controlled with BB - confirmed BID dosing of metoprolol tartrate not on OAC - ? due to fall risk continue DAPT for now 3. CHF, acute on chronic diastolic bilateral pleural effusions and large left pleural effusion seen on echo - underwent thoracentesis unable to aggressively diurese due to orthostasis 4. 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 ? COPD chronic home O2 use hypoxic after fall cough productive yellow sputm - influenza negative defer to PULM 6. HTN control with meds 7. HLD LDLs = 67 on statin therapy 8. GERD continue home PPI 9. history of bladder and prostate cancer ileal conduit 10. orthostatic hypotension likely etiology of fall will decrease BB dose to 12.5 mg BID - not recommended to dose metoprolol tartrate once daily - if once daily dosing preferred - then consider use of metoprolol succinate (which is a sustained release preparation) add compression hose; may need midodrine Will follow peripherally. Palliative care consult pending. Please contact for further assistance. JENARO HASSAN APRN Jul 29, 2016 10:22
--- NOTE | 2016-07-29 11:08 | PDOC ---
PULMONARY PROGRESS NOTES Subjective weak, has sob, better s/p l thoracentesis, still on 5 litres Vitals Vital Signs Date Time Temp Pulse Resp B/P Pulse Ox O2 Delivery O2 Flow Rate FiO2 07/29/16 08:47 83 137/60 07/29/16 08:00 Nasal Cannula 4.0 07/29/16 07:23 97.7 19 97 97.7 Comments ros as above other sys otherwise neg General: Alert, No acute distress HEENT: Other (nose throat clear, nc at perrl) Lungs: Other (decrease bs) Cardiovascular: S1, S2 Abdomen: Soft, Non-tender, Other (no mass) Neuro Exam: Alert Extremities: Other (1+edema) Skin: Warm Labs Laboratory Tests Test 07/27/16 11:58 07/27/16 17:37 07/27/16 22:04 07/28/16 08:22 Glucose (Fingerstick) 223mg/dL (70-99) 185mg/dL (70-99) 211mg/dL (70-99) 107mg/dL (70-99) Test 07/28/16 10:58 07/28/16 16:55 07/28/16 20:36 07/29/16 07:25 Glucose (Fingerstick) 221mg/dL (70-99) 256mg/dL (70-99) 235mg/dL (70-99) 293mg/dL (70-99) Laboratory Tests Test 07/28/16 16:55 07/28/16 20:36 07/29/16 07:25 Glucose (Fingerstick) 256mg/dL (70-99) 235mg/dL (70-99) 293mg/dL (70-99) Medications Active Scripts Medications Dose Route/Sig Days Date Category Colace (Docusate Sodium) 100 Mg Capsule 1 Cap PO BID PRN 07/24/16 Reported Milk Of Magnesia (Magnesium Hydroxide) 2,400 Mg/10 Ml Oral.susp 2,400 Mg PO PRN Q24HRS PRN 07/24/16 Reported Melatonin 5 Mg Tablet 5 Mg PO HS 07/24/16 Reported Duoneb 0.5-3(2.5) Mg/3 Ml (Albuterol/Ipratropium) 3 Ml Ampul.neb 3 Ml NEB PRN Q4HRS PRN 07/24/16 Reported Atorvastatin Calcium 40 Mg Tablet 1 Tab PO DAILY 07/24/16 Reported Hydrocodone-Apap 5-325 (Hydrocodone Bit/Acetaminophen) 1 Each Tablet 1 Tab PO PRN Q4HRS PRN 07/24/16 Reported Clopidogrel (Clopidogrel Bisulfate) 75 Mg Tablet 1 Tab PO DAILY 07/24/16 Reported Furosemide 40 Mg Tablet 40 Mg PO BID 07/24/16 Reported Metoprolol Tartrate 25 Mg Tablet 1 Tab PO DAILY 07/24/16 Reported Vitamin D-3 (Cholecalciferol (Vitamin D3)) 2,000 Unit Tablet 2,000 Unit PO DAILY 07/24/16 Reported Humalog (Insulin Lispro) 100 Unit/1 Ml Cartridge 12 Unit SQ TIDAC 07/24/16 Reported Pantoprazole Sodium 40 Mg Tablet.dr 1 Tab PO DAILY 07/24/16 Reported Trazodone Hcl 50 Mg Tablet 100 Mg PO QHS 05/11/14 Reported Levemir Flexpen (Insulin Detemir) 100 Unit/1 Ml Insuln.pen 10 Unit SQ HS 05/11/14 Reported Aspirin 325 Mg Tablet 1 Tab PO DAILY 05/11/14 Reported Comments cxr reviewed, interval left thoracentesis. No post procedure pneumothorax identified. Impression . 1. Acute hypoxic respiratory failure secondary to diastolic congestive heart failure. 2. Abnormal chest x-ray with bilateral interstitial infiltrates, more on the left than on the right and bilateral pleural effusion and more on the left than on the right. , s/p thoracentesis on the left side, transudate, 2/2 to CHF, fu pf studies 3. No significant history of tobacco use. 4. History of prior left-sided thoracentesis in February, it was not a hemothorax. 5. Syncopal episode, present on admission. Cardiology is following. Plan . 1. cont diuresis. 2. Replace potassium.as needed 3. thoracentesis 07/26, will do ct chest to assess for organized effusion 4. o2 titration. 5. Follow cardiology recommendation. 6. pt ot 7. sputum cx discussed w pt and his and daughter CHISHOLMKEMI BRUNO Rajinder MARINELLI Jul 29, 2016 11:08
[2016-07-29 11:18] VITALS: BP 133/59
--- NOTE | 2016-07-29 12:13 | PDOC ---
PROGRESS NOTES Chief Complaint Chief Complaint - Mechanical fall vs syncope - Atrial fibrillation, currently rate controlled with pacemaker present - Coronary artery disease and CABG history. - Chronic obstructive pulmonary disease. - Hypertension. - Hypoxic respiratory failure - Pleural effusions s/p thoracentesis - Hyperlipidemia. - Gastroesophageal reflux disease. - UTI with culture showing E coli - Physical debility - Acute on Chronic CHF with EF 60% - History bladder and prostate cancer with urostomy in place History of Present Illness History of Present Illness 85 year old male examined with present at bedside. Patient still reports feeling weak and relates that patient's BP drops 40-60 points when going from seated to standing. She feels this could be a cause of his fall and states that she does not want him to leave hospital until that is better controlled because she knows she will not be able to provide sufficient care for him should that cause him to have another fall. Patient reports feeling clammy today but denies fevers. Vitals Vitals Vital Signs Date Time Temp Pulse Resp B/P Pulse Ox O2 Delivery O2 Flow Rate FiO2 07/29/16 11:18 97.7 96 20 133/59 91 Nasal Cannula 5.0 97.7 Physical Exam General: Alert, Oriented X3, Cooperative, No acute distress Heart: Normal S1, Normal S2, Other (IRRR; tele: atrial fib; bilateral carotid bruits) Lungs: Other (Decreased bs L>R) Abdomen: Normal bowel sounds, Soft Extremities: No clubbing, No edema, Normal pulses Skin: No rashes, No breakdown, No significant lesion Labs LABS Laboratory Tests Test 07/28/16 16:55 07/28/16 20:36 07/29/16 07:25 Glucose (Fingerstick) 256mg/dL (70-99) 235mg/dL (70-99) 293mg/dL (70-99) Review of Systems Review of Systems Some SOA Orthostasis with dizziness and lightheadedness Clammy Assessment and Plan Assessmemt and Plan Assessment: - Mechanical fall vs syncope - Atrial fibrillation, currently rate controlled with pacemaker present - Coronary artery disease and CABG history. - Chronic obstructive pulmonary disease. - Hypertension. - Hypoxic respiratory failure - Pleural effusions s/p thoracentesis with negative gram stain - Hyperlipidemia. - Gastroesophageal reflux disease. - UTI with culture showing E coli - Physical debility - Acute on Chronic CHF with EF 60% - History bladder and prostate cancer with urostomy in place Plan: - Patient more alert today. Cautious use of narcotics and trazodone - Await palliative care consult and further input from family - Continue IV Rocephin - Defer to cardiology and pulmonology for diuresis - Continue oxygen supplementation - Recheck labs - PT/OT as tolerated - Appreciate subspecialty input Problems: Comment Review of Relevant I have reviewed the following items ede (where applicable) has been applied. Labs Laboratory Tests Test 07/27/16 17:37 07/27/16 22:04 07/28/16 08:22 07/28/16 10:58 Glucose (Fingerstick) 185mg/dL (70-99) 211mg/dL (70-99) 107mg/dL (70-99) 221mg/dL (70-99) Test 07/28/16 16:55 07/28/16 20:36 07/29/16 07:25 Glucose (Fingerstick) 256mg/dL (70-99) 235mg/dL (70-99) 293mg/dL (70-99) Laboratory Tests Test 07/28/16 16:55 07/28/16 20:36 07/29/16 07:25 Glucose (Fingerstick) 256mg/dL (70-99) 235mg/dL (70-99) 293mg/dL (70-99) Microbiology 07/26/16 Gram Stain - Final, Complete 07/28/16 Gram Stain - Final, Complete 07/24/16 Urine Culture - Final, Complete 07/24/16 Urine Culture Result 1 (TAJ) - Final, Complete 07/24/16 Antimicrobic Susceptibility - Final, Complete Medications Current Medications Ondansetron HCl (Zofran) 4 mg PRN Q8HRS PRN IV NAUSEA/VOMITING; Start 07/24/16 at 02:15; Stop 07/24/16 at 16:35; Status DC Morphine Sulfate 2 mg 2 mg PRN Q2HR PRN IV SEVERE PAIN; Start 07/24/16 at 02:15 ; Stop 07/25/16 at 02:14; Status DC Ceftriaxone Sodium (Rocephin 1gm Ivpb For Omni) 50 ml @ 100 mls/hr 1X ONCE IV Last administered on 07/24/16t 04:08; Start 07/24/16 at 03:00; Stop 07/24/16 at 03:29; Status DC Insulin Aspart (Novolog) 0-5 UNITS TIDWMEALS SQ Last administered on 07/29/16 08:55; Start 07/24/16 at 12:00 Dextrose 12.5 gm PRN Q15MIN PRN IV SEE COMMENTS; Start 07/24/16 at 08:45 Insulin Aspart (Novolog) 17 units 1X ONCE SQ Last administered on 07/24/16 09 :20; Start 07/24/16 at 09:00; Stop 07/24/16 at 09:06; Status DC Potassium Chloride (Klor-Con) 40 meq BID PO Last administered on 07/24/16 20: 16; Start 07/24/16 at 10:15; Stop 07/24/16 at 23:00; Status DC Acetaminophen (Tylenol) 325 mg PRN Q6HRS PRN PO MILD PAIN / TEMP; Start at 11:30 Acetaminophen/ Hydrocodone Bitart (Lortab 5/325) 1 tab PRN Q6HRS PRN PO MODERATE TO SEVERE PAIN Last administered on 07/24/16 12:06; Start 07/24/16 at 11:30; Stop 07/24/16 at 16:36; Status DC Hydralazine HCl (Apresoline) 10 mg PRN Q4HRS PRN IVP ELEVATED BP, SEE COMMENTS ; Start 07/24/16 at 11:30 Ondansetron HCl (Zofran) 4 mg PRN Q8HRS PRN IV NAUSEA/VOMITING; Start 07/24/16 at 11:30 Albuterol Sulfate (Ventolin Neb Soln) 2.5 mg PRN Q4HRS PRN NEB SHORTNESS OF BREATH; Start 07/24/16 at 11:30; Stop 07/24/16 at 16:35; Status DC Aspirin (Ana M Aspirin) 325 mg DAILY PO Last administered on 07/29/16 08:46; Start 07/24/16 at 12:00 Atorvastatin Calcium (Lipitor) 40 mg QHS PO Last administered on 07/28/16 21: 02; Start 07/24/16 at 21:00 Clopidogrel Bisulfate (Plavix) 75 mg DAILY PO Last administered on 07/29/16 08 :46; Start 07/24/16 at 12:00 Docusate Sodium (Colace) 100 mg PRN BID PRN PO CONSTIPATION Last administered on 07/25/16 08:58; Start 07/24/16 at 11:30 Furosemide (Lasix) 40 mg BID92 PO Last administered on 07/27/16 09:28; Start 07/24/16 at 11:30; Stop 07/27/16 at 10:45; Status DC Acetaminophen/ Hydrocodone Bitart (Lortab 5/325) 1 tab PRN Q4HRS PRN PO PAIN Last administered on 07/27/16 23:32; Start 07/24/16 at 11:30; Stop 07/28/16 at 16:16; Status DC Insulin Detemir (Levemir) 10 units HS SQ Last administered on 07/26/16 21:14; Start 07/24/16 at 21:00; Stop 07/27/16 at 07:08; Status DC Albuterol Sulfate (Ventolin Neb Soln) 2.5 mg PRN Q4HRS PRN NEB SHORTNESS OF BREATH; Start 07/24/16 at 11:45 Metoprolol Tartrate (Lopressor) 25 mg DAILY PO Last administered on 07/25/16 09:00; Start 07/24/16 at 12:00; Stop 07/25/16 at 13:10; Status DC Pantoprazole Sodium (Protonix) 40 mg DAILYAC PO Last administered on 07/29/16 08:46; Start 07/24/16 at 11:30 Trazodone HCl (Desyrel) 100 mg QHS PO Last administered on 07/27/16 22:13; Start 07/24/16 at 21:00; Stop 07/28/16 at 16:16; Status DC Vitamin D (Vitamin D3) 2,000 unit DAILY PO Last administered on 07/29/16 08:46 ; Start 07/24/16 at 12:00 Insulin Aspart (Novolog) 12 units TIDAC SQ Last administered on 07/29/16 08:54 ; Start 07/24/16 at 16:30 Magnesium Hydroxide (Milk Of Magnesia) 2,400 mg PRN DAILY PRN PO CONSTIPATION; Start 07/24/16 at 11:45 Non-Formulary Medication 5 mg HS PO ; Start 07/24/16 at 21:00; Stop 07/24/16 at 21:00; Status DC Furosemide (Lasix) 40 mg 1X ONCE IVP Last administered on 07/24/16 12:45; Start 07/24/16 at 12:30; Stop 07/24/16 at 12:31; Status DC Potassium Chloride (Klor-Con) 20 meq 1X ONCE PO Last administered on 12:44; Start 07/24/16 at 12:45; Stop 07/24/16 at 12:46; Status DC Insulin Detemir (Levemir) 12 units 1X ONCE SQ ; Start 07/24/16 at 18:15; Stop 07/24/16 at 18:20; Status DC Insulin Aspart (Novolog) 12 units 1X ONCE SQ Last administered on 07/24/16 18 :10; Start 07/24/16 at 18:30; Stop 07/24/16 at 18:32; Status DC Heparin Sodium (Porcine) 5,000 unit Q8HRS SQ Last administered on 07/29/16 07: 47; Start 07/24/16 at 22:00 Ciprofloxacin (Cipro) 250 mg BID PO Last administered on 07/26/16 14:34; Start 07/25/16 at 12:00; Stop 07/26/16 at 17:19; Status DC Metoprolol Tartrate 25 mg 25 mg BID PO Last administered on 07/28/16 12:10; Start 07/25/16 at 21:00; Stop 07/28/16 at 16:16; Status DC Sodium Chloride (Iv Sodium Chloride 0.9% 500ml Bag) 500 ml @ 500 mls/hr 1X ONCE IV Last administered on 07/25/16 14:00; Start 07/25/16 at 14:00; Stop 06/29 at 14:59; Status DC Furosemide (Lasix) 40 mg 1X ONCE IVP ; Start 07/25/16 at 14:45; Stop 07/25/16 at 14:48; Status DC Lidocaine/Sodium Bicarbonate (Buffered Lidocaine 1%) 20 ml STK-MED ONCE IJ ; Start 07/26/16 at 12:15; Stop 07/26/16 at 12:16; Status DC Fentanyl Citrate (Fentanyl 2ml Vial) 100 mcg STK-MED ONCE .ROUTE ; Start at 12:15; Stop 1/13/17 at 12:16; Status DC Midazolam HCl (Versed) 2 mg STK-MED ONCE .ROUTE ; Start 07/26/16 at 12:15; Stop 07/26/16 at 12:16; Status DC Lidocaine/Sodium Bicarbonate 20 ml 20 ml 1X ONCE IJ Last administered on 12:44; Start 07/26/16 at 13:00; Stop 07/26/16 at 13:01; Status DC Ceftriaxone Sodium/Sodium Chloride (Rocephin/Iv Sodium Chloride 0.9% 50ml) 50 ml @ 100 mls/hr Q24H IV Last administered on 07/28/16 17:50; Start 07/26/16 at 17:30 Insulin Detemir (Levemir) 15 units HS SQ Last administered on 07/28/16 21:01; Start 07/27/16 at 21:00 Furosemide (Lasix) 40 mg DAILY PO Last administered on 07/29/16 08:46; Start 07/28/16 at 09:00 Trazodone HCl (Desyrel) 50 mg PRN QHS PRN PO INSOMNIA; Start 07/28/16 at 16:30 Acetaminophen/ Hydrocodone Bitart (Lortab 5/325) 1 tab PRN Q6HRS PRN PO PAIN Last administered on 07/28/16 23:27; Start 07/28/16 at 16:30 Metoprolol Tartrate (Lopressor) 25 mg DAILY PO Last administered on 07/29/16 08:47; Start 07/29/16 at 09:00 Polyethylene Glycol (miraLAX PACKET) 17 gm PRN BID PRN PO CONSTIPATION; Start 07/28/16 at 17:00 Active Scripts Active Reported Colace (Docusate Sodium) 100 Mg Capsule 1 Cap PO BID PRN Milk Of Magnesia (Magnesium Hydroxide) 2,400 Mg/10 Ml Oral.susp 2,400 Mg PO PRN Q24HRS PRN Melatonin 5 Mg Tablet 5 Mg PO HS Duoneb 0.5-3(2.5) Mg/3 Ml (Albuterol/Ipratropium) 3 Ml Ampul.neb 3 Ml NEB PRN Q4HRS PRN Atorvastatin Calcium 40 Mg Tablet 1 Tab PO DAILY Hydrocodone-Apap 5-325 (Hydrocodone Bit/Acetaminophen) 1 Each Tablet 1 Tab PO PRN Q4HRS PRN Clopidogrel (Clopidogrel Bisulfate) 75 Mg Tablet 1 Tab PO DAILY Furosemide 40 Mg Tablet 40 Mg PO BID Metoprolol Tartrate 25 Mg Tablet 1 Tab PO DAILY Vitamin D-3 (Cholecalciferol (Vitamin D3)) 2,000 Unit Tablet 2,000 Unit PO DAILY Humalog (Insulin Lispro) 100 Unit/1 Ml Cartridge 12 Unit SQ TIDAC Pantoprazole Sodium 40 Mg Tablet.dr 1 Tab PO DAILY Trazodone Hcl 50 Mg Tablet 100 Mg PO QHS Levemir Flexpen (Insulin Detemir) 100 Unit/1 Ml Insuln.pen 10 Unit SQ HS Aspirin 325 Mg Tablet 1 Tab PO DAILY Vitals/I & O Vital Sign - Last 24 Hours 07/28/16 07/28/16 07/28/16 07/28/16 12:10 15:55 19:35 20:00 Temp 97.6 97.6 97.6 97.6 Pulse 103 79 98 Resp 18 B/P 140/59 131/58 124/63 Pulse Ox 93 96 O2 Delivery Nasal Cannula Nasal Cannula Nasal Cannula O2 Flow Rate 4.0 4.0 4.0 07/28/16 07/28/16 07/29/16 07/29/16 23:20 23:27 00:27 02:55 Temp 97.9 97.8 97.9 97.8 Pulse 95 76 Resp 18 18 16 18 B/P 136/67 135/64 Pulse Ox 98 97 O2 Delivery Nasal Cannula Nasal Cannula Nasal Cannula O2 Flow Rate 4.0 4.0 4.0 07/29/16 07/29/16 07/29/16 07/29/16 07:23 08:00 08:47 11:18 Temp 97.7 97.7 97.7 97.7 Pulse 78 83 96 Resp 20 B/P 137/60 137/60 133/59 Pulse Ox 97 91 O2 Delivery Nasal Cannula Nasal Cannula Nasal Cannula O2 Flow Rate 4.0 4.0 5.0 Intake and Output 07/28/16 07/28/16 07/29/16 15:00 23:00 07:00 Intake Total 150 ml 620 ml Output Total 800 ml 800 ml Balance -650 ml -180 ml DAVID SALOMON III DO Jul 29, 2016 12:13
--- NOTE | 2016-07-29 13:21 | PATHOLOGY ---
CYTOPATHOLOGY REPORT CLINICAL HISTORY: Left pleural effusion. SPECIMEN(S) RECEIVED: A.Pleural fluid, Left FINAL DIAGNOSIS: Left pleural fluid, ThinPrep and cell block: - No malignant cells identified. - Few reactive mesothelial cells and scattered inflammatory cells identified. (JPM:; d/t: 07/29/16) PATHOLOGIST: Elfego Malcolm M.D. REPORT ELECTRONICALLY SIGNED BY: Elfego Malcolm M.D. DATE/TIME: 07/29/2016 13:21 GROSS PATHOLOGY: A. Pleural fluid, Left: The specimen is submitted unfixed, labeled "Olivier Ramirez". Received by the Cytology Department is 20 mL of clear yellow fluid. One ThinPrep slide and a cell block were prepared. (clt 07.26.2016) ALTERATIONS SUPERVISOR(S): J CARLOS Kay(ASCP) INITIAL CPT CODE(S): A; 89933, 39663 Professional services performed by [facility] [address] Technical services performed by [facility] at [address] [place] [address], [address], [place] [address]. PATIENT: OLIVIER RAMIREZ /AGE: 4 1930 (Age: 85) SEX: M PATIENT #: [id number] ALT CASE #: SPECIMEN COLLECTION DATE: 07/26/2016 SPECIMEN RECEIVED DATE: 07/26/[address] [facility] [address] [place] [address], [address] [place] [address] PHONE: [phone] DIRECTOR: Miller Cox M.D. * * * END OF REPORT * * *
--- NOTE | 2016-07-29 14:44 | RAD ---
Indication evaluate and characterize effusion. Noncontrast images of the chest were obtained and are compared to an examination just over 10 years earlier. Note is made of several recent plain film examinations of the chest. Imaging through the upper abdomen shows no acute finding. There is cholelithiasis. There is pleural calcification suggesting prior asbestos exposure. This is most pronounced at the right lung base. No acute finding is suggested associated with the thoracic aorta. Extensive coronary artery calcification is noted. Significant hilar or mediastinal adenopathy is not seen. There are multiple calcified right hilar and subcarinal. There is a left pleural effusion which does not appear to be significantly complicated. Definite areas of loculation are not seen. There is some volume loss at the left lung base most compatible with passive atelectasis associated with the pleural fluid. A dominant soft tissue mass in either lung is not seen. There is some volume loss at the right lung base compatible with scarring. It is very similar to the previous exam. IMPRESSION: Left pleural effusion. Significant loculation of the fluid is not suggested on this exam. Minimal volume loss at the left lung base likely reflecting passive atelectasis associated with the pleural fluid. Pleural calcifications suggesting prior asbestos exposure. Chronic volume loss, mild, at the right lung base compatible with scarring Cholelithiasis PQRS Compliance Statement: One or more of the following individualized dose reduction techniques were utilized for this examination: 1. Automated exposure control 2. Adjustment of the mA and/or kV according to patient size 3. Use of iterative reconstruction technique
[2016-07-29 15:16] VITALS: BP 145/69
--- NOTE | 2016-07-29 16:56 | PDOC2 ---
PALLIATIVE CARE Palliative Care Note Palliative Care Consult requested by Dr. Barton to address goals of care. Patient alert. Sitting up in bed. Visiting with and daughter. Reviewed medical condition: syncopal episode with fall, at fib, CHF, CAD ?COPD; DM; HTN; HLD, GERD; history of bladder and prostate cancer; history of orthostasis hypotension Met with Jil and dtrJim Ayalailya, one daughter unable to attend. Discussed Code Status: Patient and understood he was DNR/DNI. "It is in my AD" Patient requests DNR /DNI status. Understands that without this attempt likely he would . Copy of AD requested. Discussed goals of care. Continue current aggressive care vs comfort care vs. limitation to aggressive care. Discussed SNU for strengthening. Patient adamant about wanting to go home. "I'm tired and just want to go home " I don't want to go to rehabilitation. and daughter supportive of his wishes. Discussed option of going home with Hospice vs Palliative Home Health. Patient does not want to keep returning to the hospital. "I just want to be kept comfortable." and daughter concerned about caregiving at home. not able to handle patient's current care needs especially when he tries to get up" Discussed hiring home care givers along with Hospice Support for goals of comfort and added care needs. Valerie TRIPP will assist with selection of Hospice and Caregivers. Outside the Hospital DNR/DNI signed by patient Mela MCCAULEY will contact MD for orders. Plan : Home with Hospice when discharged Patient requests DNR/DNI DME: Hospital Bed, Arcadio, MARISELAARANZA Jul 29, 2016 16:56
[2016-07-29] MEDS: CEFTRIAXONE SODIUM 1 GM in IV NORMAL SALINE 50ML 50 ML IV SCH (17:38)
[2016-07-29 19:35] VITALS: BP 146/69
[2016-07-29] MEDS: METOPROLOL TART IMMED RELEASE 25 MG TABLET PO SCH (20:26)
[2016-07-29] MEDS: ATORVASTATIN CALCIUM 40 MG TABLET. PO SCH (20:26)
[2016-07-29] MEDS: INSULIN DETEMIR 300 UNITS/3 ML INSULN.PEN. SQ SCH (20:29)
[2016-07-29 22:30] VITALS: BP 152/74
[2016-07-30 03:25] VITALS: BP 148/71
[2016-07-30 03:52] LABS: BASO % 0 % (0-3); EOS % 2 % (0-3); HEMATOCRIT 32.9 % (39.0-53.0); HEMOGLOBIN 10.6 g/dL (13.0-17.5); LYMPH # 0.5 x10^3/uL (1.0-4.8); LYMPH % 10 % (24-48); MEAN CORPUSCULAR HEMOGLOBIN 33 pg (25-35); MEAN CORPUSCULAR HGB CONC 32 g/dL (31-37); MEAN CORPUSCULAR VOLUME 101 fL (79-100); MONO % 6 % (0-9); NEUT % 82 % (31-73); PLATELET COUNT 150 x10^3/uL (140-400); RED BLOOD COUNT 3.25 x10^6/uL (4.30-5.70); RED CELL DISTRIBUTION WIDTH 14.3 % (11.5-14.5); WHITE BLOOD COUNT 5.8 x10^3/uL (4.0-11.0)
[2016-07-30 04:04] LABS: BLOOD UREA NITROGEN 27 mg/dL (8-26); CALCIUM 9.1 mg/dL (8.5-10.1); CHLORIDE 102 mmol/L (98-107); CREATININE 0.7 mg/dL (0.7-1.3); GFR 107.2; GLUCOSE 282 mg/dL (70-99); POTASSIUM 4.1 mmol/L (3.5-5.1); SODIUM 147 mmol/L (136-145)
[2016-07-30 04:05] LABS: ANION GAP 0 (6-14)
[2016-07-30 04:06] LABS: CARBON DIOXIDE > 45 mmol/L (21-32)
[2016-07-30] MEDS: INSULIN ASPART 300 UNITS/3 ML INSULN.PEN SQ SCH ×6 (07:30→16:36)
[2016-07-30 07:46] VITALS: BP 135/70
[2016-07-30 11:30] VITALS: BP 130/61
[2016-07-30] MEDS: FUROSEMIDE 40 MG TABLET PO SCH (11:30)
[2016-07-30] MEDS: ASPIRIN 325 MG TABLET PO SCH (11:30)
[2016-07-30] MEDS: CHOLECALCIFEROL (VITAMIN D3) 1,000 UNIT TABLET PO SCH (11:30)
[2016-07-30] MEDS: CLOPIDOGREL BISULFATE 75 MG TABLET PO SCH (11:30)
[2016-07-30 11:31] VITALS: BP 135/70
[2016-07-30] MEDS: METOPROLOL TART IMMED RELEASE 25 MG TABLET PO SCH (11:31)
[2016-07-30] MEDS: PANTOPRAZOLE 40 MG TABLET. PO SCH (11:31)
--- NOTE | 2016-07-30 11:33 | PDOC ---
PROGRESS NOTES Chief Complaint Chief Complaint - Mechanical fall vs syncope - Hypoxic respiratory failure - Chronic obstructive pulmonary disease. - Atrial fibrillation, currently rate controlled with pacemaker present - Coronary artery disease and CABG history. - Hypertension. - Pleural effusions s/p thoracentesis - Hyperlipidemia. - Gastroesophageal reflux disease. - UTI with culture showing E coli - Physical debility - Acute on Chronic CHF with EF 60% - History bladder and prostate cancer with urostomy in place History of Present Illness History of Present Illness Patient lying down in bed when evaluated this AM, with and daughter at bedside. Patient wants to go home. Representatives from [facility] were in with the pt and family this AM. Coordinated plan of care with hospice team and family. Pt's complicated medical history was discussed once more with an emphasis on the pt's multifactorial respiratory failure. Multiple comorbidities also discussed, including CAD, CHF, bladder cancer, DM, etc. Vitals Vitals Vital Signs Date Time Temp Pulse Resp B/P Pulse Ox O2 Delivery O2 Flow Rate FiO2 07/30/16 07:46 97.8 92 17 135/70 98 Nasal Cannula 5.0 97.8 Physical Exam General: Alert, Oriented X3, Cooperative, No acute distress Heart: Normal S1, Normal S2, Other (IRRR; tele: atrial fib; bilateral carotid bruits) Lungs: Other (Decreased bs L>R) Abdomen: Normal bowel sounds, Soft Extremities: No clubbing, No edema, Normal pulses Skin: No rashes, No breakdown, No significant lesion Labs LABS Laboratory Tests Test 07/29/16 12:14 07/29/16 16:02 07/29/16 19:58 07/30/16 03:23 Glucose (Fingerstick) 272mg/dL (70-99) 234mg/dL (70-99) 264mg/dL (70-99) White Blood Count 5.8x10^3/uL (4.0-11.0) Red Blood Count 3.25x10^6/uL (4.30-5.70) Hemoglobin 10.6g/dL (13.0-17.5) Hematocrit 32.9% (39.0-53.0) Mean Corpuscular Volume 101fL (79-100) Mean Corpuscular Hemoglobin 33pg (25-35) Mean Corpuscular Hemoglobin Concent 32g/dL (31-37) Red Cell Distribution Width 14.3% (11.5-14.5) Platelet Count 150x10^3/uL (140-400) Neutrophils (%) (Auto) 82% (31-73) Lymphocytes (%) (Auto) 10% (24-48) Monocytes (%) (Auto) 6% (0-9) Eosinophils (%) (Auto) 2% (0-3) Basophils (%) (Auto) 0% (0-3) Neutrophils # (Auto) 4.7x10^3uL (1.8-7.7) Lymphocytes # (Auto) 0.5x10^3/uL (1.0-4.8) Monocytes # (Auto) 0.4x10^3/uL (0.0-1.1) Eosinophils # (Auto) 0.1x10^3/uL (0.0-0.7) Basophils # (Auto) 0.0x10^3/uL (0.0-0.2) Sodium Level 147mmol/L (136-145) Potassium Level 4.1mmol/L (3.5-5.1) Chloride Level 102mmol/L (98-107) Carbon Dioxide Level > 45mmol/L (21-32) Anion Gap 0 (6-14) Blood Urea Nitrogen 27mg/dL (8-26) Creatinine 0.7mg/dL (0.7-1.3) Estimated GFR (Cockcroft-Gault) 107.2 Glucose Level 282mg/dL (70-99) Calcium Level 9.1mg/dL (8.5-10.1) Test 07/30/16 07:49 Glucose (Fingerstick) 204mg/dL (70-99) Review of Systems Review of Systems denies fever/chills denies chest pain Assessment and Plan Assessmemt and Plan Assessment: - Mechanical fall vs syncope - Hypoxic respiratory failure - Chronic obstructive pulmonary disease. - Atrial fibrillation, currently rate controlled with pacemaker present - Coronary artery disease and CABG history. - Hypertension. - Pleural effusions s/p thoracentesis - Hyperlipidemia. - Gastroesophageal reflux disease. - UTI with culture showing E coli - Physical debility - Acute on Chronic CHF with EF 60% - History bladder and prostate cancer with urostomy in place Plan: - discharge home with Hospice; discussed case with representatives from [facility] - Appreciate palliative care. - Plan discussed with and daughter. - Med list reconciled - Cont oxygen supplementation - Appreciate subspecialty input Problems: Comment Review of Relevant I have reviewed the following items ede (where applicable) has been applied. Labs Laboratory Tests Test 07/28/16 16:55 07/28/16 20:36 07/29/16 07:25 07/29/16 12:14 Glucose (Fingerstick) 256mg/dL (70-99) 235mg/dL (70-99) 293mg/dL (70-99) 272mg/dL (70-99) Test 07/29/16 16:02 07/29/16 19:58 07/30/16 03:23 07/30/16 07:49 Glucose (Fingerstick) 234mg/dL (70-99) 264mg/dL (70-99) 204mg/dL (70-99) White Blood Count 5.8x10^3/uL (4.0-11.0) Red Blood Count 3.25x10^6/uL (4.30-5.70) Hemoglobin 10.6g/dL (13.0-17.5) Hematocrit 32.9% (39.0-53.0) Mean Corpuscular Volume 101fL (79-100) Mean Corpuscular Hemoglobin 33pg (25-35) Mean Corpuscular Hemoglobin Concent 32g/dL (31-37) Red Cell Distribution Width 14.3% (11.5-14.5) Platelet Count 150x10^3/uL (140-400) Neutrophils (%) (Auto) 82% (31-73) Lymphocytes (%) (Auto) 10% (24-48) Monocytes (%) (Auto) 6% (0-9) Eosinophils (%) (Auto) 2% (0-3) Basophils (%) (Auto) 0% (0-3) Neutrophils # (Auto) 4.7x10^3uL (1.8-7.7) Lymphocytes # (Auto) 0.5x10^3/uL (1.0-4.8) Monocytes # (Auto) 0.4x10^3/uL (0.0-1.1) Eosinophils # (Auto) 0.1x10^3/uL (0.0-0.7) Basophils # (Auto) 0.0x10^3/uL (0.0-0.2) Sodium Level 147mmol/L (136-145) Potassium Level 4.1mmol/L (3.5-5.1) Chloride Level 102mmol/L (98-107) Carbon Dioxide Level > 45mmol/L (21-32) Anion Gap 0 (6-14) Blood Urea Nitrogen 27mg/dL (8-26) Creatinine 0.7mg/dL (0.7-1.3) Estimated GFR (Cockcroft-Gault) 107.2 Glucose Level 282mg/dL (70-99) Calcium Level 9.1mg/dL (8.5-10.1) Laboratory Tests Test 07/29/16 12:14 07/29/16 16:02 07/29/16 19:58 07/30/16 03:23 Glucose (Fingerstick) 272mg/dL (70-99) 234mg/dL (70-99) 264mg/dL (70-99) White Blood Count 5.8x10^3/uL (4.0-11.0) Red Blood Count 3.25x10^6/uL (4.30-5.70) Hemoglobin 10.6g/dL (13.0-17.5) Hematocrit 32.9% (39.0-53.0) Mean Corpuscular Volume 101fL (79-100) Mean Corpuscular Hemoglobin 33pg (25-35) Mean Corpuscular Hemoglobin Concent 32g/dL (31-37) Red Cell Distribution Width 14.3% (11.5-14.5) Platelet Count 150x10^3/uL (140-400) Neutrophils (%) (Auto) 82% (31-73) Lymphocytes (%) (Auto) 10% (24-48) Monocytes (%) (Auto) 6% (0-9) Eosinophils (%) (Auto) 2% (0-3) Basophils (%) (Auto) 0% (0-3) Neutrophils # (Auto) 4.7x10^3uL (1.8-7.7) Lymphocytes # (Auto) 0.5x10^3/uL (1.0-4.8) Monocytes # (Auto) 0.4x10^3/uL (0.0-1.1) Eosinophils # (Auto) 0.1x10^3/uL (0.0-0.7) Basophils # (Auto) 0.0x10^3/uL (0.0-0.2) Sodium Level 147mmol/L (136-145) Potassium Level 4.1mmol/L (3.5-5.1) Chloride Level 102mmol/L (98-107) Carbon Dioxide Level > 45mmol/L (21-32) Anion Gap 0 (6-14) Blood Urea Nitrogen 27mg/dL (8-26) Creatinine 0.7mg/dL (0.7-1.3) Estimated GFR (Cockcroft-Gault) 107.2 Glucose Level 282mg/dL (70-99) Calcium Level 9.1mg/dL (8.5-10.1) Test 07/30/16 07:49 Glucose (Fingerstick) 204mg/dL (70-99) Microbiology 07/26/16 Gram Stain - Final, Complete 07/28/16 Gram Stain - Final, Complete 07/24/16 Urine Culture - Final, Complete 07/24/16 Urine Culture Result 1 (TAJ) - Final, Complete 07/24/16 Antimicrobic Susceptibility - Final, Complete Medications Current Medications Ondansetron HCl (Zofran) 4 mg PRN Q8HRS PRN IV NAUSEA/VOMITING; Start 07/24/16 at 02:15; Stop 07/24/16 at 16:35; Status DC Morphine Sulfate 2 mg 2 mg PRN Q2HR PRN IV SEVERE PAIN; Start 07/24/16 at 02:15 ; Stop 07/25/16 at 02:14; Status DC Ceftriaxone Sodium (Rocephin 1gm Ivpb For Omni) 50 ml @ 100 mls/hr 1X ONCE IV Last administered on 07/24/16t 04:08; Start 07/24/16 at 03:00; Stop 07/24/16 at 03:29; Status DC Insulin Aspart (Novolog) 0-5 UNITS TIDWMEALS SQ Last administered on 07/29/16t 17:45; Start 07/24/16 at 12:00 Dextrose 12.5 gm PRN Q15MIN PRN IV SEE COMMENTS; Start 07/24/16 at 08:45 Insulin Aspart (Novolog) 17 units 1X ONCE SQ Last administered on 07/24/16 09 :20; Start 07/24/16 at 09:00; Stop 07/24/16 at 09:06; Status DC Potassium Chloride (Klor-Con) 40 meq BID PO Last administered on 07/24/16 20: 16; Start 07/24/16 at 10:15; Stop 07/24/16 at 23:00; Status DC Acetaminophen (Tylenol) 325 mg PRN Q6HRS PRN PO MILD PAIN / TEMP; Start at 11:30 Acetaminophen/ Hydrocodone Bitart (Lortab 5/325) 1 tab PRN Q6HRS PRN PO MODERATE TO SEVERE PAIN Last administered on 07/24/16 12:06; Start 07/24/16 at 11:30; Stop 07/24/16 at 16:36; Status DC Hydralazine HCl (Apresoline) 10 mg PRN Q4HRS PRN IVP ELEVATED BP, SEE COMMENTS ; Start 07/24/16 at 11:30 Ondansetron HCl (Zofran) 4 mg PRN Q8HRS PRN IV NAUSEA/VOMITING; Start 07/24/16 at 11:30 Albuterol Sulfate (Ventolin Neb Soln) 2.5 mg PRN Q4HRS PRN NEB SHORTNESS OF BREATH; Start 07/24/16 at 11:30; Stop 07/24/16 at 16:35; Status DC Aspirin (Ana M Aspirin) 325 mg DAILY PO Last administered on 07/29/16 08:46; Start 07/24/16 at 12:00 Atorvastatin Calcium (Lipitor) 40 mg QHS PO Last administered on 07/29/16 20: 26; Start 07/24/16 at 21:00 Clopidogrel Bisulfate (Plavix) 75 mg DAILY PO Last administered on 07/29/16 08 :46; Start 07/24/16 at 12:00 Docusate Sodium (Colace) 100 mg PRN BID PRN PO CONSTIPATION Last administered on 07/25/16 08:58; Start 07/24/16 at 11:30 Furosemide (Lasix) 40 mg BID92 PO Last administered on 07/27/16 09:28; Start 07/24/16 at 11:30; Stop 07/27/16 at 10:45; Status DC Acetaminophen/ Hydrocodone Bitart (Lortab 5/325) 1 tab PRN Q4HRS PRN PO PAIN Last administered on 07/27/16 23:32; Start 07/24/16 at 11:30; Stop 07/28/16 at 16:16; Status DC Insulin Detemir (Levemir) 10 units HS SQ Last administered on 07/26/16 21:14; Start 07/24/16 at 21:00; Stop 07/27/16 at 07:08; Status DC Albuterol Sulfate (Ventolin Neb Soln) 2.5 mg PRN Q4HRS PRN NEB SHORTNESS OF BREATH; Start 07/24/16 at 11:45 Metoprolol Tartrate (Lopressor) 25 mg DAILY PO Last administered on 07/25/16 09:00; Start 07/24/16 at 12:00; Stop 07/25/16 at 13:10; Status DC Pantoprazole Sodium (Protonix) 40 mg DAILYAC PO Last administered on 07/29/16 08:46; Start 07/24/16 at 11:30 Trazodone HCl (Desyrel) 100 mg QHS PO Last administered on 07/27/16 22:13; Start 07/24/16 at 21:00; Stop 07/28/16 at 16:16; Status DC Vitamin D (Vitamin D3) 2,000 unit DAILY PO Last administered on 07/29/16 08:46 ; Start 07/24/16 at 12:00 Insulin Aspart (Novolog) 12 units TIDAC SQ Last administered on 07/29/16 17:44 ; Start 07/24/16 at 16:30 Magnesium Hydroxide (Milk Of Magnesia) 2,400 mg PRN DAILY PRN PO CONSTIPATION; Start 07/24/16 at 11:45 Non-Formulary Medication 5 mg HS PO ; Start 07/24/16 at 21:00; Stop 07/24/16 at 21:00; Status DC Furosemide (Lasix) 40 mg 1X ONCE IVP Last administered on 07/24/16 12:45; Start 07/24/16 at 12:30; Stop 07/24/16 at 12:31; Status DC Potassium Chloride (Klor-Con) 20 meq 1X ONCE PO Last administered on 12:44; Start 07/24/16 at 12:45; Stop 07/24/16 at 12:46; Status DC Insulin Detemir (Levemir) 12 units 1X ONCE SQ ; Start 07/24/16 at 18:15; Stop 07/24/16 at 18:20; Status DC Insulin Aspart (Novolog) 12 units 1X ONCE SQ Last administered on 07/24/16 18 :10; Start 07/24/16 at 18:30; Stop 07/24/16 at 18:32; Status DC Heparin Sodium (Porcine) 5,000 unit Q8HRS SQ Last administered on 07/29/16 22: 34; Start 07/24/16 at 22:00 Ciprofloxacin (Cipro) 250 mg BID PO Last administered on 07/26/16 14:34; Start 07/25/16 at 12:00; Stop 07/26/16 at 17:19; Status DC Metoprolol Tartrate 25 mg 25 mg BID PO Last administered on 07/28/16 12:10; Start 07/25/16 at 21:00; Stop 07/28/16 at 16:16; Status DC Sodium Chloride (Iv Sodium Chloride 0.9% 500ml Bag) 500 ml @ 500 mls/hr 1X ONCE IV Last administered on 07/25/16 14:00; Start 07/25/16 at 14:00; Stop 06/29 at 14:59; Status DC Furosemide (Lasix) 40 mg 1X ONCE IVP ; Start 07/25/16 at 14:45; Stop 07/25/16 at 14:48; Status DC Lidocaine/Sodium Bicarbonate (Buffered Lidocaine 1%) 20 ml STK-MED ONCE IJ ; Start 07/26/16 at 12:15; Stop 07/26/16 at 12:16; Status DC Fentanyl Citrate (Fentanyl 2ml Vial) 100 mcg STK-MED ONCE .ROUTE ; Start at 12:15; Stop 07/26/16 at 12:16; Status DC Midazolam HCl (Versed) 2 mg STK-MED ONCE .ROUTE ; Start 07/26/16 at 12:15; Stop 07/26/16 at 12:16; Status DC Lidocaine/Sodium Bicarbonate 20 ml 20 ml 1X ONCE IJ Last administered on 12:44; Start 07/26/16 at 13:00; Stop 07/26/16 at 13:01; Status DC Ceftriaxone Sodium/Sodium Chloride (Rocephin/Iv Sodium Chloride 0.9% 50ml) 50 ml @ 100 mls/hr Q24H IV Last administered on 07/29/16 17:38; Start 07/26/16 at 17:30 Insulin Detemir (Levemir) 15 units HS SQ Last administered on 07/29/16 20:29; Start 07/27/16 at 21:00 Furosemide (Lasix) 40 mg DAILY PO Last administered on 07/29/16 08:46; Start 07/28/16 at 09:00 Trazodone HCl (Desyrel) 50 mg PRN QHS PRN PO INSOMNIA; Start 07/28/16 at 16:30 Acetaminophen/ Hydrocodone Bitart (Lortab 5/325) 1 tab PRN Q6HRS PRN PO PAIN Last administered on 07/28/16 23:27; Start 07/28/16 at 16:30 Metoprolol Tartrate (Lopressor) 25 mg DAILY PO Last administered on 07/29/16 08:47; Start 07/29/16 at 09:00; Stop 07/29/16 at 12:43; Status DC Polyethylene Glycol (miraLAX PACKET) 17 gm PRN BID PRN PO CONSTIPATION; Start 07/28/16 at 17:00 Metoprolol Tartrate (Lopressor) 12.5 mg BID PO Last administered on 07/29/16 20:26; Start 07/29/16 at 21:00 Active Scripts Active Reported Colace (Docusate Sodium) 100 Mg Capsule 1 Cap PO BID PRN Milk Of Magnesia (Magnesium Hydroxide) 2,400 Mg/10 Ml Oral.susp 2,400 Mg PO PRN Q24HRS PRN Melatonin 5 Mg Tablet 5 Mg PO HS Duoneb 0.5-3(2.5) Mg/3 Ml (Albuterol/Ipratropium) 3 Ml Ampul.neb 3 Ml NEB PRN Q4HRS PRN Atorvastatin Calcium 40 Mg Tablet 1 Tab PO DAILY Hydrocodone-Apap 5-325 (Hydrocodone Bit/Acetaminophen) 1 Each Tablet 1 Tab PO PRN Q4HRS PRN Clopidogrel (Clopidogrel Bisulfate) 75 Mg Tablet 1 Tab PO DAILY Furosemide 40 Mg Tablet 40 Mg PO BID Metoprolol Tartrate 25 Mg Tablet 1 Tab PO DAILY Vitamin D-3 (Cholecalciferol (Vitamin D3)) 2,000 Unit Tablet 2,000 Unit PO DAILY Humalog (Insulin Lispro) 100 Unit/1 Ml Cartridge 12 Unit SQ TIDAC Pantoprazole Sodium 40 Mg Tablet.dr 1 Tab PO DAILY Trazodone Hcl 50 Mg Tablet 100 Mg PO QHS Levemir Flexpen (Insulin Detemir) 100 Unit/1 Ml Insuln.pen 10 Unit SQ HS Aspirin 325 Mg Tablet 1 Tab PO DAILY Vitals/I & O Vital Sign - Last 24 Hours 07/29/16 07/29/16 07/29/16 07/29/16 15:16 19:35 20:00 20:26 Temp 97.9 98.1 97.9 98.1 Pulse 58 86 89 Resp B/P 145/69 146/69 146/69 Pulse Ox 93 95 O2 Delivery Nasal Cannula Nasal Cannula Nasal Cannula O2 Flow Rate 5.0 5.0 4.0 07/29/16 07/30/16 07/30/16 22:30 03:25 07:46 Temp 97.6 97.8 97.8 97.6 97.8 97.8 Pulse 89 83 92 Resp B/P 152/74 148/71 135/70 Pulse Ox 98 98 98 O2 Delivery Nasal Cannula Nasal Cannula Nasal Cannula O2 Flow Rate 5.0 5.0 5.0 Intake and Output 07/29/16 07/29/16 07/30/16 15:00 23:00 07:00 Intake Total 800 ml 400 ml Output Total 800 ml 600 ml 1750 ml Balance -800 ml 200 ml -1350 ml DAVID SALOMON III DO Jul 30, 2016 11:32
[2016-07-30] MEDS: HEPARIN PF for SUB-Q USE 5,000 UNIT/0.5 ML VIAL. SQ SCH ×2 (11:57→14:00)
--- NOTE | 2016-07-30 13:02 | PDOC ---
PULMONARY PROGRESS NOTES Subjective comfortable on 4 litres Vitals Vital Signs Date Time Temp Pulse Resp B/P Pulse Ox O2 Delivery O2 Flow Rate FiO2 07/30/16 11:31 92 135/70 07/30/16 11:30 97.7 30 90 Nasal Cannula 4.0 97.7 Comments ros as above other sys otherwise neg General: No acute distress HEENT: Other (nose throat clear, nc at perrl) Lungs: Other (Decreased bs L>R) Cardiovascular: S1, S2 Abdomen: Soft, Non-tender, Other (no mass) Neuro Exam: Alert Extremities: Other (1+edema) Skin: Warm Labs Laboratory Tests Test 07/28/16 16:55 07/28/16 20:36 07/29/16 07:25 07/29/16 12:14 Glucose (Fingerstick) 256mg/dL (70-99) 235mg/dL (70-99) 293mg/dL (70-99) 272mg/dL (70-99) Test 07/29/16 16:02 07/29/16 19:58 07/30/16 03:23 07/30/16 07:49 Glucose (Fingerstick) 234mg/dL (70-99) 264mg/dL (70-99) 204mg/dL (70-99) White Blood Count 5.8x10^3/uL (4.0-11.0) Red Blood Count 3.25x10^6/uL (4.30-5.70) Hemoglobin 10.6g/dL (13.0-17.5) Hematocrit 32.9% (39.0-53.0) Mean Corpuscular Volume 101fL (79-100) Mean Corpuscular Hemoglobin 33pg (25-35) Mean Corpuscular Hemoglobin Concent 32g/dL (31-37) Red Cell Distribution Width 14.3% (11.5-14.5) Platelet Count 150x10^3/uL (140-400) Neutrophils (%) (Auto) 82% (31-73) Lymphocytes (%) (Auto) 10% (24-48) Monocytes (%) (Auto) 6% (0-9) Eosinophils (%) (Auto) 2% (0-3) Basophils (%) (Auto) 0% (0-3) Neutrophils # (Auto) 4.7x10^3uL (1.8-7.7) Lymphocytes # (Auto) 0.5x10^3/uL (1.0-4.8) Monocytes # (Auto) 0.4x10^3/uL (0.0-1.1) Eosinophils # (Auto) 0.1x10^3/uL (0.0-0.7) Basophils # (Auto) 0.0x10^3/uL (0.0-0.2) Sodium Level 147mmol/L (136-145) Potassium Level 4.1mmol/L (3.5-5.1) Chloride Level 102mmol/L (98-107) Carbon Dioxide Level > 45mmol/L (21-32) Anion Gap 0 (6-14) Blood Urea Nitrogen 27mg/dL (8-26) Creatinine 0.7mg/dL (0.7-1.3) Estimated GFR (Cockcroft-Gault) 107.2 Glucose Level 282mg/dL (70-99) Calcium Level 9.1mg/dL (8.5-10.1) Test 07/30/16 11:24 07/30/16 12:23 Glucose (Fingerstick) 344mg/dL (70-99) 320mg/dL (70-99) Laboratory Tests Test 07/29/16 16:02 07/29/16 19:58 07/30/16 03:23 07/30/16 07:49 Glucose (Fingerstick) 234mg/dL (70-99) 264mg/dL (70-99) 204mg/dL (70-99) White Blood Count 5.8x10^3/uL (4.0-11.0) Red Blood Count 3.25x10^6/uL (4.30-5.70) Hemoglobin 10.6g/dL (13.0-17.5) Hematocrit 32.9% (39.0-53.0) Mean Corpuscular Volume 101fL (79-100) Mean Corpuscular Hemoglobin 33pg (25-35) Mean Corpuscular Hemoglobin Concent 32g/dL (31-37) Red Cell Distribution Width 14.3% (11.5-14.5) Platelet Count 150x10^3/uL (140-400) Neutrophils (%) (Auto) 82% (31-73) Lymphocytes (%) (Auto) 10% (24-48) Monocytes (%) (Auto) 6% (0-9) Eosinophils (%) (Auto) 2% (0-3) Basophils (%) (Auto) 0% (0-3) Neutrophils # (Auto) 4.7x10^3uL (1.8-7.7) Lymphocytes # (Auto) 0.5x10^3/uL (1.0-4.8) Monocytes # (Auto) 0.4x10^3/uL (0.0-1.1) Eosinophils # (Auto) 0.1x10^3/uL (0.0-0.7) Basophils # (Auto) 0.0x10^3/uL (0.0-0.2) Sodium Level 147mmol/L (136-145) Potassium Level 4.1mmol/L (3.5-5.1) Chloride Level 102mmol/L (98-107) Carbon Dioxide Level > 45mmol/L (21-32) Anion Gap 0 (6-14) Blood Urea Nitrogen 27mg/dL (8-26) Creatinine 0.7mg/dL (0.7-1.3) Estimated GFR (Cockcroft-Gault) 107.2 Glucose Level 282mg/dL (70-99) Calcium Level 9.1mg/dL (8.5-10.1) Test 07/30/16 11:24 07/30/16 12:23 Glucose (Fingerstick) 344mg/dL (70-99) 320mg/dL (70-99) Medications Active Scripts Medications Dose Route/Sig Days Date Category Colace (Docusate Sodium) 100 Mg Capsule 1 Cap PO BID PRN 07/24/16 Reported Milk Of Magnesia (Magnesium Hydroxide) 2,400 Mg/10 Ml Oral.susp 2,400 Mg PO PRN Q24HRS PRN 07/24/16 Reported Melatonin 5 Mg Tablet 5 Mg PO HS 07/24/16 Reported Duoneb 0.5-3(2.5) Mg/3 Ml (Albuterol/Ipratropium) 3 Ml Ampul.neb 3 Ml NEB PRN Q4HRS PRN 07/24/16 Reported Atorvastatin Calcium 40 Mg Tablet 1 Tab PO DAILY 07/24/16 Reported Hydrocodone-Apap 5-325 (Hydrocodone Bit/Acetaminophen) 1 Each Tablet 1 Tab PO PRN Q4HRS PRN 07/24/16 Reported Clopidogrel (Clopidogrel Bisulfate) 75 Mg Tablet 1 Tab PO DAILY 07/24/16 Reported Furosemide 40 Mg Tablet 40 Mg PO BID 07/24/16 Reported Metoprolol Tartrate 25 Mg Tablet 1 Tab PO DAILY 07/24/16 Reported Vitamin D-3 (Cholecalciferol (Vitamin D3)) 2,000 Unit Tablet 2,000 Unit PO DAILY 07/24/16 Reported Humalog (Insulin Lispro) 100 Unit/1 Ml Cartridge 12 Unit SQ TIDAC 07/24/16 Reported Pantoprazole Sodium 40 Mg Tablet.dr 1 Tab PO DAILY 07/24/16 Reported Trazodone Hcl 50 Mg Tablet 100 Mg PO QHS 05/11/14 Reported Levemir Flexpen (Insulin Detemir) 100 Unit/1 Ml Insuln.pen 10 Unit SQ HS 05/11/14 Reported Aspirin 325 Mg Tablet 1 Tab PO DAILY 05/11/14 Reported Comments cxr reviewed, interval left thoracentesis. No post procedure pneumothorax identified. Impression . 1. Acute hypoxic respiratory failure secondary to diastolic congestive heart failure. 2. Abnormal chest x-ray with bilateral interstitial infiltrates, more on the left than on the right and bilateral pleural effusion and more on the left than on the right. , s/p thoracentesis on the left side, transudate, 2/2 to CHF, neg. cytology 3. No significant history of tobacco use. 4. History of prior left-sided thoracentesis in February, it was not a hemothorax. 5. Syncopal episode, present on admission. Cardiology is following. Plan . 1. cont diuresis. 2. Reviewed ct chest/ LLL effusion, not loculated less than before 3. thoracentesis 07/26, will withold further thoracentesis unless symptomatic. d /w and daughter 4. o2 titration. 5. Follow cardiology recommendation. 6. Pt to go home with home hospice KEMI CHISHOLM MD Jul 30, 2016 13:02
[2016-07-30] MEDS: CEFTRIAXONE SODIUM 1 GM in IV NORMAL SALINE 50ML 50 ML IV SCH (17:30)
== END 2016-07-30 19:24 | disposition hospice, home (50) | DRG 291 ==
LOC: ER 23:37 → 2 NORTH 07-24 00:22 → UNDODISIN 07-25 15:50
PROVIDERS: ADMIT Internal Medicine; ATTEND Internal Medicine
PROC: 0W9B3ZX Drainage of Left Pleural Cavity, Percutaneous Approach, Diagnostic (ICD-10-PCS; principal; 2016-07-26)
DX: I50.33 Acute on chronic diastolic (congestive) heart failure (principal); J96.01 Acute respiratory failure with hypoxia; E87.0 Hyperosmolality and hypernatremia; N39.0 Urinary tract infection, site not specified; J44.0 Chronic obstructive pulmonary disease with (acute) lower respiratory infection; E11.9 Type 2 diabetes mellitus without complications; E78.00 Pure hypercholesterolemia, unspecified; E78.5 Hyperlipidemia, unspecified; E87.6 Hypokalemia; F03.90 Unspecified dementia, unspecified severity, without behavioral disturbance, psychotic disturbance, mood disturbance, and anxiety; I25.10 Atherosclerotic heart disease of native coronary artery without angina pectoris; I48.2 Chronic atrial fibrillation; W01.0XXA Fall on same level from slipping, tripping and stumbling without subsequent striking against object, initial encounter; Z96.642 Presence of left artificial hip joint; I11.0 Hypertensive heart disease with heart failure; I95.1 Orthostatic hypotension; K21.9 Gastro-esophageal reflux disease without esophagitis; M19.90 Unspecified osteoarthritis, unspecified site; Z51.5 Encounter for palliative care; Z85.46 Personal history of malignant neoplasm of prostate; Z85.51 Personal history of malignant neoplasm of bladder; Z87.891 Personal history of nicotine dependence; Z95.1 Presence of aortocoronary bypass graft; Z99.81 Dependence on supplemental oxygen; Z88.2 Allergy status to sulfonamides; Y93.89 Activity, other specified; Y92.89 Other specified places as the place of occurrence of the external cause
CPT/HCPCS: 32555; 36415; 70450; 71010; 71035; 71250; 72125; 80048; 80061; 80076; 81001; 82945; 82947; 83605; 83615; 83690; 83735; 83880; 83986; 84155; 84157; 84443; 84484; 85027; 85610; 85730; 87070; 87071; 87075; 87086; 87186; 87205; 87804; 88112; 88305; 89050; 93005; 93306; 93880; 94250; 94760; A4215; C1729; C1892; C1894; J0690; J0696; J1815; J1940; J7040; 97110; 97116; 97530; 97535